=== PATIENT | male | born 1975 | race Caucasian/White ===

== ENCOUNTER 2017-01-09 21:47 | Inpatient (IN) | payer BC ==
[~2017-01-09] VITALS: Ht 190.5 cm; Wt 117.3 kg
[~2017-01-09 21:47] MED LIST: DEXT20TA2 PO; FAMO-63 PO; HYDR-2666 PO; HYDR-971 PO; HYDR1TAB10 PO; INSU100C SQ; INSU100I27 SQ; INSU100I30 SQ; LISI10TA2 PO; LORA0.5T96 PO; OLME40TA PO; ONDA4TAB10 PO; ONDA4TAB7 PO; OXYC-244 PO; SIMV40TA3 PO; ZOLP10TA PO
[2017-01-09] MEDS ORDERED: IV NORMAL SALINE 1000ML BAG 1,000 ML IV SCH (22:30)
[2017-01-09 22:43] LABS: BASO % 0 % (0-3); EOS % 2 % (0-3); HEMOGLOBIN 16.3 g/dL (13.0-17.5); LYMPH # 1.5 x10^3/uL (1.0-4.8); LYMPH % 18 % (24-48); MEAN CORPUSCULAR HEMOGLOBIN 31 pg (25-35); MEAN CORPUSCULAR HGB CONC 35 g/dL (31-37); MEAN CORPUSCULAR VOLUME 88 fL (79-100); MONO % 6 % (0-9); NEUT % 75 % (31-73); PLATELET COUNT 269 x10^3/uL (140-400); RED BLOOD COUNT 5.35 x10^6/uL (4.30-5.70); RED CELL DISTRIBUTION WIDTH 12.9 % (11.5-14.5); WHITE BLOOD COUNT 8.8 x10^3/uL (4.0-11.0)
[2017-01-09 23:03] LABS: ALBUMIN 3.4 g/dL (3.4-5.0); ALBUMIN/GLOBULIN RATIO 0.8 (1.0-1.7); CALCIUM 9.2 mg/dL (8.5-10.1); CREATININE 1.3 mg/dL (0.7-1.3); GFR 60.8; POTASSIUM 4.1 mmol/L (3.5-5.1); TOTAL BILIRUBIN 0.7 mg/dL (0.2-1.0); TOTAL PROTEIN 7.9 g/dL (6.4-8.2)
--- NOTE | 2017-01-09 23:26 | PHYS DOC ---
Past Medical History Past Medical History: Diabetes-Type I, Hypertension Past Surgical History: Other Additional Past Surgical Histo: BILATERAL SHOULDER Alcohol Use: Occasionally Drug Use: None Adult General Chief Complaint Chief Complaint: BLOOD SUGAR PROBLEM HPI HPI Patient is a 41 year old female male who comes to the ED with a complaint of blood sugars running high. Patient states his blood sugars have been in the 400s for about 2 days and this evening was too high to register on his Accu- Chek machine. During this time, he has not felt very well, he felt fatigued, he' s had a chest cold with a cough. He denies fever or chills, he has not been short of air. Patient has had diabetes since 2004. He's been on insulin all of that time. He previously was on an insulin pump but since then he was not able to afford it. He uses Tresiba long-acting insulin 2 units daily, and he also takes Humalog 1- 10 units with food. Tonight at 6:15 PM he took 30 units of Humalog and 3 hours later his blood sugar was still over 500. Patient also complains of right shoulder pain, he is going to be having surgery on that shoulder sometimes soon, he take Vicoprofen for the pain at home. Primary care [place] nurse practitioner in the office of Review of Systems Review of Systems Constitutional: Denies fever or chills [] Eyes: Denies change in visual acuity, redness, or eye pain [] HENT: Denies nasal congestion or sore throat [] Respiratory: As in history of present illness, chest congestion and cough but no shortness of breath Cardiovascular: Denies chest pain that sounds cardiac GI: Denies abdominal pain, nausea, vomiting, bloody stools or diarrhea [] : Denies dysuria or hematuria [] Musculoskeletal: Right shoulder pain Integument: Denies rash or skin lesions [] Neurologic: Denies headache, focal weakness or sensory changes [] Endocrine: As in history of present illness Current Medications Current Medications Current Medications Medications (Trade) Dose Ordered Sig/Radha Start Time Stop Time Status Last Admin Dose Admin Dextrose (Dextrose 50%-Water Syringe) 12.5 gm PRN Q15MIN PRN 01/09/17 23:30 Insulin Human Regular (NovoLIN R VIAL) 5 unit 1X ONCE 01/09/17 23:30 01/09/17 23:31 DC 01/09/17 23:27 5 UNIT Ondansetron HCl (Zofran) 4 mg PRN Q8HRS PRN 01/09/17 23:30 01/10/17 23:29 Sodium Chloride 1,000 ml @ 200 mls/hr Q5H 01/09/17 23:30 01/10/17 23:29 01/10/17 00:15 200 MLS/HR Allergies Allergies Allergies Coded Allergies Type Severity Reaction Last Updated Verified No Known Drug Allergies 02/17/16 No Physical Exam Physical Exam Constitutional: Well developed, well nourished, no acute distress, non-toxic appearance. Alert, mentating normally. HENT: Normocephalic, atraumatic, bilateral external ears normal, nose normal. [] Eyes: conjunctiva normal, no discharge. [] Neck: Normal range of motion, no stridor. [] Cardiovascular:Heart rate regular rhythm, no murmur [] Lungs & Thorax: Bilateral breath sounds clear to auscultation [] Abdomen: Bowel sounds normal, soft, no tenderness, no masses, no pulsatile masses. [] Skin: Warm, dry, no erythema, no rash. [] Back: No tenderness, no CVA tenderness. [] Extremities: No tenderness, no cyanosis, no clubbing, ROM intact, no edema. [] Neurologic: Alert and oriented X 3, normal motor function, normal sensory function, no focal deficits noted. [] Current Patient Data Vital Signs Vital Signs Date Time Temp Pulse Resp B/P (MAP) Pulse Ox O2 Delivery O2 Flow Rate FiO2 01/09/17 23:15 81 143/96 (112) 92 Room Air 01/09/17 22:12 97.5 18 97.5 Lab Values Laboratory Tests Test 01/09/17 22:11 01/09/17 22:35 Glucose (Fingerstick) 592 mg/dL (70-99) *H White Blood Count 8.8 x10^3/uL (4.0-11.0) Red Blood Count 5.35 x10^6/uL (4.30-5.70) Hemoglobin 16.3 g/dL (13.0-17.5) Hematocrit 47.0 % (39.0-53.0) Mean Corpuscular Volume 88 fL (79-100) Mean Corpuscular Hemoglobin 31 pg (25-35) Mean Corpuscular Hemoglobin Concent 35 g/dL (31-37) Red Cell Distribution Width 12.9 % (11.5-14.5) Platelet Count 269 x10^3/uL (140-400) Neutrophils (%) (Auto) 75 % (31-73) H Lymphocytes (%) (Auto) 18 % (24-48) L Monocytes (%) (Auto) 6 % (0-9) Eosinophils (%) (Auto) 2 % (0-3) Basophils (%) (Auto) 0 % (0-3) Neutrophils # (Auto) 6.6 x10^3uL (1.8-7.7) Lymphocytes # (Auto) 1.5 x10^3/uL (1.0-4.8) Monocytes # (Auto) 0.5 x10^3/uL (0.0-1.1) Eosinophils # (Auto) 0.1 x10^3/uL (0.0-0.7) Basophils # (Auto) 0.0 x10^3/uL (0.0-0.2) Sodium Level 130 mmol/L (136-145) L Potassium Level 4.1 mmol/L (3.5-5.1) Chloride Level 93 mmol/L (98-107) L Carbon Dioxide Level 26 mmol/L (21-32) Anion Gap 11 (6-14) Blood Urea Nitrogen 24 mg/dL (8-26) Creatinine 1.3 mg/dL (0.7-1.3) Estimated GFR (Cockcroft-Gault) 60.8 BUN/Creatinine Ratio 18 (6-20) Glucose Level 594 mg/dL (70-99) *H Calcium Level 9.2 mg/dL (8.5-10.1) Total Bilirubin 0.7 mg/dL (0.2-1.0) Aspartate Amino Transferase (AST) 11 U/L (15-37) L Alanine Aminotransferase (ALT) 28 U/L (16-63) Alkaline Phosphatase 133 U/L (46-116) H Total Protein 7.9 g/dL (6.4-8.2) Albumin 3.4 g/dL (3.4-5.0) Albumin/Globulin Ratio 0.8 (1.0-1.7) L Laboratory Tests 01/09/17 22:35 Laboratory Tests 01/09/17 22:35 EKG EKG [] Radiology/Procedures Radiology/Procedures One view portable chest x-ray read by me. No acute cardiopulmonary abnormality. [] Course & Med Decision Making Course & Med Decision Making Pertinent Labs and Imaging studies reviewed. (See chart for details) 41-year-old male with a history of diabetes presents with elevated blood sugars for the last 2 days over 500. Here, his blood sugar is 594. He was given a liter of IV fluids and was given insulin 5 units IV. The patient has taken large doses of insulin at home to try to get his blood sugar down and has not been successful. I feel that it is unsafe for him to continue to administer large doses at home. I feel he needs to be hospitalized for blood sugar control. I discussed the case with Dr. Guardado, who agreed to admit the patient to the hospital. I wrote bridge orders. Patient is agreeable to be admitted for control of his blood sugar. I wrote for a sliding scale insulin and IV fluids. [] Dragon Disclaimer Dragon Disclaimer This electronic medical record was generated, in whole or in part, using a voice recognition dictation system. Departure Departure Impression: Primary Impression: Hyperglycemia Disposition: ADMITTED INPATIENT Admitting Physician: Milan Guardado Condition: STABLE Referrals: MILAN GUARDADO MD (PCP) DEBRA LOPEZ MD January 09, 2017 23:26
[2017-01-09] MEDS ORDERED: INSULIN REGULAR 100 UNIT/ML 10ML VIAL. IV ONE (23:30)
[2017-01-09] MEDS ORDERED: ONDANSETRON PF 4 MG/2 ML VIAL. IV PRN (23:30)
[2017-01-09] MEDS ORDERED: DEXTROSE 50% 25 GM / 50ML DISP.SYRIN. IV PRN (23:30)
[2017-01-09] MEDS ORDERED: ONDANSETRON PF 4 MG/2 ML VIAL. IV ONE (23:45)
[2017-01-09] MEDS ORDERED: HYDROcodone/APAP 10/325 1 TAB TABLET PO ONE (23:45)
[2017-01-10] MEDS: IV NORMAL SALINE 1000ML BAG 1,000 ML IV SCH ×3 (00:15→09:10)
[2017-01-10 00:44] VITALS: BP 132/99
[2017-01-10] MEDS ORDERED: HYDR-79 PO (00:46)
[2017-01-10] MEDS ORDERED: OMEP40CA5 PO (00:46)
[2017-01-10] MEDS ORDERED: ALPR1TAB2 PO (00:46)
[2017-01-10] MEDS ORDERED: OLME1TAB35 PO (00:46)
[2017-01-10] MEDS ORDERED: HYDROcodone/APAP 5/325MG 1 TAB TABLET PO PRN ×2 (01:00→01:15)
[2017-01-10 07:00] VITALS: BP 122/90
--- NOTE | 2017-01-10 08:16 | RAD ---
EXAM: CHEST 1 VIEW DATE: 07/05/2016 History: Elevated blood sugar, cough, congestion COMPARISON: None available. TECHNIQUE: Single portable radiograph of the chest FINDINGS: The cardiac silhouette is unremarkable. The lungs are clear bilaterally. The costophrenic sulci are clear and well demarcated. IMPRESSION: No radiographic evidence of an acute cardiopulmonary process.
[2017-01-10] MEDS: INSULIN ASPART 300 UNITS/3 ML INSULN.PEN SQ SCH ×2 (08:23→11:03)
[2017-01-10 10:39] VITALS: BP 146/87
--- NOTE | 2017-01-10 14:54 | PDOC ---
GENERAL General: see discharge summary. Problems: VITAL SIGNS Vital Signs: Vital Signs Date Time Temp Pulse Resp B/P (MAP) Pulse Ox O2 Delivery O2 Flow Rate FiO2 01/10/17 10:39 97.8 70 20 146/87 (106) 95 Room Air 97.8 I & O I & O Intake and Output 01/10/17 07:00 Intake Total 1200 ml Balance 1200 ml Intake Oral 200 ml IV Total 1000 ml ALLERGIES Allergies: Allergies Coded Allergies Type Severity Reaction Last Updated Verified No Known Drug Allergies 02/17/16 No MEDS Medications: Current Medications Medications (Trade) Dose Ordered Sig/Radha Start Time Stop Time Status Last Admin Dose Admin Acetaminophen/ Hydrocodone Bitart (Lortab 10/325) 1 tab 1X ONCE 01/09/17 23:45 01/09/17 23:46 DC 01/09/17 23:34 1 TAB Acetaminophen/ Hydrocodone Bitart (Lortab /325) 2 tab PRN Q4HRS PRN 01/10/17 01:15 01/10/17 09:13 2 TAB Dextrose (Dextrose 50%-Water Syringe) 12.5 gm PRN Q15MIN PRN 01/09/17 23:30 Insulin Aspart (NovoLOG) 0-7 UNITS TIDWMEALS 01/10/17 08:00 01/10/17 11:03 15 UNITS Insulin Human Regular (NovoLIN R VIAL) 5 unit 1X ONCE 01/09/17 23:30 01/09/17 23:31 DC 01/09/17 23:27 5 UNIT Ondansetron HCl (Zofran) 4 mg PRN Q8HRS PRN 01/09/17 23:30 01/10/17 23:29 Sodium Chloride 1,000 ml @ 200 mls/hr Q5H 01/09/17 23:30 01/10/17 23:29 01/10/17 09:10 200 MLS/HR LAB Lab: Laboratory Tests Test 01/09/17 22:11 01/09/17 22:35 01/10/17 00:21 01/10/17 04:50 Glucose (Fingerstick) 592 mg/dL (70-99) 359 mg/dL (70-99) 304 mg/dL (70-99) White Blood Count 8.8 x10^3/uL (4.0-11.0) Red Blood Count 5.35 x10^6/uL (4.30-5.70) Hemoglobin 16.3 g/dL (13.0-17.5) Hematocrit 47.0 % (39.0-53.0) Mean Corpuscular Volume 88 fL (79-100) Mean Corpuscular Hemoglobin 31 pg (25-35) Mean Corpuscular Hemoglobin Concent 35 g/dL (31-37) Red Cell Distribution Width 12.9 % (11.5-14.5) Platelet Count 269 x10^3/uL (140-400) Neutrophils (%) (Auto) 75 % (31-73) Lymphocytes (%) (Auto) 18 % (24-48) Monocytes (%) (Auto) 6 % (0-9) Eosinophils (%) (Auto) 2 % (0-3) Basophils (%) (Auto) 0 % (0-3) Neutrophils # (Auto) 6.6 x10^3uL (1.8-7.7) Lymphocytes # (Auto) 1.5 x10^3/uL (1.0-4.8) Monocytes # (Auto) 0.5 x10^3/uL (0.0-1.1) Eosinophils # (Auto) 0.1 x10^3/uL (0.0-0.7) Basophils # (Auto) 0.0 x10^3/uL (0.0-0.2) Sodium Level 130 mmol/L (136-145) Potassium Level 4.1 mmol/L (3.5-5.1) Chloride Level 93 mmol/L (98-107) Carbon Dioxide Level 26 mmol/L (21-32) Anion Gap 11 (6-14) Blood Urea Nitrogen 24 mg/dL (8-26) Creatinine 1.3 mg/dL (0.7-1.3) Estimated GFR (Cockcroft-Gault) 60.8 BUN/Creatinine Ratio 18 (6-20) Glucose Level 594 mg/dL (70-99) Calcium Level 9.2 mg/dL (8.5-10.1) Total Bilirubin 0.7 mg/dL (0.2-1.0) Aspartate Amino Transf (AST/SGOT) 11 U/L (15-37) Alanine Aminotransferase (ALT/SGPT) 28 U/L (16-63) Alkaline Phosphatase 133 U/L (46-116) Total Protein 7.9 g/dL (6.4-8.2) Albumin 3.4 g/dL (3.4-5.0) Albumin/Globulin Ratio 0.8 (1.0-1.7) Test 01/10/17 07:31 01/10/17 10:25 01/10/17 11:59 Glucose (Fingerstick) 359 mg/dL (70-99) 376 mg/dL (70-99) 285 mg/dL (70-99) MILAN GUARDADO MD January 10, 2017 14:54
--- NOTE | 2017-01-10 18:39 | HP ---
ADMIT DATE: 01/09/2017 CHIEF COMPLAINT AND HISTORY OF PRESENT ILLNESS: This 41-year-old white male is followed in our office with 4 days of diabetes and hypertension. He has had extremely high blood sugars over the last couple of days in the 400s and above and on the evening of admission it was too high ____. He has not felt well over the last couple of days with runny nose, cough type symptoms. Has not been short of breath, denies any fevers or chills with it. He was profoundly hyperglycemic in the Emergency Room, but not acidotic and then elected to admit him to the hospital for blood sugar control and further evaluation. PAST MEDICAL HISTORY: Remarkable for diabetes, which he has had over 10 years at this point, he has had a history of hypertension. PAST SURGICAL HISTORY: He has had bilateral shoulder surgery. SOCIAL HISTORY: He is nonsmoker, nondrug user. Occasionally drinks alcohol. FAMILY HISTORY: Noncontributory. MEDICATIONS: Brought with the patient, listed on the computer and have been addressed. ALLERGIES: He has no known drug allergies. PHYSICAL EXAMINATION: GENERAL: He is a well-developed, well-nourished white male in no acute distress, feels much better after fluids overnight. VITAL SIGNS: Stable. He is afebrile. HEAD, EYES, EARS, NOSE AND THROAT: Remarkable, history of mild rhinitis. NECK: Supple without bruit, thyromegaly. CHEST: Clear to auscultation and percussion. HEART: Regular rate and rhythm without S3, S4 or murmur. ABDOMEN: Soft, nontender, without hepatosplenomegaly or mass. EXTREMITIES: Without cyanosis, clubbing or edema. NEUROLOGIC: Intact. CBC is unremarkable at the time of admission. Sugars have coming down into the low 300s by the time of being seeing him after starting ____. Sodium was somewhat ____without on admission on 130 with normal renal function and slightly elevated alkaline phosphatase of 133. Chest x-ray in the Emergency Room showed no evidence of acute cardiopulmonary process. PLAN: The patient has been admitted. Hydration is ongoing. We will see him as he will take sliding scale insulin has been ordered and the patient will be monitored, managed and treated appropriately. MILAN GUARDADO MD DR: DEEPA/lynda JOB#: [id number] / [id number]
--- NOTE | 2017-01-10 22:47 | DS ---
DATE OF DISCHARGE: 01/10/2017 PRIMARY DIAGNOSES: Hyperglycemia driven by viral respiratory infection. ADDITIONAL DIAGNOSES: Diabetes, hypertension. CHIEF COMPLAINT AND HISTORY OF PRESENT ILLNESS: This is a 41-year-old white male admitted through the Emergency Room with sugars in the upper 500s with 2 days of upper respiratory-type illness and sugars that were not read____ on his monitor at home. SUMMARY OF STAY: The patient was admitted and hydrated throughout the stay and began eating on the morning of admission with sliding scale insulin sugars that were down less than 300 and the patient wished for discharge, which was discussed and will be doing a close outpatient followup. Sugars have started to elevate again, but the patient felt essentially almost back to normal and it was felt that he could be dismissed. DISPOSITION: The patient is discharged to home. He is discharged on ADA diet, activity as tolerated, ____. DISCHARGE MEDICATIONS: Listed on the medical record and have been addressed. MILAN GUARDADO MD DR: DEEPA/lynda JOB#: [id number] / [id number]
== END 2017-01-10 13:15 | disposition home or self-care (01) | DRG 639 ==
LOC: ER 21:47 → 5 SOUTH 23:30
PROVIDERS: ADMIT Family Medicine; ATTEND Family Medicine
DX: E10.65 Type 1 diabetes mellitus with hyperglycemia (principal); I10 Essential (primary) hypertension; J98.8 Other specified respiratory disorders
CPT/HCPCS: 36415; 71010; 80053; 82947; 85027; J1815; J2405; J7030

== ENCOUNTER 2018-12-26 09:29 | Emergency (ER) | payer OTHER, SELFPAY ==
[~2018-12-26] VITALS: Ht 190.5 cm; Wt 124.7 kg
[~2018-12-26 09:29] MED LIST changes: +ALPR1TAB2 PO; +AMLO10TA8 PO; +ASPI-630 PO; +CARV3.1210 PO; -HYDR-2666 PO; +HYDR-2761 PO; +HYDR-2869 PO; +HYDR-3164 PO; -HYDR-971 PO; +HYDROCODONE-IB1 EAC3 PO; +LOSA100T14 PO; +OLME1TAB35 PO; -OLME40TA PO; +OLME40TA12 PO; +OMEP40CA5 PO; -OXYC-244 PO; +OXYC1TAB19 PO; +PANT20TA2 PO
[2018-12-26] MEDS ORDERED: IV NORMAL SALINE 1000ML BAG 1,000 ML IV SCH (09:41)
[2018-12-26] MEDS ORDERED: INSULIN REGULAR 100 UNIT/ML 3ML VIAL. IV ONE (09:45)
[2018-12-26] MEDS ORDERED: ONDANSETRON PF 4 MG/2 ML VIAL. ONE (09:57)
[2018-12-26] MEDS ORDERED: ONDANSETRON PF 4 MG/2 ML VIAL. IV ONE (10:00)
--- NOTE | 2018-12-26 10:00 | PHYS DOC ---
Past Medical History Past Medical History: Diabetes-Type I, Hypertension Past Surgical History: Other Additional Past Surgical Histo: SHOULDER X 6 Alcohol Use: None Drug Use: None Adult General Chief Complaint Chief Complaint: BLOOD SUGAR PROBLEM [facility] HPI Patient is a 43-year-old male who presents with complaint of nausea with vomiting and elevated blood sugar. Patient states the nausea and vomiting started last night around midnight. He states that last night he wasn't feeling well after getting home from work and went to bed at about 11:00 after which he gotten up with vomiting that started. He states that this morning he checked his blood sugar and it was above 500. Patient states that he was diagnosed with diabetes back in 2004 and is type I diabetic. Patient states that his last time with DKA was approximately 6 months ago. Patient states that he is concerned that he was starting to go into DKA again. He denies any chest pain but does admit to some shortness of breath but feels like the shortness of breath is primarily due to being overweight. He denies any abdominal pain. Review of Systems Review of Systems Constitutional: Denies fever or chills [] Respiratory: Denies cough or shortness of breath [] Cardiovascular: No additional information not addressed in HPI [] GI: Denies abdominal pain. Complains of nausea and vomiting without diarrhea [] Integument: Denies rash or skin lesions [] Neurologic: Denies headache, focal weakness or sensory changes [] All other systems were reviewed and found to be within normal limits, except as documented in this note. Current Medications Current Medications Current Medications Medications (Trade) Dose Ordered Sig/Radha Start Time Stop Time Status Last Admin Dose Admin Insulin Human Regular (HumuLIN R VIAL) 6 unit 1X ONCE 12/26/18 09:45 12/26/18 09:46 DC 12/26/18 10:03 6 UNIT Ondansetron HCl (Zofran) 4 mg STK-MED ONCE 12/26/18 09:57 12/26/18 09:58 DC Oxycodone/ Acetaminophen (Percocet 7.5/ 325) 1 tab STK-MED ONCE 12/26/18 10:30 12/26/18 10:31 DC Sodium Chloride 1,000 ml @ 1,000 mls/hr 1X ONCE 12/26/18 11:45 12/26/18 12:44 12/26/18 11:56 1,000 MLS/HR Allergies Allergies Allergies Coded Allergies Type Severity Reaction Last Updated Verified No Known Drug Allergies 02/17/16 No Physical Exam Physical Exam Constitutional: Well developed, well nourished, no acute distress, non-toxic appearance. [] HENT: Normocephalic, atraumatic, bilateral external ears normal, oropharynx moist, no oral exudates, nose normal. [] Eyes: PERRLA, EOMI, conjunctiva normal, no discharge. [] Neck: Normal range of motion, no tenderness, supple, no stridor. [] Cardiovascular:Heart rate regular rhythm, no murmur [] Lungs & Thorax: Bilateral breath sounds clear to auscultation [] Abdomen: Bowel sounds normal, soft, no tenderness. [] Skin: Warm, dry, no erythema, no rash. [] Extremities: No tenderness, no cyanosis, no clubbing, ROM intact, no edema. [] Neurologic: Alert and oriented X 3, no focal deficits noted. [] Current Patient Data Vital Signs Vital Signs Date Time Temp Pulse Resp B/P (MAP) Pulse Ox O2 Delivery O2 Flow Rate FiO2 12/26/18 11:10 79 14 140/75 (96) 96 Room Air 12/26/18 09:36 97.9 97.9 Lab Values Laboratory Tests Test 12/26/18 09:47 12/26/18 10:00 12/26/18 11:04 White Blood Count 7.5 x10^3/uL (4.0-11.0) Red Blood Count 4.69 x10^6/uL (4.30-5.70) Hemoglobin 14.0 g/dL (13.0-17.5) Hematocrit 42.3 % (39.0-53.0) Mean Corpuscular Volume 90 fL (79-100) Mean Corpuscular Hemoglobin 30 pg (25-35) Mean Corpuscular Hemoglobin Concent 33 g/dL (31-37) Red Cell Distribution Width 13.2 % (11.5-14.5) Platelet Count 276 x10^3/uL (140-400) Neutrophils (%) (Auto) 67 % (31-73) Lymphocytes (%) (Auto) 25 % (24-48) Monocytes (%) (Auto) 5 % (0-9) Eosinophils (%) (Auto) 3 % (0-3) Basophils (%) (Auto) 0 % (0-3) Neutrophils # (Auto) 5.0 x10^3uL (1.8-7.7) Lymphocytes # (Auto) 1.9 x10^3/uL (1.0-4.8) Monocytes # (Auto) 0.4 x10^3/uL (0.0-1.1) Eosinophils # (Auto) 0.3 x10^3/uL (0.0-0.7) Basophils # (Auto) 0.0 x10^3/uL (0.0-0.2) Sodium Level 136 mmol/L (136-145) Potassium Level 5.3 mmol/L (3.5-5.1) H Chloride Level 99 mmol/L (98-107) Carbon Dioxide Level 28 mmol/L (21-32) Anion Gap 9 (6-14) Blood Urea Nitrogen 17 mg/dL (8-26) Creatinine 1.0 mg/dL (0.7-1.3) Estimated GFR (Cockcroft-Gault) 81.6 BUN/Creatinine Ratio 17 (6-20) Glucose Level 483 mg/dL (70-99) H Calcium Level 9.2 mg/dL (8.5-10.1) Total Bilirubin 0.3 mg/dL (0.2-1.0) Aspartate Amino Transferase (AST) 34 U/L (15-37) Alanine Aminotransferase (ALT) 69 U/L (16-63) H Alkaline Phosphatase 152 U/L (46-116) H Total Protein 7.0 g/dL (6.4-8.2) Albumin 3.4 g/dL (3.4-5.0) Albumin/Globulin Ratio 0.9 (1.0-1.7) L Acetone Level Neg (NEG) O2 Saturation 95 % (92-99) Arterial Blood pH 7.37 (7.35-7.45) Arterial Blood pCO2 at Patient Temp 34 mmHg (35-46) L Arterial Blood pO2 at Patient Temp 81 mmHg (75-108) Arterial Blood HCO3 19 mmol/L (21-28) L Arterial Blood Base Excess -5 mmol/L (-3-3) L FiO2 21 Urine Collection Type Unknown Urine Color Yellow Urine Clarity Clear Urine pH 7.0 Urine Specific [place] 1.020 Urine Protein Negative mg/dL (NEG-TRACE) Urine Glucose (UA) >=1000 mg/dL (NEG) Urine Ketones (Stick) 15 mg/dL (NEG) Urine Blood Negative (NEG) Urine Nitrite Negative (NEG) Urine Bilirubin Negative (NEG) Urine Urobilinogen Dipstick 0.2 mg/dL (0.2 mg/dL) Urine Leukocyte Esterase Negative (NEG) Urine RBC 0 /HPF (0-2) Urine WBC 0 /HPF (0-4) Urine Bacteria 0 /HPF (0-FEW) Laboratory Tests 12/26/18 09:47 Laboratory Tests 12/26/18 09:47 EKG EKG [] Interpretation Time: EKG demonstrates normal sinus rhythm with rate of 75. Radiology/Procedures Radiology/Procedures [] Course & Med Decision Making Course & Med Decision Making Pertinent Labs and Imaging studies reviewed. (See chart for details) [] Dragon Disclaimer Dragon Disclaimer This electronic medical record was generated, in whole or in part, using a voice recognition dictation system. Departure Departure Impression: Primary Impression: Type 1 diabetes mellitus with hyperglycemia Additional Impressions: Dehydration Nausea and vomiting Disposition: 01 HOME, SELF-CARE Condition: STABLE Referrals: MILAN GUARDADO MD (PCP) Patient Instructions: Dehydration, Adult, Nausea and Vomiting, Type 1 Diabetes Mellitus, Adult Scripts Ondansetron Hcl (ZOFRAN) 4 Mg Tablet 4 MG PO PRN TID PRN for NAUSEA, #15 nausea/vomiting Prov: ALEXA LINCOLN Jr. DO 12/26/18 Problem Qualifiers Additional Impressions: Nausea and vomiting Vomiting type: unspecified Vomiting Intractability: non-intractable Qualified Codes: R11.2 - Nausea with vomiting, unspecified ALEXA LINCOLN Jr. DO December 26, 2018 10:00
[2018-12-26 10:01] LABS: BASO % 0 % (0-3); EOS # 0.3 x10^3/uL (0.0-0.7); EOS % 3 % (0-3); HEMATOCRIT 42.3 % (39.0-53.0); LYMPH # 1.9 x10^3/uL (1.0-4.8); LYMPH % 25 % (24-48); MEAN CORPUSCULAR HEMOGLOBIN 30 pg (25-35); MEAN CORPUSCULAR HGB CONC 33 g/dL (31-37); MEAN CORPUSCULAR VOLUME 90 fL (79-100); MONO # 0.4 x10^3/uL (0.0-1.1); MONO % 5 % (0-9); NEUT % 67 % (31-73); PLATELET COUNT 276 x10^3/uL (140-400); RED BLOOD COUNT 4.69 x10^6/uL (4.30-5.70); RED CELL DISTRIBUTION WIDTH 13.2 % (11.5-14.5); WHITE BLOOD COUNT 7.5 x10^3/uL (4.0-11.0)
[2018-12-26 10:08] LABS: CALCIUM 9.2 mg/dL (8.5-10.1); GFR 81.6; POTASSIUM 5.3 mmol/L (3.5-5.1)
[2018-12-26 10:14] LABS: ALBUMIN 3.4 g/dL (3.4-5.0); ALBUMIN/GLOBULIN RATIO 0.9 (1.0-1.7); TOTAL BILIRUBIN 0.3 mg/dL (0.2-1.0)
[2018-12-26] MEDS ORDERED: oxyCODONE/APAP 7.5/325 1 TAB TABLET PO ONE (10:30)
[2018-12-26] MEDS ORDERED: oxyCODONE/APAP 7.5/325 1 TAB TABLET ONE (10:30)
[2018-12-26 10:53] LABS: BASE EXCESS ABG -5 mmol/L (-3-3); HCO3 ABG 19 mmol/L (21-28); PCO2 ABG 34 mmHg (35-46); PO2 ABG 81 mmHg (75-108); SAT O2 ABG 95 % (92-99)
[2018-12-26 11:23] LABS: BILIRUBIN,URINE NEGATIVE (NEG); CLARITY,URINE CLEAR; COLOR,URINE YELLOW; NITRITE,URINE NEGATIVE (NEG); PROTEIN,URINE NEGATIVE (NEG-TRACE); UROBILINOGEN,URINE 0.2 mg/dL (0.2 mg/dL)
--- NOTE | 2018-12-26 11:26 | EKG ---
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
[2018-12-26 11:27] LABS: FIO2 ABG 21
[2018-12-26 11:39] LABS: BACTERIA,URINE 0 /HPF (0-FEW); RBC,URINE 0 /HPF (0-2); WBC,URINE 0 /HPF (0-4)
[2018-12-26] MEDS ORDERED: IV NORMAL SALINE 1000ML BAG 1,000 ML IV ONE (11:45)
[2018-12-26 12:10] VITALS: BP 142/78
[2018-12-26] MEDS ORDERED: ONDA4TAB7 PO (12:46)
== END 2018-12-26 12:57 | disposition home or self-care (01) ==
LOC: ER 09:29
DX: E10.65 Type 1 diabetes mellitus with hyperglycemia (principal); E86.0 Dehydration; R11.2 Nausea with vomiting, unspecified; I10 Essential (primary) hypertension
CPT/HCPCS: 36415; 36600; 80053; 81001; 82010; 82805; 82962; 85025; 93005; 96361; 96374; 96375; 99285; J1815; J2405; J7030

== ENCOUNTER 2019-01-12 19:34 | Inpatient (IN) | payer OTHER ==
[~2019-01-12] VITALS: Ht 190.5 cm; Wt 112.7 kg
[2019-01-12] MEDS ORDERED: IV NORMAL SALINE 1000ML BAG 1,000 ML IV ONE ×3 (20:00→22:30)
--- NOTE | 2019-01-12 20:08 | PHYS DOC ---
Past Medical History Past Medical History: Diabetes-Type I, Hypertension Past Surgical History: Other Additional Past Surgical Histo: SHOULDER X 6 Alcohol Use: None Drug Use: None Adult General Chief Complaint Chief Complaint: HYPERGLYCEMIA HPI HPI Patient is a 43 year old male with history of insulin-dependent diabetes, type I who presents with persistent hyperglycemia for the past 3 days with readings greater than 500 mg/dl accompanied with nausea and generalized malaise throughout today. Patient states he is compliant with his insulin regimen of both long and short acting insulin. He states he has been compliant with his diet and has only had a salad today. He is also been giving himself numerous correction doses of insulin. Patient has been attempting to control his diabetes as an outpatient working coordination with his PCP. He is currently trying to establish with a new knitter wire mesh. Reports some dizziness, malaise. Denies chest pain, chest heaviness, shortness of breath, vomiting, bloody stools dark tarry stools. Does report poly-urea and polydipsia. No other acute symptoms or complaints. [] Review of Systems Review of Systems ROS as per HPI. All other systems were reviewed and found to be within normal limits, except as documented in this note. Current Medications Current Medications Current Medications Medications (Trade) Dose Ordered Sig/Radha Start Time Stop Time Status Last Admin Dose Admin Insulin Glargine (Lantus) 86 units QHS 01/12/19 22:45 Insulin Human Regular (HumuLIN R VIAL) 8 unit 1X ONCE 01/12/19 22:45 01/12/19 22:46 DC Sodium Chloride 1,000 ml @ 1,000 mls/hr 1X ONCE 01/12/19 22:30 01/12/19 23:29 Allergies Allergies Allergies Coded Allergies Type Severity Reaction Last Updated Verified No Known Drug Allergies 02/17/16 No Physical Exam Physical Exam Constitutional: Well developed, well nourished, no acute distress, non-toxic appearance. [] HENT: Normocephalic, atraumatic, bilateral external ears normal, oropharynx moist, no oral exudates, nose normal. [] Eyes: PERRLA, EOMI, conjunctiva normal, no discharge. [] Neck: Normal range of motion, no tenderness, supple, no stridor. [] Cardiovascular:Heart rate regular rhythm, no murmur [] Lungs & Thorax: Bilateral breath sounds clear to auscultation [] Abdomen: Bowel sounds normal, soft, no tenderness. [] Skin: Warm, dry, no erythema, no rash. [] Back: No tenderness, no CVA tenderness. [] Extremities: No tenderness, no cyanosis, no clubbing, ROM intact, no edema. [] Neurologic: Alert and oriented X 3, normal motor function, normal sensory function, no focal deficits noted. [] Psychologic: Affect normal, judgement normal, mood normal. [] Current Patient Data Vital Signs Vital Signs Date Time Temp Pulse Resp B/P (MAP) Pulse Ox O2 Delivery O2 Flow Rate FiO2 01/12/19 22:11 75 12 196/105 (135) 98 01/12/19 19:41 98.2 Room Air 98.2 Lab Values Laboratory Tests Test 01/12/19 19:37 01/12/19 19:45 01/12/19 20:08 01/12/19 21:19 Glucose (Fingerstick) 522 mg/dL (70-99) *H 482 mg/dL (70-99) H White Blood Count 8.4 x10^3/uL (4.0-11.0) Red Blood Count 4.70 x10^6/uL (4.30-5.70) Hemoglobin 14.5 g/dL (13.0-17.5) Hematocrit 43.2 % (39.0-53.0) Mean Corpuscular Volume 92 fL (79-100) Mean Corpuscular Hemoglobin 31 pg (25-35) Mean Corpuscular Hemoglobin Concent 34 g/dL (31-37) Red Cell Distribution Width 14.4 % (11.5-14.5) Platelet Count 289 x10^3/uL (140-400) Neutrophils (%) (Auto) 56 % (31-73) Lymphocytes (%) (Auto) 35 % (24-48) Monocytes (%) (Auto) 6 % (0-9) Eosinophils (%) (Auto) 3 % (0-3) Basophils (%) (Auto) 1 % (0-3) Neutrophils # (Auto) 4.7 x10^3uL (1.8-7.7) Lymphocytes # (Auto) 3.0 x10^3/uL (1.0-4.8) Monocytes # (Auto) 0.5 x10^3/uL (0.0-1.1) Eosinophils # (Auto) 0.2 x10^3/uL (0.0-0.7) Basophils # (Auto) 0.0 x10^3/uL (0.0-0.2) Sodium Level 138 mmol/L (136-145) Potassium Level 4.7 mmol/L (3.5-5.1) Chloride Level 100 mmol/L (98-107) Carbon Dioxide Level 26 mmol/L (21-32) Anion Gap 12 (6-14) Blood Urea Nitrogen 21 mg/dL (8-26) Creatinine 1.2 mg/dL (0.7-1.3) Estimated GFR (Cockcroft-Gault) 66.1 BUN/Creatinine Ratio 18 (6-20) Glucose Level 556 mg/dL (70-99) *H Calcium Level 9.1 mg/dL (8.5-10.1) Total Bilirubin 0.2 mg/dL (0.2-1.0) Aspartate Amino Transferase (AST) 26 U/L (15-37) Alanine Aminotransferase (ALT) 50 U/L (16-63) Alkaline Phosphatase 237 U/L (46-116) H Troponin I Quantitative < 0.017 ng/mL (0.000-0.055) Total Protein 7.0 g/dL (6.4-8.2) Albumin 3.4 g/dL (3.4-5.0) Albumin/Globulin Ratio 0.9 (1.0-1.7) L Acetone Level Neg (NEG) Urine Collection Type Unknown Urine Color Yellow Urine Clarity Clear Urine pH 6.5 Urine Specific [place] 1.025 Urine Protein Negative mg/dL (NEG-TRACE) Urine Glucose (UA) >=1000 mg/dL (NEG) Urine Ketones (Stick) Negative mg/dL (NEG) Urine Blood Negative (NEG) Urine Nitrite Negative (NEG) Urine Bilirubin Negative (NEG) Urine Urobilinogen Dipstick 0.2 mg/dL (0.2 mg/dL) Urine Leukocyte Esterase Negative (NEG) Urine RBC Rare /HPF (0-2) Urine WBC 1-4 /HPF (0-4) Urine Squamous Epithelial Cells None /LPF Urine Bacteria 0 /HPF (0-FEW) Test 01/12/19 22:25 Glucose (Fingerstick) 340 mg/dL (70-99) H Laboratory Tests 01/12/19 19:45 Laboratory Tests 01/12/19 19:45 EKG EKG [EKG: Reviewed] Radiology/Procedures Radiology/Procedures [Chest x-ray: Reviewed] Course & Med Decision Making Course & Med Decision Making Pertinent Labs and Imaging studies reviewed. (See chart for details) [Persistent hyperglycemia, nausea despite IV fluids, repeat insulin testing. No obvious precipitating factors. Patient given evening dose of long-acting insulin along with bolus insulin. Will admit to PCP for further management.] Dragon Disclaimer Dragon Disclaimer This electronic medical record was generated, in whole or in part, using a voice recognition dictation system. Departure Departure Impression: Primary Impression: Hyperglycemia Additional Impression: Nausea and vomiting Disposition: ADMITTED INPATIENT Admitting Physician: Milan Guardado Condition: STABLE Referrals: MILAN GUARDADO MD (PCP) Problem Qualifiers OCTAVIA MERCADO DO January 12, 2019 20:08
[2019-01-12 20:11] LABS: BASO % 1 % (0-3); EOS # 0.2 x10^3/uL (0.0-0.7); EOS % 3 % (0-3); HEMATOCRIT 43.2 % (39.0-53.0); HEMOGLOBIN 14.5 g/dL (13.0-17.5); LYMPH % 35 % (24-48); MEAN CORPUSCULAR HEMOGLOBIN 31 pg (25-35); MEAN CORPUSCULAR HGB CONC 34 g/dL (31-37); MEAN CORPUSCULAR VOLUME 92 fL (79-100); MONO # 0.5 x10^3/uL (0.0-1.1); MONO % 6 % (0-9); NEUT # 4.7 x10^3uL (1.8-7.7); NEUT % 56 % (31-73); PLATELET COUNT 289 x10^3/uL (140-400); RED CELL DISTRIBUTION WIDTH 14.4 % (11.5-14.5); WHITE BLOOD COUNT 8.4 x10^3/uL (4.0-11.0)
[2019-01-12] MEDS ORDERED: INSULIN REGULAR 100 UNIT/ML 3ML VIAL. SQ ONE ×2 (20:15→22:45)
[2019-01-12 20:27] LABS: BILIRUBIN,URINE NEGATIVE (NEG); CLARITY,URINE CLEAR; COLOR,URINE YELLOW; NITRITE,URINE NEGATIVE (NEG); PH,URINE 6.5; PROTEIN,URINE NEGATIVE (NEG-TRACE); UROBILINOGEN,URINE 0.2 mg/dL (0.2 mg/dL)
[2019-01-12 20:30] LABS: ALBUMIN 3.4 g/dL (3.4-5.0); ALBUMIN/GLOBULIN RATIO 0.9 (1.0-1.7); CALCIUM 9.1 mg/dL (8.5-10.1); CREATININE 1.2 mg/dL (0.7-1.3); GFR 66.1; POTASSIUM 4.7 mmol/L (3.5-5.1); TOTAL BILIRUBIN 0.2 mg/dL (0.2-1.0)
[2019-01-12 20:37] LABS: RBC,URINE RARE /HPF (0-2)
[2019-01-12 20:38] LABS: BACTERIA,URINE 0 /HPF (0-FEW)
[2019-01-12] MEDS: INSULIN GLARGINE 300 UNITS/3 ML INSULN.PEN. SQ SCH (22:51)
[2019-01-12] MEDS ORDERED: ONDANSETRON PF 4 MG/2 ML VIAL. IV PRN (23:15)
[2019-01-13] VITALS (8 sets, daily range): BP systolic 141–176; BP diastolic 86–112
[2019-01-13] MEDS ORDERED: OLME1TAB PO (00:40)
[2019-01-13] MEDS ORDERED: GABA300C18 PO (00:40)
[2019-01-13] MEDS ORDERED: MODA100T2 PO (00:40)
[2019-01-13] MEDS: IV NORMAL SALINE 1000ML BAG 1,000 ML IV SCH ×4 (00:42→20:13)
[2019-01-13] MEDS: ACETAMINOPHEN 325 MG TABLET. PO PRN (05:08)
[2019-01-13] MEDS ORDERED: amLODIPine BESYLATE 5 MG TABLET PO ONE (05:15)
[2019-01-13 06:07] LABS: BASO % 1 % (0-3); EOS # 0.3 x10^3/uL (0.0-0.7); EOS % 5 % (0-3); HEMATOCRIT 37.3 % (39.0-53.0); HEMOGLOBIN 12.7 g/dL (13.0-17.5); LYMPH # 2.8 x10^3/uL (1.0-4.8); LYMPH % 48 % (24-48); MEAN CORPUSCULAR HEMOGLOBIN 31 pg (25-35); MEAN CORPUSCULAR HGB CONC 34 g/dL (31-37); MEAN CORPUSCULAR VOLUME 91 fL (79-100); MONO # 0.4 x10^3/uL (0.0-1.1); MONO % 8 % (0-9); NEUT # 2.2 x10^3uL (1.8-7.7); NEUT % 39 % (31-73); PLATELET COUNT 247 x10^3/uL (140-400); RED BLOOD COUNT 4.09 x10^6/uL (4.30-5.70); RED CELL DISTRIBUTION WIDTH 14.3 % (11.5-14.5); WHITE BLOOD COUNT 5.8 x10^3/uL (4.0-11.0)
[2019-01-13 06:23] LABS: ALBUMIN 2.7 g/dL (3.4-5.0); ALBUMIN/GLOBULIN RATIO 0.8 (1.0-1.7); CALCIUM 8.2 mg/dL (8.5-10.1); CREATININE 0.7 mg/dL (0.7-1.3); GFR 123.1; POTASSIUM 3.3 mmol/L (3.5-5.1); TOTAL BILIRUBIN 0.1 mg/dL (0.2-1.0); TOTAL PROTEIN 5.9 g/dL (6.4-8.2)
[2019-01-13] MEDS ORDERED: DEXTROSE 50% 25 GM / 50ML DISP.SYRIN. IV ONE (08:15)
--- NOTE | 2019-01-13 08:20 | NUR ---
Nurse was informed FSBS was 32, was given 4 juices. Nurse to bedside to administer amp glucose, was informed fsbs now 92. Have ordered lab glucose as well. IV dextrose not given at this time. Patient ate 100% of breakfast.
[2019-01-13] MEDS: FAMOTIDINE 20 MG/2 ML VIAL IVP SCH ×2 (08:32→21:10)
--- NOTE | 2019-01-13 09:48 | EKG ---
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
[2019-01-13] MEDS ORDERED: DEXTROSE 50% 25 GM / 50ML DISP.SYRIN. IV PRN (11:15)
[2019-01-13] MEDS: INSULIN LISPRO 300 UNITS/3 ML INSULN.PEN. SQ SCH ×2 (12:00→17:55)
[2019-01-13] MEDS: amLODIPine BESYLATE 10 MG TABLET PO SCH (12:00)
[2019-01-13] MEDS: LOSARTAN POTASSIUM 50 MG TABLET. PO SCH (12:01)
[2019-01-13] MEDS: GABAPENTIN 400 MG CAPSULE. PO SCH ×2 (14:35→21:10)
--- NOTE | 2019-01-13 17:46 | HP ---
ADMIT DATE: 01/12/2019 CHIEF COMPLAINT AND HISTORY OF PRESENT ILLNESS: This 43-year-old white male is well known to my office. The patient has a long history of insulin-dependent diabetes type 1 who presented with hyperglycemia persisting over the last several days of greater than 500 with generalized nausea and malaise, polyuria, polydipsia. He has been compliant with his insulin regimen of both long and short-acting insulin. He has been compliant with his diet. He is giving himself numerous correction doses of insulin. He is within a couple of weeks of seeing a new family and consumer education teacher for further help with trying to regulate his sugars. He denies any infectious type symptoms leading up to this. Denies any chest pain, shortness of breath and a good explanation for why he should be having the difficulties that he is having. PAST MEDICAL HISTORY: Remarkable for hypertension, type 1 diabetes. PAST SURGICAL HISTORY: Remarkable for multiple shoulder surgeries. MEDICATIONS: Brought with the patient, listed on the computer, have been addressed. ALLERGIES: He has no known drug allergies. SOCIAL HISTORY: He is a nonsmoker, nondrinker, does not use drugs. , lives at home with his family. FAMILY HISTORY: Noncontributory. REVIEW OF SYSTEMS: As mentioned above. PHYSICAL EXAMINATION: GENERAL: He is a well-developed, well-nourished white male, in no acute distress. VITAL SIGNS: Reveal an elevated blood pressure. Otherwise, vitals are stable. He is afebrile. HEAD, EYES, EARS, NOSE AND THROAT: Unremarkable. NECK: Supple, no adenopathy or thyromegaly. CHEST: Clear to auscultation and percussion. HEART: Regular rate and rhythm without S3, S4 or murmur. ABDOMEN: Soft, nontender, without hepatosplenomegaly or masses. EXTREMITIES: Without cyanosis, clubbing, or edema. NEUROLOGIC: He is intact. LABORATORY DATA: Initial labs show a normal CBC. His initial glucose is 522 and 556 on admission, CO2 level is in the normal range at 26 with no evidence of acidosis. Electrolytes and renal function are within normal limits. Acetone level was negative. Urine shows no evidence of ketones. IMPRESSION: 1. Extreme hyperglycemia, symptomatic with nausea and vomiting. 2. Hypertension with elevated blood pressures currently. PLAN: IV hydration, insulin administration with sliding scale to get sugars under control. I see no obvious cause of initiator of this on his exam or his initial lab work. I agree wholeheartedly with Endocrine evaluation after discharge as the patient is a very brittle diabetic. MILAN GUARDADO MD DR: DEEPA/lynda JOB#: [id number] / [id number]
[2019-01-13] MEDS ORDERED: ZOLPIDEM 5 MG TABLET. PO PRN (18:45)
[2019-01-13] MEDS ORDERED: CLON0.5T11 PO (18:54)
[2019-01-13] MEDS ORDERED: INSU100I17 SQ (19:21)
[2019-01-13] MEDS ORDERED: clonazePAM 0.5 MG TABLET PO PRN (19:30)
[2019-01-13] MEDS: INSULIN GLARGINE 300 UNITS/3 ML INSULN.PEN. SQ SCH (21:00)
[2019-01-13] MEDS ORDERED: SIMVASTATIN 40 MG TABLET. PO SCH (21:00)
--- NOTE | 2019-01-13 21:30 | NUR ---
Per pt request, only administered 43 units of Insulin Glargine. Pts BG was 188, and pt was afraid of waking up again with a low BG. Will continue to monitor.
[2019-01-14] MEDS: ACETAMINOPHEN 325 MG TABLET. PO PRN (00:10)
[2019-01-14 03:00] VITALS: BP 123/79
[2019-01-14 07:00] VITALS: BP 151/98
[2019-01-14] MEDS: INSULIN LISPRO 300 UNITS/3 ML INSULN.PEN. SQ SCH ×4 (08:00→12:15)
[2019-01-14] MEDS: FAMOTIDINE 20 MG/2 ML VIAL IVP SCH (08:55)
[2019-01-14] MEDS: LOSARTAN POTASSIUM 50 MG TABLET. PO SCH (08:57)
[2019-01-14] MEDS: GABAPENTIN 400 MG CAPSULE. PO SCH (08:58)
[2019-01-14] MEDS: amLODIPine BESYLATE 10 MG TABLET PO SCH (08:58)
[2019-01-14] MEDS ORDERED: ASPIRIN CHEWABLE 81 MG TABLET. PO SCH (09:00)
[2019-01-14] MEDS ORDERED: hydroCHLOROthiazide 25 MG TABLET PO SCH (09:00)
--- NOTE | 2019-01-14 10:32 | NUR ---
SW following pt for anticipated dc needs. Chart reviewed. Pt lives at home with family and no SW needs noted at this time.
[2019-01-14 11:00] VITALS: BP 165/105
--- NOTE | 2019-01-14 12:26 | NUR ---
Discharge teaching provided written and verbal to pt,understanding verbalized. Dismissed to home with all belongings by himself. Ambulted to exit with SBA at 1225. Pt's car in in parking lot to drive himself home.
--- NOTE | 2019-01-14 19:09 | DS ---
DATE OF DISCHARGE: 01/14/2019 PRIMARY DIAGNOSIS: Hyperglycemia. ADDITIONAL DIAGNOSES: 1. Nausea and vomiting. 2. Brittle type 1 diabetes. 3. Hypertension. CHIEF COMPLAINT AND HISTORY OF PRESENT ILLNESS: This 43-year-old white male is well known to my office. He has long history of insulin-dependent type 1 diabetes, presented with hyperglycemia persisting over several days of greater than 500 with generalized nausea, malaise, polyuria, polydipsia. He had been compliant with his insulin regimen of both long and short-acting insulins, also been compliant with his diet. He was giving himself numerous correction doses of insulin, but not getting anywhere. He is within a couple of weeks seeing a new blending coordinator for further help trying to regulate his sugars. He has recently in the last week or so had a knee arthroscopy. He denies any infectious symptoms leading up to this, any chest pain, shortness of breath or any good explanation for why would have the difficulties that he is having. SUMMARY OF STAY: The patient was admitted and treated with sliding scale insulin as home dose of long-acting insulin and hydrated vigorously. Initial hemoglobin was 14.5, dropped to 12.7 with hydration. Sugars came under much better control. Potassium did drop a little bit at 3.3 and he was asked to increase his potassium intake at home. Initial sugars were in the mid 500s and again was down consistently 200 or less by the time of discharge. DISPOSITION: The patient is discharged to home, ADA diet, activity as tolerated, office within one week. He is to resume his regular home regimen at this point in time with sliding scale will be done here in the hospital and to notify us if in the meantime things seem to get worse instead of better. MILAN GUARDADO MD DR: DEEPA/lynda JOB#: [id number] / [id number]
== END 2019-01-14 12:25 | disposition home or self-care (01) | DRG 639 ==
LOC: ER 19:34 → 5 NORTH 21:30
PROVIDERS: ADMIT Family Medicine; ATTEND Family Medicine
DX: E10.65 Type 1 diabetes mellitus with hyperglycemia (principal); I10 Essential (primary) hypertension; Z79.4 Long term (current) use of insulin
CPT/HCPCS: 36415; 80053; 81001; 82010; 82947; 82962; 84484; 85025; 93005; 96360; 96361; 96372; J1815; J3490; J7030; 99285-25

== ENCOUNTER 2019-03-17 05:33 | Emergency (ER) | payer OTHER ==
[~2019-03-17] VITALS: Ht 190.5 cm; Wt 127.0 kg
[~2019-03-17 05:33] MED LIST changes: +CLON0.5T11 PO; +GABA300C18 PO; +INSU100I17 SQ; +MODA100T2 PO; +OLME1TAB PO
[2019-03-17 05:52] LABS: BASO # 0.1 x10^3/uL (0.0-0.2); BASO % 1 % (0-3); EOS # 0.2 x10^3/uL (0.0-0.7); EOS % 3 % (0-3); HEMATOCRIT 39.6 % (39.0-53.0); HEMOGLOBIN 13.2 g/dL (13.0-17.5); LYMPH % 41 % (24-48); MEAN CORPUSCULAR HEMOGLOBIN 31 pg (25-35); MEAN CORPUSCULAR HGB CONC 33 g/dL (31-37); MEAN CORPUSCULAR VOLUME 92 fL (79-100); MONO # 0.5 x10^3/uL (0.0-1.1); MONO % 7 % (0-9); NEUT # 3.5 x10^3/uL (1.8-7.7); NEUT % 47 % (31-73); PLATELET COUNT 269 x10^3/uL (140-400); RED BLOOD COUNT 4.31 x10^6/uL (4.30-5.70); WHITE BLOOD COUNT 7.4 x10^3/uL (4.0-11.0)
[2019-03-17] MEDS ORDERED: IV NORMAL SALINE 1000ML BAG 1,000 ML IV ONE ×2 (06:00→07:00)
[2019-03-17] MEDS ORDERED: INSULIN REGULAR 100 UNIT/ML 3ML VIAL. SQ ONE (06:00)
--- NOTE | 2019-03-17 06:12 | PHYS DOC ---
Past Medical History Past Medical History: Diabetes-Type I, High Cholesterol, Hypertension (VICTORINO ABBOTT DO) Past Surgical History: Other Additional Past Surgical Histo: SHOULDER X 6 (VICTORINO ABBOTT DO) Additional Information: + CHEWING TOBACCO Alcohol Use: None Drug Use: None (VICTORINO ABBOTT DO) Adult General Chief Complaint Chief Complaint: BLOOD SUGAR PROBLEM HPI HPI 43-year-old male presents with report of elevated blood sugar over the last several days. Patient reports has had problems keeping his lead sugar under control for the past 2 weeks. Patient has followed recently with his PCP and tmh teacher and was recently started on metformin 2 weeks ago. Patient does report he is scheduled to start a insulin pump this next week. Patient reports he has been feeling generalized weakness and illness. Denies any fever or chills. Denies known trauma. Patient does report having some lower thoracic/upper lumbar pain which feels like it is in the middle of his body. Reports some associated nausea. (VICTORINO ABBOTT DO) Review of Systems Review of Systems Constitutional: Denies fever or chills Eyes: Denies redness or eye pain HENT: Denies nasal congestion or sore throat Respiratory: Denies cough or shortness of breath Cardiovascular: Denies chest pain or palpitations GI: Denies abdominal pain; reports nausea : Denies dysuria or hematuria Musculoskeletal: Reports back pain; denies extremity swelling Integument: Denies rash or skin lesions Neurologic: Denies headache, focal weakness or sensory changes Complete systems were reviewed and found to be within normal limits, except as documented in this note. (VICTORINO ABBOTT DO) Current Medications Current Medications Current Medications Medications (Trade) Dose Ordered Sig/Radha Start Time Stop Time Status Last Admin Dose Admin Amlodipine Besylate (Norvasc) 5 mg 1X ONCE 03/17/19 08:30 03/17/19 08:33 DC 03/17/19 09:07 5 MG Hydrochlorothiazide (Microzide) 25 mg 1X ONCE 03/17/19 08:30 03/17/19 08:33 DC 03/17/19 09:04 25 MG Insulin Human Regular (HumuLIN R VIAL) 10 unit 1X ONCE 03/17/19 07:00 03/17/19 07:01 DC 03/17/19 07:11 10 UNIT Iohexol (Omnipaque 300 Mg/ml) 75 ml 1X ONCE 03/17/19 08:30 03/17/19 08:34 DC 03/17/19 08:30 75 ML Ketorolac Tromethamine (Toradol 15mg Vial) 15 mg 1X ONCE 03/17/19 06:30 03/17/19 06:31 DC 03/17/19 06:30 15 MG Losartan Potassium (Cozaar) 50 mg DAILY 03/17/19 09:00 03/17/19 09:04 50 MG Multi-Ingredient Mouthwash/Gargle (Gi Cocktail) 20 ml ONCE ONCE 03/17/19 08:30 03/17/19 08:34 DC 03/17/19 08:33 20 ML Multi-Ingredient Mouthwash/Gargle (Velvet Glove Oral Susp) 10 ml PRN QID PRN 03/17/19 08:30 03/17/19 08:31 DC Sodium Chloride 1,000 ml @ 1,000 mls/hr 1X ONCE 03/17/19 07:00 03/17/19 07:59 DC 03/17/19 07:04 1,000 MLS/HR (FLAKITO HOUSER DO) Allergies Allergies Allergies Coded Allergies Type Severity Reaction Last Updated Verified No Known Drug Allergies 02/17/16 No (BRANDONLYFLAKITO T DO) Physical Exam Physical Exam Constitutional: Well developed, well nourished, no acute distress, non-toxic appearance HENT: Normocephalic, atraumatic, oropharynx tacky Eyes: Conjunctiva normal, no discharge Neck: Normal range of motion, no tenderness, supple Cardiovascular: Heart rate normal, regular rhythm Lungs & Thorax: Bilateral breath sounds clear to auscultation, no wheezing Abdomen: Soft, no tenderness, distended, no rebound tenderness or guarding Skin: Warm, dry, no erythema, no rash Back: No midline tenderness, no CVA tenderness Extremities: No tenderness, ROM intact, no edema Neurologic: Alert and oriented X 3, no focal deficits noted Psychologic: Affect normal, judgement normal (VICTORINO ABBOTT DO) Current Patient Data Vital Signs Vital Signs Date Time Temp Pulse Resp B/P (MAP) Pulse Ox O2 Delivery O2 Flow Rate FiO2 03/17/19 09:33 70 17 159/89 (112) 95 Room Air 03/17/19 05:40 98.1 98.1 (FLAKITO HOUSER DO) Lab Values Laboratory Tests Test 03/17/19 05:40 03/17/19 05:58 03/17/19 07:00 03/17/19 07:10 White Blood Count 7.4 x10^3/uL (4.0-11.0) Red Blood Count 4.31 x10^6/uL (4.30-5.70) Hemoglobin 13.2 g/dL (13.0-17.5) Hematocrit 39.6 % (39.0-53.0) Mean Corpuscular Volume 92 fL (79-100) Mean Corpuscular Hemoglobin 31 pg (25-35) Mean Corpuscular Hemoglobin Concent 33 g/dL (31-37) Red Cell Distribution Width 14.0 % (11.5-14.5) Platelet Count 269 x10^3/uL (140-400) Neutrophils (%) (Auto) 47 % (31-73) Lymphocytes (%) (Auto) 41 % (24-48) Monocytes (%) (Auto) 7 % (0-9) Eosinophils (%) (Auto) 3 % (0-3) Basophils (%) (Auto) 1 % (0-3) Neutrophils # (Auto) 3.5 x10^3/uL (1.8-7.7) Lymphocytes # (Auto) 3.0 x10^3/uL (1.0-4.8) Monocytes # (Auto) 0.5 x10^3/uL (0.0-1.1) Eosinophils # (Auto) 0.2 x10^3/uL (0.0-0.7) Basophils # (Auto) 0.1 x10^3/uL (0.0-0.2) Sodium Level 132 mmol/L (136-145) L Potassium Level 4.4 mmol/L (3.5-5.1) Chloride Level 96 mmol/L (98-107) L Carbon Dioxide Level 27 mmol/L (21-32) Anion Gap 9 (6-14) Blood Urea Nitrogen 19 mg/dL (8-26) Creatinine 1.2 mg/dL (0.7-1.3) Estimated GFR (Cockcroft-Gault) 66.1 BUN/Creatinine Ratio 16 (6-20) Glucose Level 602 mg/dL (70-99) *H Glucose (Fingerstick) 532 mg/dL (70-99) *H 489 mg/dL (70-99) H Calcium Level 8.2 mg/dL (8.5-10.1) L Magnesium Level 1.6 mg/dL (1.8-2.4) L Total Bilirubin 0.1 mg/dL (0.2-1.0) L Aspartate Amino Transferase (AST) 14 U/L (15-37) L Alanine Aminotransferase (ALT) 23 U/L (16-63) Alkaline Phosphatase 182 U/L (46-116) H Creatine Kinase 131 U/L (39-308) Creatine Kinase MB (Mass) 1.9 ng/mL (0.0-3.6) Creatine Kinase MB Relative Index 1.5 % (0-4) Troponin I Quantitative < 0.017 ng/mL (0.000-0.055) Total Protein 6.3 g/dL (6.4-8.2) L Albumin 3.2 g/dL (3.4-5.0) L Albumin/Globulin Ratio 1.0 (1.0-1.7) Lipase 59 U/L (73-393) L Acetone Level Neg (NEG) Lactic Acid Level 3.1 mmol/L (0.4-2.0) H Urine Collection Type Unknown Urine Color Yellow Urine Clarity Clear Urine pH 6.0 Urine Specific [place] 1.025 Urine Protein Negative mg/dL (NEG-TRACE) Urine Glucose (UA) >=1000 mg/dL (NEG) Urine Ketones (Stick) Negative mg/dL (NEG) Urine Blood Negative (NEG) Urine Nitrite Negative (NEG) Urine Bilirubin Negative (NEG) Urine Urobilinogen Dipstick 0.2 mg/dL (0.2 mg/dL) Urine Leukocyte Esterase Negative (NEG) Urine RBC 0 /HPF (0-2) Urine WBC 0 /HPF (0-4) Urine Squamous Epithelial Cells Occ /LPF Urine Bacteria 0 /HPF (0-FEW) Test 03/17/19 08:13 03/17/19 09:28 Glucose (Fingerstick) 349 mg/dL (70-99) H 296 mg/dL (70-99) H Laboratory Tests 03/17/19 05:40 Laboratory Tests 03/17/19 05:40 (FLAKITO HOUSER DO) EKG EKG @0549 NSR at 82bpm. No ST elevation, QRS 106ms, QT/QTc 374/440ms (VICTORINO ABBOTT DO) Radiology/Procedures Radiology/Procedures [] (VICTORINO ABBOTT DO) Radiology/Procedures CT ABD/Pelvis IMPRESSION: 1. No acute findings are identified in the abdomen or pelvis. 2. 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 Electronically signed by: Victorino Carmona MD (03/17/2019 9:37 AM) [facility] ABD US IMPRESSION: 1. Hepatomegaly and likely hepatic steatosis. 2. Splenomegaly. Electronically signed by: Alvin Figueroa MD (03/17/2019 8:07 AM) [facility] (FLAKITO HOUSER DO) Course & Med Decision Making Course & Med Decision Making Patient is a type I diabetic presents with report of elevated blood sugars in the 500s over the last several days. Patient reports has had problems keeping it under control over the last 2 weeks. Does report some back pain as well as nausea that started today. Pain addressed. Nausea addressed. Accu-Chek in the 500s. Insulin initiated. IV fluid hydration provided. Labs obtained and pending. Sign out given to Dr. Morgan for further evaluation and final disposition. Discussed current findings and plan with patient, who acknowledges understanding and agreement. (VICTORINO ABBOTT DO) Course & Med Decision Making Transfer care from Dr. Abbott at approximately 06 100. Patient has continued to improve with IV hydration and insulin. Blood sugar now less than 300. Discussed with Gabriela Farmer endocrinology INVESTMENT FUND MANAGER who has seen the patient. Recommendations increased long-acting insulin 120 units at night and to increase corrections to 6 units per 50/150. Will provide follow up in 1-2 weeks. Discussed this with patient. Ultrasound to evaluate patient's continued epigastric pain in the ED with no acute findings. Aorta was not visualized secondary to bowel gas. Patient continued to complain of pain and a CT abdomen and pelvis was done to rule out any acute findings. This is reassuring. Lipase normal. Requesting discharge at this point. Patient is able to continue to manage his blood sugar at home he has no acidosis on his BMP. Advised continue close monitoring of blood sugar and appropriate dosing as needed. ER return precautions given. Patient verbalized understanding. All questions answered. (FLAKITO HOUSER DO) Dragon Disclaimer Dragon Disclaimer This electronic medical record was generated, in whole or in part, using a voice recognition dictation system. (VICTORINO ABBOTT DO) Departure Departure Impression: Primary Impression: Hyperglycemia Additional Impressions: Back pain Epigastric abdominal pain Hypertension Disposition: HOME, SELF-CARE Condition: IMPROVED Referrals: MILAN GUARDADO MD (PCP) Patient Instructions: Hyperglycemia Additional Instructions: Thank you for coming to [facility]. Please read the attached handouts. Please follow-up with your primary care physician. Return to the ER if your symptoms worsen or you have any other concerns. Increase your long acting Insulin to 120U/every night Increase your correction dose to 6 units for every 50 over 150. Continue to monitor your glucose closely. Gabriela Mandel's office will be calling for a sooner appointment. Problem Qualifiers Additional Impressions: Back pain Back pain location: thoracic back pain Chronicity: acute Back pain laterality: bilateral Qualified Codes: M54.6 - Pain in thoracic spine VICTORINO ABBOTT DO Mar 17, 2019 06:12 FLAKITO HOUSER DO Mar 17, 2019 09:52
[2019-03-17 06:13] LABS: ALBUMIN 3.2 g/dL (3.4-5.0); CALCIUM 8.2 mg/dL (8.5-10.1); CREATININE 1.2 mg/dL (0.7-1.3); GFR 66.1; MAGNESIUM 1.6 mg/dL (1.8-2.4); POTASSIUM 4.4 mmol/L (3.5-5.1); TOTAL BILIRUBIN 0.1 mg/dL (0.2-1.0); TOTAL PROTEIN 6.3 g/dL (6.4-8.2)
[2019-03-17] MEDS ORDERED: KETOROLAC 15 MG/ML VIAL. IV ONE (06:30)
[2019-03-17] MEDS ORDERED: INSULIN REGULAR 100 UNIT/ML 3ML VIAL. IV ONE (07:00)
--- NOTE | 2019-03-17 07:00 | EKG ---
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
[2019-03-17 07:20] LABS: BILIRUBIN,URINE NEGATIVE (NEG); CLARITY,URINE CLEAR; COLOR,URINE YELLOW; NITRITE,URINE NEGATIVE (NEG); PROTEIN,URINE NEGATIVE (NEG-TRACE); UROBILINOGEN,URINE 0.2 mg/dL (0.2 mg/dL)
[2019-03-17 07:30] LABS: BACTERIA,URINE 0 /HPF (0-FEW); RBC,URINE 0 /HPF (0-2); SQUAMOUS EPITHELIAL CELL,UR OCC /LPF; WBC,URINE 0 /HPF (0-4)
--- NOTE | 2019-03-17 08:10 | RAD ---
CLINICAL HISTORY: Abdominal pain COMPARISON: None available. TECHNIQUE: Ultrasound of the upper abdomen was performed. FINDINGS: The liver measures 21.6 cm in length in the right mid clavicular line. The hepatic margin is smooth. Mild increased hepatic echogenicity with limited sonographic penetration likely from fatty liver. There are no focal liver lesions. Flow is identified in the hepatic veins and portal veins with normal waveforms. The gallbladder is normal in appearance without evidence for cholelithiasis. There is no wall thickening or pericholecystic fluid. There is no pain with direct transducer pressure over the gallbladder. The common bile duct measures 0.5 cm. The spleen is enlarged in size. It measures 14 cm in length Pancreas is obscured by overlying bowel gas. The right kidney measures 12.8 cm in bipolar length. The left kidney measures 14.2 cm in bipolar length. Normal renal cortical echogenicity. No focal renal lesion. No hydronephrosis. Aorta and IVC are mostly obscured by overlying bowel gas. There is no free fluid in the upper abdomen. IMPRESSION: 1. Hepatomegaly and likely hepatic steatosis. 2. Splenomegaly. Electronically signed by: Alvin Figueroa MD (03/17/2019 8:07 AM) [facility]
[2019-03-17] MEDS ORDERED: amLODIPine BESYLATE 5 MG TABLET PO ONE (08:30)
[2019-03-17] MEDS ORDERED: IOHEXOL 300 MG/ML 100ML VIAL. IV ONE (08:30)
[2019-03-17] MEDS ORDERED: MAALOX:LIDO:APAP 6:2:1 ORAL SUSPENSION 180 ML BOTTLE. PO PRN (08:30)
[2019-03-17] MEDS ORDERED: hydroCHLOROthiazide 12.5 MG CAPSULE PO ONE (08:30)
[2019-03-17] MEDS ORDERED: LIDO:MAALOX 1:1 20 ML SINGLE DOSE. PO ONE (08:30)
[2019-03-17] MEDS ORDERED: LOSARTAN POTASSIUM 50 MG TABLET. PO SCH (09:00)
[2019-03-17 09:33] VITALS: BP 159/89
--- NOTE | 2019-03-17 09:40 | RAD ---
CT ABD PELV W/ IV CONTRST ONLY Indication: Abdominal pain. Exposure: One or more of the following individualized dose reduction techniques were utilized for this examination: 1. Automated exposure control 2. Adjustment of the mA and/or kV according to patient size 3. Use of iterative reconstruction technique. Technique: Intravenous contrast was given. No oral contrast per request. Comparison: February 14, 2018. FINDINGS: Mild linear markings in the left lung base likely atelectasis. Liver and spleen appear unremarkable. No acute abnormality is seen at the pancreas. No evidence of adrenal mass. Kidneys demonstrate symmetric enhancement without evidence of a mass or hydronephrosis. 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 Dilatation of left ureteric segment appears similar as the previous exam. No evidence of obstructive calculus. No calcified gallstone. The aorta is nonaneurysmal. No significant lymph node enlargement. No evidence of acute colitis. No significant small bowel distention. The appendix appears normal. No significant ascites. No evidence of pneumoperitoneum. Urinary bladder appears unremarkable. Degenerative spondylosis. Mild degenerative changes of both hips. IMPRESSION: 1. No acute findings are identified in the abdomen or pelvis. 2. 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 Electronically signed by: Victorino Carmona MD (03/17/2019 9:37 AM) [facility]
== END 2019-03-17 10:14 | disposition home or self-care (01) ==
LOC: ER 05:33
DX: E10.65 Type 1 diabetes mellitus with hyperglycemia (principal); M54.5 Low back pain; M54.6 Pain in thoracic spine; R10.13 Epigastric pain; I10 Essential (primary) hypertension; R53.1 Weakness; E78.00 Pure hypercholesterolemia, unspecified; F17.220 Nicotine dependence, chewing tobacco, uncomplicated
CPT/HCPCS: 36415; 74177; 76700; 80053; 81001; 82010; 82553; 82962; 83605; 83690; 83735; 83930; 84484; 85025; 93005; 96372; 96374; 96375; 99285; J1815; J1885; J7030; Q9967

== ENCOUNTER 2019-05-27 23:04 | Inpatient (IN) | payer SELFPAY ==
[~2019-05-27] VITALS: Ht 190.5 cm; Wt 127.0 kg
[~2019-05-27 23:04] MED LIST changes: +CLON-77 PO; -CLON0.5T11 PO; +OMEP40CA45 PO; -OMEP40CA5 PO; +SIMV40TA18 PO; -SIMV40TA3 PO
--- NOTE | 2019-05-27 23:24 | PHYS DOC ---
Past Medical History Past Medical History: Diabetes-Type I, High Cholesterol, Hypertension Past Surgical History: Other Additional Past Surgical Histo: SHOULDER X 6 Alcohol Use: None Drug Use: None Adult General Chief Complaint Chief Complaint: BLOOD SUGAR PROBLEM HPI HPI 44-year-old insulin diabetic, hypertensive presents to emergency department complaints of elevated blood sugar. Patient describes nausea, decreased appetite. No fever no abdominal pain no vomiting. He does have some left flank pain. Patient states his blood sugar was elevated yesterday he suddenly discontinued insulin pump he's been initiating subcutaneous insulin at home however has had no luck with bringing his blood sugar down. Review of Systems Review of Systems Constitutional: Denies fever or chills [] Respiratory: Denies cough or shortness of breath [] Cardiovascular: No additional information not addressed in HPI [] GI: Denies abdominal pain, nausea, vomiting, bloody stools or diarrhea, left flank pain[] : Denies dysuria or hematuria [] Musculoskeletal: Denies back pain or joint pain [] Integument: Denies rash or skin lesions [] Neurologic: Denies headache, Endocrine: Frequent urination All other systems were reviewed and found to be within normal limits, except as documented in this note. Current Medications Current Medications Current Medications Medications (Trade) Dose Ordered Sig/Radha Start Time Stop Time Status Last Admin Dose Admin Dextrose 250 ml PRN Q15MIN PRN 05/28/19 00:00 Dextrose (Dextrose 50%-Water Syringe) 12.5 gm PRN Q15MIN PRN 05/28/19 00:00 Insulin Human Lispro (HumaLOG) 10 units ONCE ONCE 05/28/19 00:30 05/28/19 00:31 DC 05/28/19 00:27 10 UNITS Insulin Human Regular 150 unit/ Sodium Chloride 151.5 ml @ 0 mls/hr CONT PRN 05/28/19 00:00 05/28/19 00:20 12.9 MLS/HR Ondansetron HCl (Zofran) 4 mg PRN Q8HRS PRN 05/28/19 00:45 05/29/19 00:44 Sodium Chloride 1,000 ml @ 1,000 mls/hr 1X ONCE 05/27/19 23:30 05/28/19 00:29 DC 05/27/19 23:27 1,000 MLS/HR Allergies Allergies Allergies Coded Allergies Type Severity Reaction Last Updated Verified No Known Drug Allergies 02/17/16 No Physical Exam Physical Exam Constitutional: Well developed, well nourished, no acute distress, non-toxic appearance. [] HENT: Normocephalic, atraumatic, bilateral external ears normal, oropharynx moist, no oral exudates, nose normal. [] Eyes: PERRLA, EOMI Cardiovascular:Heart rate regular rhythm, no murmur [] Lungs & Thorax: Bilateral breath sounds clear to auscultation [] Abdomen: Bowel sounds normal, soft, no tenderness, no masses, no pulsatile masses. [] Skin: Warm, dry, no erythema, no rash. [] Back: left flank pain Extremities: No tenderness, no cyanosis, no edema. [] Neurologic: Alert and oriented X 3, no focal deficits noted. [] Psychologic: Affect normal, judgement normal, mood normal. [] Current Patient Data Vital Signs Vital Signs Date Time Temp Pulse Resp B/P (MAP) Pulse Ox O2 Delivery O2 Flow Rate FiO2 05/27/19 23:18 98.1 70 20 204/112 (142) 96 Room Air 98.1 Lab Values Laboratory Tests Test 05/27/19 23:25 05/27/19 23:35 05/28/19 00:33 White Blood Count 9.4 x10^3/uL (4.0-11.0) Red Blood Count 4.45 x10^6/uL (4.30-5.70) Hemoglobin 13.7 g/dL (13.0-17.5) Hematocrit 41.7 % (39.0-53.0) Mean Corpuscular Volume 94 fL (79-100) Mean Corpuscular Hemoglobin 31 pg (25-35) Mean Corpuscular Hemoglobin Concent 33 g/dL (31-37) Red Cell Distribution Width 13.6 % (11.5-14.5) Platelet Count 292 x10^3/uL (140-400) Neutrophils (%) (Auto) 68 % (31-73) Lymphocytes (%) (Auto) 25 % (24-48) Monocytes (%) (Auto) 6 % (0-9) Eosinophils (%) (Auto) 2 % (0-3) Basophils (%) (Auto) 0 % (0-3) Neutrophils # (Auto) 6.4 x10^3/uL (1.8-7.7) Lymphocytes # (Auto) 2.3 x10^3/uL (1.0-4.8) Monocytes # (Auto) 0.5 x10^3/uL (0.0-1.1) Eosinophils # (Auto) 0.1 x10^3/uL (0.0-0.7) Basophils # (Auto) 0.0 x10^3/uL (0.0-0.2) Sodium Level 131 mmol/L (136-145) L Potassium Level 4.8 mmol/L (3.5-5.1) Chloride Level 94 mmol/L (98-107) L Carbon Dioxide Level 22 mmol/L (21-32) Anion Gap 15 (6-14) H Blood Urea Nitrogen 20 mg/dL (8-26) Creatinine 1.3 mg/dL (0.7-1.3) Estimated GFR (Cockcroft-Gault) 60.0 BUN/Creatinine Ratio 15 (6-20) Glucose Level 704 mg/dL (70-99) *H Calcium Level 8.7 mg/dL (8.5-10.1) Total Bilirubin 0.5 mg/dL (0.2-1.0) Aspartate Amino Transferase (AST) 15 U/L (15-37) Alanine Aminotransferase (ALT) 36 U/L (16-63) Alkaline Phosphatase 174 U/L (46-116) H Total Protein 7.1 g/dL (6.4-8.2) Albumin 3.2 g/dL (3.4-5.0) L Albumin/Globulin Ratio 0.8 (1.0-1.7) L Acetone Level Sm pos (NEG) Urine Collection Type Unknown Urine Color Yellow Urine Clarity Clear Urine pH 6.0 Urine Specific [place] >=1.030 Urine Protein Negative mg/dL (NEG-TRACE) Urine Glucose (UA) >=1000 mg/dL (NEG) Urine Ketones (Stick) 40 mg/dL (NEG) Urine Blood Negative (NEG) Urine Nitrite Negative (NEG) Urine Bilirubin Negative (NEG) Urine Urobilinogen Dipstick 0.2 mg/dL (0.2 mg/dL) Urine Leukocyte Esterase Negative (NEG) Urine RBC 0 /HPF (0-2) Urine WBC 0 /HPF (0-4) Urine Squamous Epithelial Cells None /LPF Urine Bacteria 0 /HPF (0-FEW) POC Venous pH 7.38 (7.32-7.42) POC Venous pCO2 33 mmHg (41-51) L POC Venous pO2 116 mmHg (20-40) H Venous Blood HCO3 20 mmol/L (24-28) L POC Venous O2 Saturation (Radhames) 99 % POC FiO2 Pending Laboratory Tests 05/27/19 23:25 Laboratory Tests 05/27/19 23:25 EKG EKG [] Radiology/Procedures Radiology/Procedures [] Course & Med Decision Making Course & Med Decision Making Pertinent Labs and Imaging studies reviewed. (See chart for details) []44-year-old insulin diabetic, hypertensive presents to emergency department complaints of elevated blood sugar. Patient describes nausea, decreased appetite. No fever no abdominal pain no vomiting. He does have some left flank pain. Patient states his blood sugar was elevated yesterday he suddenly discontinued insulin pump he's been initiating subcutaneous insulin at home however has had no luck with bringing his blood sugar down. Labs reviewed, anion gap 15, small acetone. Urinalysis negative, CBC is unr emarkable. Blood sugars 704. Patient will be admitted to hospital for DKA. Discussed admission with Dr. Chowdhury. Insulin drip initiated in ER Dragon Disclaimer Dragon Disclaimer This electronic medical record was generated, in whole or in part, using a voice recognition dictation system. Departure Departure Impression: Primary Impression: DKA (diabetic ketoacidoses) Disposition: ADMITTED INPATIENT Admitting Physician: Kye Chowdhury Condition: STABLE Referrals: MILAN GUARDADO MD (PCP) Problem Qualifiers Primary Impression: DKA (diabetic ketoacidoses) Diabetes mellitus type: type 1 Diabetes mellitus complication detail: without coma Qualified Codes: E10.10 - Type 1 diabetes mellitus with ketoacidosis without coma NITISH ALDRIDGE MD May 27, 2019 23:24
[2019-05-27] MEDS ORDERED: IV NORMAL SALINE 1000ML BAG 1,000 ML IV ONE (23:30)
[2019-05-27 23:36] LABS: BASO % 0 % (0-3); EOS # 0.1 x10^3/uL (0.0-0.7); EOS % 2 % (0-3); HEMATOCRIT 41.7 % (39.0-53.0); HEMOGLOBIN 13.7 g/dL (13.0-17.5); LYMPH # 2.3 x10^3/uL (1.0-4.8); LYMPH % 25 % (24-48); MEAN CORPUSCULAR HEMOGLOBIN 31 pg (25-35); MEAN CORPUSCULAR HGB CONC 33 g/dL (31-37); MEAN CORPUSCULAR VOLUME 94 fL (79-100); MONO # 0.5 x10^3/uL (0.0-1.1); MONO % 6 % (0-9); NEUT # 6.4 x10^3/uL (1.8-7.7); NEUT % 68 % (31-73); PLATELET COUNT 292 x10^3/uL (140-400); RED BLOOD COUNT 4.45 x10^6/uL (4.30-5.70); RED CELL DISTRIBUTION WIDTH 13.6 % (11.5-14.5); WHITE BLOOD COUNT 9.4 x10^3/uL (4.0-11.0)
[2019-05-27 23:43] LABS: BILIRUBIN,URINE NEGATIVE (NEG); CLARITY,URINE CLEAR; COLOR,URINE YELLOW; NITRITE,URINE NEGATIVE (NEG); PROTEIN,URINE NEGATIVE (NEG-TRACE); UROBILINOGEN,URINE 0.2 mg/dL (0.2 mg/dL)
[2019-05-27 23:48] LABS: CALCIUM 8.7 mg/dL (8.5-10.1); CREATININE 1.3 mg/dL (0.7-1.3); POTASSIUM 4.8 mmol/L (3.5-5.1)
[2019-05-27 23:48] LABS: BACTERIA,URINE 0 /HPF (0-FEW); RBC,URINE 0 /HPF (0-2); WBC,URINE 0 /HPF (0-4)
[2019-05-27 23:50] LABS: ALBUMIN 3.2 g/dL (3.4-5.0); ALBUMIN/GLOBULIN RATIO 0.8 (1.0-1.7); TOTAL BILIRUBIN 0.5 mg/dL (0.2-1.0); TOTAL PROTEIN 7.1 g/dL (6.4-8.2)
[2019-05-28] MEDS ORDERED: IV DEXTROSE 5% 250 ML BAG. IV PRN
[2019-05-28] MEDS ORDERED: DEXTROSE 50% 25 GM / 50ML DISP.SYRIN. IV PRN
[2019-05-28] MEDS ORDERED: INSULIN LISPRO 300 UNITS/3 ML VIAL. SQ SCH (00:15)
[2019-05-28] MEDS ORDERED: INSULIN LISPRO 300 UNITS/3 ML VIAL. SQ ONE ×3 (00:30→14:45)
[2019-05-28] MEDS ORDERED: ONDANSETRON PF 4 MG/2 ML VIAL. IV PRN (00:45)
[2019-05-28 00:53] LABS: ISTAT PCO2 VEN 33 mmHg (41-51); ISTAT PH VEN 7.38 (7.32-7.42); ISTAT PO2 VEN 116 mmHg (20-40)
[2019-05-28 00:54] LABS: ISTAT HCO3 VEN 20 mmol/L (24-28); ISTAT SAT O2 VEN 99 %; ISTAT TCO2 VEN 21 mmol/L (21-32)
[2019-05-28 00:57] LABS: FIO2 VENOUS ISTAT 21
[2019-05-28] MEDS ORDERED: hydrALAZINE 20 MG/ML VIAL. IVP ONE (01:15)
--- NOTE | 2019-05-28 01:30 | NUR ---
Admit from ED with DX DKA via WC. Steady gait ambulating in room. A/O x 4. Pleasant. Cooperative. VSS. Skin WD & P. Orientated to room and call light. Reviewed POC. Verbalized understanding. Fluids and Insulin drip infusing per protocol.
[2019-05-28 01:50] VITALS: BP 181/99
--- NOTE | 2019-05-28 02:00 | NUR ---
Patient accidently pulled out 20# IV left AC using the urinal. Placed new 20# in left hand. One attempt. Patient tolerated well. IVF infusing per protocol.
[2019-05-28 02:27] LABS: CALCIUM 8.9 mg/dL (8.5-10.1); CREATININE 1.6 mg/dL (0.7-1.3); GFR 47.2; MAGNESIUM 2.2 mg/dL (1.8-2.4); PHOSPHORUS 1.7 mg/dL (2.6-4.7); POTASSIUM 3.8 mmol/L (3.5-5.1)
[2019-05-28] MEDS ORDERED: INSULIN REGULAR VIAL 150 UNIT in 0.9 % SODIUM CHLORIDE 150ML 150 ML IV PRN ×3 (02:30)
[2019-05-28] MEDS ORDERED: IV NORMAL SALINE 1000ML BAG 1,000 ML IV SCH (02:30)
[2019-05-28] MEDS ORDERED: POTASSIUM CHLORIDE 10MEQ 100 ML IV PRN ×3 (02:30)
[2019-05-28] MEDS ORDERED: IV DEXTROSE 5 %-0.45 % NACL 1,000 ML IV SCH (02:30)
[2019-05-28] MEDS ORDERED: Humalog (02:54)
[2019-05-28 03:00] VITALS: BP 160/95
[2019-05-28] MEDS: POTASSIUM CHLORIDE 10MEQ 100 ML IV SCH ×4 (03:26→06:50)
--- NOTE | 2019-05-28 04:19 | NUR ---
Patient has history of anxiety. Patient admits to feeling slightly restless at this time. Paged Dr Chowdhury in attempt to obtain order for Clonazepam as prescribed on his home med list. Waiting for call back.
[2019-05-28 06:36] LABS: MAGNESIUM 2.1 mg/dL (1.8-2.4)
[2019-05-28 07:00] VITALS: BP 178/106
[2019-05-28 07:27] LABS: BASO # 0.1 x10^3/uL (0.0-0.2); BASO % 1 % (0-3); EOS # 0.3 x10^3/uL (0.0-0.7); EOS % 4 % (0-3); HEMATOCRIT 39.9 % (39.0-53.0); HEMOGLOBIN 13.3 g/dL (13.0-17.5); LYMPH % 40 % (24-48); MEAN CORPUSCULAR HEMOGLOBIN 30 pg (25-35); MEAN CORPUSCULAR HGB CONC 33 g/dL (31-37); MEAN CORPUSCULAR VOLUME 90 fL (79-100); MONO # 0.6 x10^3/uL (0.0-1.1); MONO % 8 % (0-9); NEUT # 3.6 x10^3/uL (1.8-7.7); NEUT % 47 % (31-73); PLATELET COUNT 316 x10^3/uL (140-400); RED BLOOD COUNT 4.42 x10^6/uL (4.30-5.70); RED CELL DISTRIBUTION WIDTH 13.5 % (11.5-14.5); WHITE BLOOD COUNT 7.6 x10^3/uL (4.0-11.0)
[2019-05-28 08:17] LABS: ALBUMIN 2.9 g/dL (3.4-5.0); ALBUMIN/GLOBULIN RATIO 0.8 (1.0-1.7); CALCIUM 8.8 mg/dL (8.5-10.1); GFR 81.2; POTASSIUM 4.2 mmol/L (3.5-5.1); TOTAL BILIRUBIN 0.2 mg/dL (0.2-1.0); TOTAL PROTEIN 6.6 g/dL (6.4-8.2)
[2019-05-28] MEDS ORDERED: FLU VAX QS 2019-20 (36MOS+)/PF 0.5 ML SYRINGE. VAX IM ONE (08:30)
[2019-05-28] MEDS ORDERED: clonazePAM 0.5 MG TABLET PO PRN (09:15)
--- NOTE | 2019-05-28 09:18 | PDOC ---
Provider Note Provider Note [id number] MACKENZIE JACOBSEN MD May 28, 2019 09:18
[2019-05-28] MEDS ORDERED: ZOLPIDEM 5 MG TABLET. PO PRN (09:30)
[2019-05-28] MEDS ORDERED: LOSARTAN POTASSIUM 50 MG TABLET. PO SCH (10:00)
[2019-05-28] MEDS ORDERED: ASPIRIN CHEWABLE 81 MG TABLET. PO SCH (10:00)
[2019-05-28] MEDS: GABAPENTIN 400 MG CAPSULE. PO SCH ×2 (10:02→14:38)
--- NOTE | 2019-05-28 10:13 | SSS ---
ADMIT DATE: 05/28/2019 23-HOUR SUMMARY HOSPITAL SUMMARY: A 44-year-old white male patient with type 1 diabetic, on insulin pump, monitored through [facility], apparently had been stressed out recently and not been handling this pump correctly. He came in DKA with hyperglycemia of 700, only mild acidosis and rapidly improved with IV insulin and IV fluids. His labs are much better this morning, is feeling better and comfortable to be followed as an outpatient. FINAL DIAGNOSES: 1. Diabetic ketoacidosis, resolved. 2. Type 1 insulin-dependent diabetes, on insulin pump. OPERATIONS, PROCEDURES, COMPLICATIONS, CONSULTATIONS: None. DISPOSITION: He will continue all home meds, all home insulin pump settings and follow up with Dr. Roth and his children's service worker as scheduled. Diabetic diet, good fluid intake. PROGNOSIS: Good. MACKENZIE JACOBSEN MD DR: MIKE/nts JOB#: [id number] / [id number]
[2019-05-28 11:00] VITALS: BP 185/91
--- NOTE | 2019-05-28 12:33 | NUR ---
SS following for discharge planning. SS reviewed pt chart. Pt is from home and is currently on room air. Pt is self pay pt. [facility] following for self pay status. Pt has discharge order on the chart for home with self care. SS will continue to follow for discharge planning.
[2019-05-28] MEDS ORDERED: amLODIPine BESYLATE 5 MG TABLET PO ONE (13:00)
[2019-05-28 15:00] VITALS: BP 160/92
--- NOTE | 2019-05-28 16:24 | NUR ---
Discharge Note: WILIAM NAVARRO [facility] Discharge instructions and discharge home medications reviewed with Patient and a copy given. All questions have been answered and understanding verbalized. The following instructions and handouts were given: Hyperglycemia Discontinued IV line Patient discharged to home with self care via ambulation
[2019-05-28] MEDS ORDERED: SIMVASTATIN 40 MG TABLET. PO SCH (21:00)
== END 2019-05-28 16:34 | disposition home or self-care (01) | DRG 639 ==
LOC: ER 23:04 → 2 SOUTH 05-28 00:44
PROVIDERS: ADMIT Family Medicine; ATTEND Family Medicine
DX: E10.10 Type 1 diabetes mellitus with ketoacidosis without coma (principal); E78.00 Pure hypercholesterolemia, unspecified; I10 Essential (primary) hypertension; Z96.41 Presence of insulin pump (external) (internal); Z79.4 Long term (current) use of insulin
CPT/HCPCS: 36415; 80048; 80053; 81001; 82010; 82803; 82962; 83735; 84100; 85025; 90471; 90686; 96365; J0360; J1815; J3480; J7030; 99285-25; G0378

== ENCOUNTER 2019-06-26 18:21 | Emergency (ER) | payer SELFPAY ==
[~2019-06-26] VITALS: Ht 182.9 cm; Wt 127.0 kg
[~2019-06-26 18:21] MED LIST changes: +Humalog
[2019-06-26] MEDS ORDERED: IV NORMAL SALINE 1000ML BAG 1,000 ML IV SCH (19:04)
[2019-06-26] MEDS ORDERED: cloNIDine HCL 0.1 MG TABLET PO ONE (19:15)
--- NOTE | 2019-06-26 19:22 | PHYS DOC ---
Past Medical History Past Medical History: Diabetes-Type I, High Cholesterol, Hypertension Past Surgical History: Other Additional Past Surgical Histo: SHOULDER X 6, r knee meniscus shaved Alcohol Use: Rarely Drug Use: None Adult General Chief Complaint Chief Complaint: MULTIPLE COMPLAINTS HPI HPI 44-year-old male presents to the emergency department multiple complaints. Patient is a known insulin diabetic with pump. States his blood sugar is elevated at 480 prior to coming in. He is now his blood pressure medications for approximately 1 week secondary to supply issues. Patient's blood pressure is 223/100. He describes headache and nausea. Symptoms worsened yesterday. Patient denies any abdominal pain. He states he's had difficulty with urination. He does describe some intermittent chest pain. Review of Systems Review of Systems Constitutional: Denies fever or chills [] Eyes: Denies change in visual acuity, redness, or eye pain [] HENT: Denies nasal congestion or sore throat [] Respiratory: Denies cough or shortness of breath [] Cardiovascular: No additional information not addressed in HPI [] GI: Denies abdominal pain, nausea, vomiting, bloody stools or diarrhea [] : Denies dysuria or hematuria [] Musculoskeletal: Denies back pain or joint pain [] Neurologic: + headache, no focal weakness or sensory changes [] Endocrine: Denies polyuria or polydipsia, elevated BS [] All other systems were reviewed and found to be within normal limits, except as documented in this note. Current Medications Current Medications Current Medications Medications (Trade) Dose Ordered Sig/Radha Start Time Stop Time Status Last Admin Dose Admin Clonidine HCl (Catapres) 0.2 mg 1X ONCE 06/26/19 19:15 06/26/19 19:16 DC 06/26/19 19:38 0.2 MG Info (CONTRAST GIVEN -- Rx MONITORING) 1 each PRN DAILY PRN 06/26/19 21:45 06/28/19 21:44 Iohexol (Omnipaque 300 Mg/ml) 75 ml 1X ONCE 06/26/19 21:45 06/26/19 21:46 DC 06/26/19 21:50 75 ML Ketorolac Tromethamine (Toradol 30mg Vial) 30 mg 1X ONCE 06/26/19 21:00 06/26/19 21:02 DC 06/26/19 21:09 30 MG Metoclopramide HCl (Reglan Vial) 10 mg 1X ONCE 06/26/19 21:00 06/26/19 21:02 DC 06/26/19 21:08 10 MG Metoprolol Tartrate (Lopressor Vial) 5 mg 1X ONCE 06/26/19 21:00 06/26/19 21:02 DC 06/26/19 21:09 5 MG Morphine Sulfate (Morphine Sulfate) 2 mg PRN Q15MIN PRN 06/26/19 19:15 06/27/19 19:14 06/26/19 20:30 2 MG Sodium Chloride 1,000 ml @ 1,000 mls/hr Q1H 06/26/19 19:04 06/26/19 20:03 DC 06/26/19 19:38 1,000 MLS/HR Allergies Allergies Allergies Coded Allergies Type Severity Reaction Last Updated Verified No Known Drug Allergies 02/17/16 No Physical Exam Physical Exam Constitutional: Well developed, well nourished, no acute distress, non-toxic appearance. [] HENT: Normocephalic, atraumatic, bilateral external ears normal, oropharynx moist, no oral exudates, nose normal. [] Eyes: PERRLA, EOMI, conjunctiva normal, no discharge. [] Neck: Normal range of motion, no tenderness, supple, no stridor. [] Cardiovascular: tachycardia, no murmur [] Lungs & Thorax: Bilateral breath sounds clear to auscultation [] Abdomen: Bowel sounds normal, soft, no tenderness, no masses, no pulsatile masses. [] Skin: Warm, dry, no erythema, no rash. [] Back: No tenderness, no CVA tenderness. [] Extremities: No tenderness, no edema. [] Neurologic: Alert and oriented X 3, no focal deficits noted. [] Psychologic: Affect normal, judgement normal, mood normal. [] Current Patient Data Vital Signs Vital Signs Date Time Temp Pulse Resp B/P (MAP) Pulse Ox O2 Delivery O2 Flow Rate FiO2 06/26/19 22:23 75 17 142/95 (111) 95 Room Air 06/26/19 18:50 99.0 99.0 Lab Values Laboratory Tests Test 06/26/19 19:04 06/26/19 19:18 06/26/19 19:30 06/26/19 20:05 Glucose (Fingerstick) 354 mg/dL (70-99) H White Blood Count 10.1 x10^3/uL (4.0-11.0) Red Blood Count 4.60 x10^6/uL (4.30-5.70) Hemoglobin 14.1 g/dL (13.0-17.5) Hematocrit 41.8 % (39.0-53.0) Mean Corpuscular Volume 91 fL (79-100) Mean Corpuscular Hemoglobin 31 pg (25-35) Mean Corpuscular Hemoglobin Concent 34 g/dL (31-37) Red Cell Distribution Width 14.7 % (11.5-14.5) H Platelet Count 273 x10^3/uL (140-400) Neutrophils (%) (Auto) 70 % (31-73) Lymphocytes (%) (Auto) 22 % (24-48) L Monocytes (%) (Auto) 7 % (0-9) Eosinophils (%) (Auto) 1 % (0-3) Basophils (%) (Auto) 1 % (0-3) Neutrophils # (Auto) 7.0 x10^3/uL (1.8-7.7) Lymphocytes # (Auto) 2.2 x10^3/uL (1.0-4.8) Monocytes # (Auto) 0.7 x10^3/uL (0.0-1.1) Eosinophils # (Auto) 0.1 x10^3/uL (0.0-0.7) Basophils # (Auto) 0.1 x10^3/uL (0.0-0.2) Sodium Level 135 mmol/L (136-145) L Potassium Level 3.5 mmol/L (3.5-5.1) Chloride Level 100 mmol/L (98-107) Carbon Dioxide Level 24 mmol/L (21-32) Anion Gap 11 (6-14) Blood Urea Nitrogen 9 mg/dL (8-26) Creatinine 1.0 mg/dL (0.7-1.3) Estimated GFR (Cockcroft-Gault) 81.2 BUN/Creatinine Ratio 9 (6-20) Glucose Level 332 mg/dL (70-99) H Calcium Level 8.4 mg/dL (8.5-10.1) L Total Bilirubin 0.6 mg/dL (0.2-1.0) Aspartate Amino Transferase (AST) 18 U/L (15-37) Alanine Aminotransferase (ALT) 26 U/L (16-63) Alkaline Phosphatase 146 U/L (46-116) H Total Protein 6.8 g/dL (6.4-8.2) Albumin 3.2 g/dL (3.4-5.0) L Albumin/Globulin Ratio 0.9 (1.0-1.7) L Lipase 32 U/L (73-393) L Acetone Level Neg (NEG) Urine Collection Type Unknown Urine Color Yellow Urine Clarity Clear Urine pH 6.0 Urine Specific [place] 1.015 Urine Protein Negative mg/dL (NEG-TRACE) Urine Glucose (UA) >=1000 mg/dL (NEG) Urine Ketones (Stick) 15 mg/dL (NEG) Urine Blood Negative (NEG) Urine Nitrite Negative (NEG) Urine Bilirubin Negative (NEG) Urine Urobilinogen Dipstick 0.2 mg/dL (0.2 mg/dL) Urine Leukocyte Esterase Negative (NEG) Urine RBC Occ /HPF (0-2) Urine WBC 0 /HPF (0-4) Urine Squamous Epithelial Cells Few /LPF Urine Bacteria 0 /HPF (0-FEW) POC Venous pH 7.42 (7.32-7.42) POC Venous pCO2 37 mmHg (41-51) L POC Venous pO2 141 mmHg (20-40) H Venous Blood HCO3 24 mmol/L (24-28) POC Venous O2 Saturation (Radhames) 99 % POC FiO2 21.0 Laboratory Tests 06/26/19 19:18 Laboratory Tests 06/26/19 19:18 EKG EKG EKG reveals sinus tachycardia, nonurgent, left axis deviation appreciated, non- ST elevation NH, interpretation time 191[] Radiology/Procedures Radiology/Procedures [facility] [address] [place] [address] IMAGING REPORT Signed PATIENT: WILIAM NAVARRO ACCOUNT: [id number] : 1975 LOCATION: ER AGE: 44 SEX: M EXAM STATUS: REG ER ORD. PHYSICIAN: NITISH ALDRIDGE MD REASON: right abdominal pain, radiates to back, negative UAD PROCEDURE: CT ABD PELV W/ IV CONTRST ONLY Exam: CT abdomen and pelvis with contrast INDICATION: Right abdominal pain TECHNIQUE: Sequential axial images through the abdomen and pelvis obtained following the administration of 75 mL of Omni 300 IV contrast. Sagittal and coronal reformatted images were reconstructed from the axial data and reviewed. Comparisons: 03/17/2019 FINDINGS: Heart size is normal. No pericardial effusion. Visualized lung bases are clear. No pleural effusion. Liver, spleen, pancreas, gallbladder and adrenals are unremarkable. Kidneys demonstrate symmetric enhancement. No perinephric inflammation or hydronephrosis. No renal or ureteral calculi are identified. It renal collecting system again noted bilaterally. Bladder is distended and appears thin-walled. Prostate is not enlarged. There is mild bowel wall thickening and submucosal fat deposition throughout the colon. Appendix is normal. No free intra-abdominal air or fluid. Abdominal aorta has a normal course and caliber. Abdominal vasculature is patent. No enlarged intra-abdominal lymph nodes are identified. No suspicious osseous lesions or acute fractures. IMPRESSION: 1. Submucosal fat deposition throughout the colon, may be sequela of repeated inflammation. Correlate for inflammatory bowel disease. 2. No acute processes identified within the abdomen or pelvis. Normal appendix. Exposure: One or more of the following in the visualized dose reduction techniques were utilized for this examination: 1. Automated exposure control 2. Adjustment of the MA and/or KV according to patient size 3. Use of iterative of reconstructive technique Electronically signed by: Kaelyn Armendariz MD (06/26/2019 10:42 PM) [facility] DICTATED and SIGNED BY: KAELYN ARMENDARIZ MD DATE: 06/26/19 224 [] Course & Med Decision Making Course & Med Decision Making Pertinent Labs and Imaging studies reviewed. (See chart for details) []44-year-old male presents to the emergency department multiple complaints. Patient is a known insulin diabetic with pump. States his blood sugar is elevated at 480 prior to coming in. He is now his blood pressure medications for approximately 1 week secondary to supply issues. Patient's blood pressure is 223/100. He describes headache and nausea. Symptoms worsened yesterday. Patient denies any abdominal pain. He states he's had difficulty with urination. He does describe some intermittent chest pain. clonidine 0.2mg po x 1 IVF 1 liter Toradol 30mg IV, Lopressor 5mg BP improved Discussed with patient - plan HCTZ 25mg daily until combo pill available CT negative for acute process Discussed dc home Dragon Disclaimer Dragon Disclaimer This electronic medical record was generated, in whole or in part, using a voice recognition dictation system. Departure Departure Impression: Primary Impression: Hyperglycemia Additional Impression: Hypertensive urgency Disposition: HOME, SELF-CARE Condition: IMPROVED Referrals: MILAN GUARDADO MD (PCP) Patient Instructions: Hyperglycemia, Uate-en-Tbmb, Hypertension Additional Instructions: Recommend follow up with PCP 3 - 5 days Return to the ER with worsening symptoms, intractable pain, fever, altered mental status Tylenol/Motrin as needed for pain Take BP medications as prescribed Scripts Hydrochlorothiazide (HYDROCHLOROTHIAZIDE TABLET ) 25 Mg Tablet 25 MG PO DAILY for DIURETIC for 30 Days, #30 TAB 0 Refills Prov: NITISH ALDRIDGE MD 06/26/19 Problem Qualifiers NITISH ALDRIDGE MD Jun 26, 2019 19:22
[2019-06-26 19:32] LABS: BASO # 0.1 x10^3/uL (0.0-0.2); BASO % 1 % (0-3); EOS # 0.1 x10^3/uL (0.0-0.7); EOS % 1 % (0-3); HEMATOCRIT 41.8 % (39.0-53.0); HEMOGLOBIN 14.1 g/dL (13.0-17.5); LYMPH # 2.2 x10^3/uL (1.0-4.8); LYMPH % 22 % (24-48); MEAN CORPUSCULAR HEMOGLOBIN 31 pg (25-35); MEAN CORPUSCULAR HGB CONC 34 g/dL (31-37); MEAN CORPUSCULAR VOLUME 91 fL (79-100); MONO # 0.7 x10^3/uL (0.0-1.1); MONO % 7 % (0-9); NEUT % 70 % (31-73); PLATELET COUNT 273 x10^3/uL (140-400); RED CELL DISTRIBUTION WIDTH 14.7 % (11.5-14.5); WHITE BLOOD COUNT 10.1 x10^3/uL (4.0-11.0)
[2019-06-26] MEDS: MORPHINE SULFATE 2 MG/ML VIAL. IV/SQ PRN ×2 (19:39→20:30)
[2019-06-26 19:43] LABS: CALCIUM 8.4 mg/dL (8.5-10.1); GFR 81.2; POTASSIUM 3.5 mmol/L (3.5-5.1)
[2019-06-26 19:44] LABS: BILIRUBIN,URINE NEGATIVE (NEG); CLARITY,URINE CLEAR; COLOR,URINE YELLOW; NITRITE,URINE NEGATIVE (NEG); PROTEIN,URINE NEGATIVE (NEG-TRACE); UROBILINOGEN,URINE 0.2 mg/dL (0.2 mg/dL)
[2019-06-26 19:49] LABS: BACTERIA,URINE 0 /HPF (0-FEW); RBC,URINE OCC /HPF (0-2); SQUAMOUS EPITHELIAL CELL,UR FEW /LPF; WBC,URINE 0 /HPF (0-4)
[2019-06-26 19:49] LABS: ALBUMIN 3.2 g/dL (3.4-5.0); ALBUMIN/GLOBULIN RATIO 0.9 (1.0-1.7); TOTAL BILIRUBIN 0.6 mg/dL (0.2-1.0); TOTAL PROTEIN 6.8 g/dL (6.4-8.2)
[2019-06-26 20:09] LABS: ISTAT BE VENOUS -1 mmol/L (0-3); ISTAT HCO3 VEN 24 mmol/L (24-28); ISTAT PCO2 VEN 37 mmHg (41-51); ISTAT PH VEN 7.42 (7.32-7.42); ISTAT PO2 VEN 141 mmHg (20-40); ISTAT SAT O2 VEN 99 %; ISTAT TCO2 VEN 25 mmol/L (21-32)
[2019-06-26] MEDS ORDERED: METOCLOPRAMIDE HCL 10 MG/2 ML VIAL. IVP ONE (21:00)
[2019-06-26] MEDS ORDERED: METOPROLOL TARTRATE 5 MG/5 ML VIAL. IVP ONE (21:00)
[2019-06-26] MEDS ORDERED: KETOROLAC 30 MG/ML VIAL. IV ONE (21:00)
[2019-06-26] MEDS ORDERED: CONTRAST GIVEN. MC PRN (21:45)
[2019-06-26] MEDS ORDERED: IOHEXOL 300 MG/ML 100ML VIAL. IV ONE (21:45)
[2019-06-26 22:23] VITALS: BP 142/95
--- NOTE | 2019-06-26 22:45 | RAD ---
Exam: CT abdomen and pelvis with contrast INDICATION: Right abdominal pain TECHNIQUE: Sequential axial images through the abdomen and pelvis obtained following the administration of 75 mL of Omni 300 IV contrast. Sagittal and coronal reformatted images were reconstructed from the axial data and reviewed. Comparisons: 03/17/2019 FINDINGS: Heart size is normal. No pericardial effusion. Visualized lung bases are clear. No pleural effusion. Liver, spleen, pancreas, gallbladder and adrenals are unremarkable. Kidneys demonstrate symmetric enhancement. No perinephric inflammation or hydronephrosis. No renal or ureteral calculi are identified. It renal collecting system again noted bilaterally. Bladder is distended and appears thin-walled. Prostate is not enlarged. There is mild bowel wall thickening and submucosal fat deposition throughout the colon. Appendix is normal. No free intra-abdominal air or fluid. Abdominal aorta has a normal course and caliber. Abdominal vasculature is patent. No enlarged intra-abdominal lymph nodes are identified. No suspicious osseous lesions or acute fractures. IMPRESSION: 1. Submucosal fat deposition throughout the colon, may be sequela of repeated inflammation. Correlate for inflammatory bowel disease. 2. No acute processes identified within the abdomen or pelvis. Normal appendix. Exposure: One or more of the following in the visualized dose reduction techniques were utilized for this examination: 1. Automated exposure control 2. Adjustment of the MA and/or KV according to patient size 3. Use of iterative of reconstructive technique Electronically signed by: Kaelyn Wilson MD (06/26/2019 10:42 PM) [facility]
[2019-06-26] MEDS ORDERED: HYDR-2145 PO (22:53)
[2019-06-27] MEDS ORDERED: IOHEXOL 300 MG/ML 100ML VIAL. ONE (02:05)
--- NOTE | 2019-06-29 06:15 | EKG ---
[facility] [address] [place] [address] Test Date: 2019-06-26 Test Time: 19:30:37 Pat Name: WILIAM NAVARRO Department: Room: Gender: M [employer] Consultant: : 1975 Requested By: NITISH ALDRIDGE Order Number: [id number] Reading MD: Measurements Intervals [place] Rate: 101 P: 30 TX: 166 QRS: -41 QRSD: 96 T: 2 QT: 372 QTc: 483 Interpretive Statements SINUS TACHYCARDIA ABNORMAL LEFT AXIS DEVIATION S1,S2,S3 PATTERN LEFT ANTERIOR FASCICULAR BLOCK QRS(T) CONTOUR ABNORMALITY CONSIDER ANTEROSEPTAL MYOCARDIAL DAMAGE CONSIDER INFERIOR MYOCARDIAL DAMAGE ABNORMAL ECG RI6.01 No previous ECG available for comparison
== END 2019-06-26 23:10 | disposition home or self-care (01) ==
LOC: ER 18:21
DX: E10.65 Type 1 diabetes mellitus with hyperglycemia (principal); I16.0 Hypertensive urgency; E78.00 Pure hypercholesterolemia, unspecified; I10 Essential (primary) hypertension
CPT/HCPCS: 36415; 74177; 80053; 81001; 82010; 82803; 82962; 83690; 85025; 93005; 96374; 96375; 96376; 99285; J1885; J2270; J2765; J3490; J7030; Q9967

== ENCOUNTER 2019-06-29 21:10 | Inpatient (IN) | payer SELFPAY ==
[~2019-06-29] VITALS: Ht 190.5 cm; Wt 128.4 kg
[~2019-06-29 21:10] MED LIST changes: +HYDR-2145 PO
[2019-06-29] MEDS ORDERED: hydrALAZINE 20 MG/ML VIAL. IVP ONE (22:00)
[2019-06-29] MEDS ORDERED: fentaNYL PF VIAL 100 MCG/2 ML VIAL IVP ONE (22:00)
[2019-06-29 22:02] LABS: BARBITURATES NEG (NEG); BENZODIAZEPINES NEG (NEG); BILIRUBIN,URINE NEGATIVE (NEG); CANNABINOIDS NEG (NEG); CLARITY,URINE CLEAR; COCAINE NEG (NEG); COLOR,URINE YELLOW; METHADONE NEG (NEG); NITRITE,URINE NEGATIVE (NEG); OPIATES NEG (NEG); PHENCYCLIDINE NEG (NEG); PROTEIN,URINE NEGATIVE (NEG-TRACE); UROBILINOGEN,URINE 0.2 mg/dL (0.2 mg/dL)
[2019-06-29 22:04] LABS: AMPHETAMINE/METHAMPHETAMINE NEG (NEG)
[2019-06-29 22:10] LABS: BASO # 0.1 x10^3/uL (0.0-0.2); BASO % 1 % (0-3); EOS # 0.2 x10^3/uL (0.0-0.7); EOS % 3 % (0-3); HEMATOCRIT 47.5 % (39.0-53.0); HEMOGLOBIN 16.3 g/dL (13.0-17.5); LYMPH # 2.8 x10^3/uL (1.0-4.8); LYMPH % 39 % (24-48); MEAN CORPUSCULAR HEMOGLOBIN 31 pg (25-35); MEAN CORPUSCULAR HGB CONC 34 g/dL (31-37); MEAN CORPUSCULAR VOLUME 91 fL (79-100); MONO # 0.5 x10^3/uL (0.0-1.1); MONO % 7 % (0-9); NEUT # 3.6 x10^3/uL (1.8-7.7); NEUT % 50 % (31-73); PLATELET COUNT 303 x10^3/uL (140-400); RED BLOOD COUNT 5.24 x10^6/uL (4.30-5.70); RED CELL DISTRIBUTION WIDTH 14.4 % (11.5-14.5); WHITE BLOOD COUNT 7.1 x10^3/uL (4.0-11.0)
[2019-06-29 22:11] LABS: BACTERIA,URINE 0 /HPF (0-FEW); RBC,URINE 0 /HPF (0-2); SQUAMOUS EPITHELIAL CELL,UR OCC /LPF; WBC,URINE OCC /HPF (0-4)
[2019-06-29 22:19] LABS: CALCIUM 9.6 mg/dL (8.5-10.1); CREATININE 1.1 mg/dL (0.7-1.3); GFR 72.7; POTASSIUM 4.1 mmol/L (3.5-5.1)
[2019-06-29 22:20] LABS: PROTHROMBIN TIME PATIENT 11.9 SEC (11.7-14.0)
[2019-06-29 22:25] LABS: ALBUMIN 3.6 g/dL (3.4-5.0); MAGNESIUM 1.9 mg/dL (1.8-2.4); TOTAL BILIRUBIN 0.7 mg/dL (0.2-1.0); TOTAL PROTEIN 7.3 g/dL (6.4-8.2)
--- NOTE | 2019-06-29 22:32 | RAD ---
CT head without contrast dated 06/29/2019. Comparison made to 05/14/2015. Clinical data indication: High blood pressure. TECHNIQUE: Contiguous axial imaging the head was performed from skull base to vertex. No contrast administered. One or more of the following individualized dose reduction techniques were utilized for this examination: 1. Automated exposure control 2. Adjustment of the mA and/or kV according to patient size 3. Use of iterative reconstruction technique. FINDINGS: Ventricles and sulci are within normal limits for age. No midline shift or mass effect. Brain parenchyma is of normal attenuation. No hemorrhage or extra-axial collection. Posterior fossa and brainstem unremarkable. Mild to moderate mucosal thickening of the bilateral ethmoid air cells. There is buckling of the medial wall of the left orbit consistent with old medial orbital blowout fracture, unchanged prior study. Mastoid air cells are clear. IMPRESSION: 1. No evidence of acute intracranial abnormality. 2. Mild sinus disease. Electronically signed by: Victorino Brown MD (06/29/2019 10:29 PM) [facility]
--- NOTE | 2019-06-29 22:38 | RAD ---
Single view chest dated 06/29/2019: Comparison made to 11/15/2017. Clinical Indication: Headache and hypertension. Findings: Single upright portable exam of the chest was performed. Heart size and mediastinal contours are within normal limits given technique. The lungs are clear without evidence of focal consolidation. Vascular interstitium is within normal limits. Minimal linear opacity at the left lung base, likely scar or atelectasis. Impression:: No acute radiographic abnormality. Electronically signed by: Victorino Brown MD (06/29/2019 10:34 PM) [facility]
[2019-06-29] MEDS ORDERED: HYDROmorphone 2 MG/ML VIAL IV ONE (23:00)
--- NOTE | 2019-06-29 23:25 | PHYS DOC ---
Past Medical History Past Medical History: No Pertinent History, Diabetes-Type I, High Cholesterol, Hypertension Past Surgical History: Other Additional Past Surgical Histo: SHOULDER X 6, r knee meniscus shaved Additional Information: pt states he chew tobacco Alcohol Use: Rarely Drug Use: None Adult General Chief Complaint Chief Complaint: HYPERTENSION HPI HPI Patient is a 44 year old male with history of diabetes mellitus on insulin pump and hypertension who presents with complaining of high blood pressure and headache. Patient states his blood pressure medication was changed to hydralazine 5 days ago because of his usual blood pressure was not available but his blood pressure is elevated on the time and patient feels headache in frontal and occipital area associated with blurred vision and nausea. Patient denies chest pain, focal neuro deficit, fever and chills, neck pain, vomiting, diarrhea, urinary symptom. Patient rated his headache 10 over 10 and denied taking pain medication at home. Patient had blood pressure of 202/100 at arrival to ER Review of Systems Review of Systems Constitutional: Denies fever or chills [] Eyes: Denies change in visual acuity, redness, or eye pain [] HENT: Denies nasal congestion or sore throat [] Respiratory: Denies cough or shortness of breath [] Cardiovascular: No additional information not addressed in HPI [] GI: Denies abdominal pain, nausea, vomiting, bloody stools or diarrhea [] : Denies dysuria or hematuria [] Musculoskeletal: Denies back pain or joint pain [] Integument: Denies rash or skin lesions [] Neurologic: Denies focal weakness or sensory changes, reports headache [] Endocrine: Denies polyuria or polydipsia [] All other systems were reviewed and found to be within normal limits, except as documented in this note. Current Medications Current Medications Current Medications Medications (Trade) Dose Ordered Sig/Radha Start Time Stop Time Status Last Admin Dose Admin Fentanyl Citrate (Fentanyl 2ml Vial) 50 mcg 1X ONCE 06/29/19 22:00 06/29/19 22:01 DC 06/29/19 22:10 50 MCG Hydralazine HCl (Apresoline Inj) 10 mg 1X ONCE 06/29/19 22:00 06/29/19 22:01 DC 06/29/19 22:06 10 MG Hydromorphone HCl (Dilaudid) 1 mg 1X ONCE 06/29/19 23:00 06/29/19 23:01 DC 06/29/19 22:55 1 MG Allergies Allergies Allergies Coded Allergies Type Severity Reaction Last Updated Verified No Known Drug Allergies 02/17/16 No Physical Exam Physical Exam Constitutional: Well developed, well nourished, mild distress, non-toxic appearance. [] HENT: Normocephalic, atraumatic, bilateral external ears normal, oropharynx moist, no oral exudates, nose normal. [] Eyes: PERRLA, EOMI, conjunctiva normal, no discharge. [] Neck: Normal range of motion, no tenderness, supple, no stridor. [] Cardiovascular:Heart rate regular rhythm, no murmur [] Lungs & Thorax: Bilateral breath sounds clear to auscultation [] Abdomen: Bowel sounds normal, soft, no tenderness, no masses, no pulsatile masses. [] Skin: Warm, dry, no erythema, no rash. [] Back: No tenderness, no CVA tenderness. [] Extremities: No tenderness, no cyanosis, no clubbing, ROM intact, no edema. [] Neurologic: Alert and oriented X 3, normal motor function, normal sensory function, no focal deficits noted. [] Psychologic: Affect normal, judgement normal, mood normal. [] Current Patient Data Vital Signs Vital Signs Date Time Temp Pulse Resp B/P (MAP) Pulse Ox O2 Delivery O2 Flow Rate FiO2 06/29/19 23:00 88 18 97 06/29/19 22:55 Room Air 06/29/19 22:15 97.9 208/115 (146) 97.9 Lab Values Laboratory Tests Test 06/29/19 21:20 06/29/19 21:28 06/29/19 22:00 Urine Color Yellow Urine Clarity Clear Urine pH 5.0 Urine Specific [place] >=1.030 Urine Protein Negative mg/dL (NEG-TRACE) Urine Glucose (UA) >=1000 mg/dL (NEG) Urine Ketones (Stick) >=80 mg/dL (NEG) Urine Blood Negative (NEG) Urine Nitrite Negative (NEG) Urine Bilirubin Negative (NEG) Urine Urobilinogen Dipstick 0.2 mg/dL (0.2 mg/dL) Urine Leukocyte Esterase Negative (NEG) Urine RBC 0 /HPF (0-2) Urine WBC Occ /HPF (0-4) Urine Squamous Epithelial Cells Occ /LPF Urine Bacteria 0 /HPF (0-FEW) Urine Opiates Screen Neg (NEG) Urine Methadone Screen Neg (NEG) Urine Barbiturates Neg (NEG) Urine Phencyclidine Screen Neg (NEG) Urine Amphetamine/Methamphetamine Neg (NEG) Urine Benzodiazepines Screen Neg (NEG) Urine Cocaine Screen Neg (NEG) Urine Cannabinoids Screen Neg (NEG) Urine Ethyl Alcohol Neg (NEG) Glucose (Fingerstick) 186 mg/dL (70-99) H White Blood Count 7.1 x10^3/uL (4.0-11.0) Red Blood Count 5.24 x10^6/uL (4.30-5.70) Hemoglobin 16.3 g/dL (13.0-17.5) Hematocrit 47.5 % (39.0-53.0) Mean Corpuscular Volume 91 fL (79-100) Mean Corpuscular Hemoglobin 31 pg (25-35) Mean Corpuscular Hemoglobin Concent 34 g/dL (31-37) Red Cell Distribution Width 14.4 % (11.5-14.5) Platelet Count 303 x10^3/uL (140-400) Neutrophils (%) (Auto) 50 % (31-73) Lymphocytes (%) (Auto) 39 % (24-48) Monocytes (%) (Auto) 7 % (0-9) Eosinophils (%) (Auto) 3 % (0-3) Basophils (%) (Auto) 1 % (0-3) Neutrophils # (Auto) 3.6 x10^3/uL (1.8-7.7) Lymphocytes # (Auto) 2.8 x10^3/uL (1.0-4.8) Monocytes # (Auto) 0.5 x10^3/uL (0.0-1.1) Eosinophils # (Auto) 0.2 x10^3/uL (0.0-0.7) Basophils # (Auto) 0.1 x10^3/uL (0.0-0.2) Prothrombin Time 11.9 SEC (11.7-14.0) Prothrombin Time INR 0.9 (0.8-1.1) Sodium Level 141 mmol/L (136-145) Potassium Level 4.1 mmol/L (3.5-5.1) Chloride Level 101 mmol/L (98-107) Carbon Dioxide Level 25 mmol/L (21-32) Anion Gap 15 (6-14) H Blood Urea Nitrogen 19 mg/dL (8-26) Creatinine 1.1 mg/dL (0.7-1.3) Estimated GFR (Cockcroft-Gault) 72.7 BUN/Creatinine Ratio 17 (6-20) Glucose Level 161 mg/dL (70-99) H Calcium Level 9.6 mg/dL (8.5-10.1) Magnesium Level 1.9 mg/dL (1.8-2.4) Total Bilirubin 0.7 mg/dL (0.2-1.0) Aspartate Amino Transferase (AST) 12 U/L (15-37) L Alanine Aminotransferase (ALT) 29 U/L (16-63) Alkaline Phosphatase 200 U/L (46-116) H Creatine Kinase 97 U/L (39-308) Troponin I Quantitative < 0.017 ng/mL (0.000-0.055) SV-Eww-C-Type Natriuretic Peptide 43 pg/mL (0-124) Total Protein 7.3 g/dL (6.4-8.2) Albumin 3.6 g/dL (3.4-5.0) Albumin/Globulin Ratio 1.0 (1.0-1.7) Lipase 34 U/L (73-393) L Laboratory Tests 06/29/19 22:00 Laboratory Tests 06/29/19 22:00 EKG EKG EKG interpreted by me. EKG at 20 125 showed normal sinus rhythm at rate of 89 abnormal left axis deviation, left anterior fascicular block, incomplete right b undle-branch block, normal FL and QT intervals, no acute ST and T-wave elevation. Radiology/Procedures Radiology/Procedures [][facility] [address] [place] [address] IMAGING REPORT Signed PATIENT: WILIAM NAVARRO ACCOUNT: [id number] : 1975 LOCATION: ER AGE: 44 SEX: M EXAM STATUS: REG ER ORD. PHYSICIAN: ASUNCION ADAN MD REASON: headache and elevation of blood pressure PROCEDURE: PORTABLE CHEST 1V Single view chest dated 06/29/2019: Comparison made to 11/15/2017. Clinical Indication: Headache and hypertension. Findings: Single upright portable exam of the chest was performed. Heart size and mediastinal contours are within normal limits given technique. The lungs are clear without evidence of focal consolidation. Vascular interstitium is within normal limits. Minimal linear opacity at the left lung base, likely scar or atelectasis. Impression:: No acute radiographic abnormality. Electronically signed by: Victorino Brown MD (06/29/2019 10:34 PM) [facility] DICTATED and SIGNED BY: VICTORINO BROWN MD [facility] [address] [place] [address] IMAGING REPORT Signed PATIENT: WILIAM NAVARRO ACCOUNT: [id number] : 1975 LOCATION: ER AGE: 44 SEX: M EXAM STATUS: REG ER ORD. PHYSICIAN: ASUNCION ADAN MD REASON: high blood pressure PROCEDURE: CT HEAD WO CONTRAST CT head without contrast dated 06/29/2019. Comparison made to 05/14/2015. Clinical data indication: High blood pressure. TECHNIQUE: Contiguous axial imaging the head was performed from skull base to vertex. No contrast administered. One or more of the following individualized dose reduction techniques were utilized for this examination: 1. Automated exposure control 2. Adjustment of the mA and/or kV according to patient size 3. Use of iterative reconstruction technique. FINDINGS: Ventricles and sulci are within normal limits for age. No midline shift or mass effect. Brain parenchyma is of normal attenuation. No hemorrhage or extra-axial collection. Posterior fossa and brainstem unremarkable. Mild to moderate mucosal thickening of the bilateral ethmoid air cells. There is buckling of the medial wall of the left orbit consistent with old medial orbital blowout fracture, unchanged prior study. Mastoid air cells are clear. IMPRESSION: 1. No evidence of acute intracranial abnormality. 2. Mild sinus disease. Electronically signed by: Victorino Brown MD (06/29/2019 10:29 PM) [facility] DICTATED and SIGNED BY: VICTORINO BROWN MD DATE: 06/29/192228 TE: 06/29/192233 Course & Med Decision Making Course & Med Decision Making Pertinent Labs and Imaging studies reviewed. (See chart for details) Evaluation of patient in ER showed 44-year-old male patient with history of hypertension with complaining of headache and elevation of blood pressure. Patient had blood pressure of more than 200 at arrival to ER and treated with hydralazine, fentanyl, Dilaudid, chronically and Zofran with improvement of his blood pressure and pain. Patient had unremarkable EKG and CT head and labs.Shyla ent requiring admission for further evaluation and treatment. Discussed with Dr. Roth who is in agreement with admission. Discussed findings and plan with patient and family, who acknowledge understanding and agreement. Dragon Disclaimer Dragon Disclaimer This electronic medical record was generated, in whole or in part, using a voice recognition dictation system. Departure Departure Impression: Primary Impression: Hypertensive emergency Additional Impression: Headache Disposition: 09 ADMITTED INPATIENT Admitting Physician: Milan Roth (accepted admission at 2328.) Condition: IMPROVED Referrals: MILAN ROTH MD (PCP) Critical Care Time Critical care time was 60 minutes exclusive of procedures. Problem Qualifiers Additional Impression: Headache Headache type: unspecified Headache chronicity pattern: unspecified pattern Intractability: not intractable Qualified Codes: R51 - Headache ASUNCION ADAN MD Jun 29, 2019 23:25
[2019-06-29] MEDS ORDERED: ONDANSETRON PF 4 MG/2 ML VIAL. IV ONE (23:30)
[2019-06-29] MEDS ORDERED: cloNIDine HCL 0.1 MG TABLET PO ONE (23:30)
[2019-06-30] VITALS (8 sets, daily range): BP systolic 149–207; BP diastolic 83–118
[2019-06-30] MEDS ORDERED: ONDANSETRON PF 4 MG/2 ML VIAL. IV PRN (00:15)
[2019-06-30] MEDS ORDERED: HYDROmorphone 2 MG/ML VIAL IV ONE (02:30)
[2019-06-30] MEDS: hydrALAZINE 20 MG/ML VIAL. IVP PRN ×3 (02:40→19:43)
--- NOTE | 2019-06-30 06:02 | NUR ---
The patient, WILIAM NAVARRO, 44 y/o, M admitted by MILAN GUARDADO MD, was given written information regarding hospital policies, unit procedures and contact persons. Patient arrived at 0030 accompanied by mother. Patient belongings reviewed and left with patient.
--- NOTE | 2019-06-30 07:24 | EKG ---
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
[2019-06-30] MEDS ORDERED: INSU100I13 SQ (07:36)
[2019-06-30] MEDS ORDERED: INSU100V6 SQ (07:36)
[2019-06-30] MEDS ORDERED: DEXTROSE 50% 25 GM / 50ML DISP.SYRIN. IV PRN (08:45)
[2019-06-30] MEDS ORDERED: ZOLPIDEM 5 MG TABLET. PO PRN (08:45)
[2019-06-30] MEDS: ASPIRIN CHEWABLE 81 MG TABLET. PO SCH (09:23)
[2019-06-30] MEDS: amLODIPine BESYLATE 5 MG TABLET PO SCH (09:23)
[2019-06-30] MEDS: GABAPENTIN 400 MG CAPSULE. PO SCH ×3 (09:23→21:01)
[2019-06-30] MEDS: LOSARTAN POTASSIUM 50 MG TABLET. PO SCH (09:24)
[2019-06-30] MEDS: hydroCHLOROthiazide 25 MG TABLET PO SCH (09:24)
[2019-06-30] MEDS ORDERED: INSULIN LISPRO 300 UNITS/3 ML VIAL. SQ SCH (09:30)
[2019-06-30] MEDS: ACETAMINOPHEN 325 MG TABLET. PO PRN ×2 (09:47→22:51)
[2019-06-30] MEDS: INSULIN GLARGINE SYRINGE. SQ SCH (09:54)
[2019-06-30] MEDS ORDERED: INSULIN LISPRO 300 UNITS/3 ML VIAL. SQ ONE (10:00)
[2019-06-30] MEDS: INSULIN LISPRO 300 UNITS/3 ML VIAL. SQ SCH ×2 (13:01→17:00)
--- NOTE | 2019-06-30 13:06 | RAD ---
EXAM: Mariano scale and color Doppler renal artery sonogram. HISTORY: Hypertension. TECHNIQUE: Mariano scale and color Doppler sonographic imaging of the renal arteries with spectral analysis was performed. COMPARISON: None. FINDINGS: The right kidney measures 13.6 cm [id number]. The left kidney measures 14.3 cm [id number]. No solid or cystic renal lesion is seen. There is no hydronephrosis. The visualized portions of the aorta are normal in caliber. The origins of the renal arteries are obscured. The peak systolic velocity within the right renal artery is 168 cm/s. The peak systolic velocity within the left renal artery is 124 cm/s. There are normal renal artery to aorta velocity ratios. The bladder is unremarkable. IMPRESSION: 1. No Doppler evidence of greater than 60% stenosis involving the renal arteries. The origins of the renal arteries are obscured due to bowel gas and body habitus. 2. Unremarkable grayscale evaluation of the kidneys. Electronically signed by: Zoila Casanova MD (06/30/2019 1:03 PM) [id number]
--- NOTE | 2019-06-30 13:23 | NUR ---
SS following for discharge planning. SS reviewed pt chart. Pt is self pay pt. HCFS following for self pay status. Pt is from home and is currently on room air. SS will continue to follow for discharge planning.
[2019-06-30] MEDS ORDERED: traMADol 50 MG TABLET PO PRN (16:45)
[2019-06-30] MEDS ORDERED: cloNIDine TTS-2 1 PATCH PATCH TD SCH (16:45)
--- NOTE | 2019-06-30 17:00 | NUR ---
Nursing: Dr. Roth paged through his office x3 before. Once calling back I reported his blood pressure, orbital pressure, headache, ect. Patient reporting severe pain and sensitivity to light. Orders received (see eMAR). Will continue to monitor.
--- NOTE | 2019-06-30 17:29 | HP ---
ADMIT DATE: 06/29/2019 CHIEF COMPLAINT AND HISTORY OF PRESENT ILLNESS: This is a 44-year-old white male, who is well known to me from followup in the office. The patient has a longstanding history of type 1 diabetes with episodes of DKA in the past. Also, has a history of hyperlipidemia and hypertension. He has been out of his antihypertensives for the last 3-4 days. His pharmacy has not been able to obtain his regular medications, but have promised him that maybe in the next day or two they will be able to get them in. He began developing headache. Followed up at the Emergency Room because of very high blood pressures, was confirmed at the Emergency Room is 202/100 range and admitted for hypertensive urgency with symptomatology consistent with headache. PAST MEDICAL HISTORY: Remarkable for that as mentioned above. He has had a prior shoulder surgery on multiple occasions and the meniscal surgery on the right knee. MEDICATIONS: Brought with the patient, listed on the computer and have been addressed. ALLERGIES: He has no known drug allergies. SOCIAL HISTORY: Does not use drugs. He does chew tobacco and rarely uses alcohol. FAMILY HISTORY: Noncontributory. REVIEW OF SYSTEMS: As mentioned above. PHYSICAL EXAMINATION: GENERAL: He is well-developed, well-nourished white male, who appears at least mildly uncomfortable. VITAL SIGNS: Remarkable for the elevated blood pressure. He is afebrile. HEAD, EYES, EARS, NOSE AND THROAT: Unremarkable. NECK: Supple, without adenopathy or thyromegaly. CHEST: Clear to auscultation and percussion. HEART: Regular rate and rhythm without S3, S4 or murmur. ABDOMEN: Soft, nontender, without hepatosplenomegaly or masses. EXTREMITIES: Without cyanosis, clubbing or edema. NEUROLOGIC: Nonfocal. Blood pressures have been high in the Emergency Room and since admission. LABORATORY DATA: On admission includes a CBC that is unremarkable. Chemistry panel with a troponin is negative. CMP was essentially unremarkable. He is using insulin pump at home and did not bring it with him because of prior hospitalizations and not using it. His INR is within normal limits. Urine drug screen is negative and urinalysis does show some glucose as well as some ketones. IMPRESSION: 1. Hypertensive urgency with headache. 2. Insulin-dependent diabetes mellitus. 3. Hyperlipidemia. PLAN: The patient has been admitted. Discussed with him in detail. He normally takes Tribenzor, which is a combination of amlodipine, Benicar, and hydrochlorothiazide and we will start this as closely as we can this morning with hospital formulary. P.r.n., hydralazine is on board. I am going to check a renal artery ultrasound. As per history, he has had hypertension and have been taking medicine since age 17, which is quite unusual. MILAN GUARDADO MD DR: DEEPA/lynda JOB#: [id number] / [id number]
[2019-06-30] MEDS: fentaNYL PF VIAL 100 MCG/2 ML VIAL IVP PRN ×2 (17:37→21:02)
[2019-06-30] MEDS ORDERED: ATORVASTATIN CALCIUM 20 MG TABLET PO SCH (21:00)
[2019-06-30] MEDS ORDERED: METOPROLOL TART IMMED RELEASE 50 MG TABLET. PO ONE (22:45)
[2019-07-01 03:22] VITALS: BP 146/89
[2019-07-01 07:29] VITALS: BP_SYST 146; BP_SYST 150; BP_DIAS 107; BP_DIAS 89
[2019-07-01] MEDS: GABAPENTIN 400 MG CAPSULE. PO SCH (09:03)
[2019-07-01] MEDS: hydroCHLOROthiazide 25 MG TABLET PO SCH (09:03)
[2019-07-01] MEDS: ASPIRIN CHEWABLE 81 MG TABLET. PO SCH (09:03)
[2019-07-01] MEDS: LOSARTAN POTASSIUM 50 MG TABLET. PO SCH (09:03)
[2019-07-01] MEDS: amLODIPine BESYLATE 5 MG TABLET PO SCH (09:03)
[2019-07-01] MEDS: INSULIN LISPRO 300 UNITS/3 ML VIAL. SQ SCH (09:08)
[2019-07-01] MEDS: INSULIN GLARGINE SYRINGE. SQ SCH (09:09)
--- NOTE | 2019-07-01 09:34 | DS ---
DATE OF DISCHARGE: 07/01/2019 PRIMARY DIAGNOSIS: Hypertensive urgency. ADDITIONAL DIAGNOSES: Insulin-dependent diabetes mellitus and hyperlipidemia. CHIEF COMPLAINT AND HISTORY OF PRESENT ILLNESS: This 44-year-old white male is well known to us from followup in the office. The patient had a headache and extremely high blood pressures leading himself to the Emergency Room on the day of admission where he was admitted with the same with hypertensive urgency. SUMMARY OF STAY: The patient was admitted. Blood pressure medicines were adjusted throughout the stay. He was down to the point where his blood pressure was in the 140s/90s range without any further headache, etc., it was felt he could be dismissed with outpatient followup. Interestingly, the commercial front load driver of this all was the pharmacy being unable to obtain his medicine, he has been out for several days. He was on triple therapy prior to that with decent blood pressures and we would guess he will go back to the same once he is able to get his medications filled. I have written prescriptions for the three ingredients in his pills to fill separately as the pharmacy does not have them at this point in time. He will also go home on Frimlrop-FUC-2 patch, which he has been placed on here until the week of it runs out and he will stop by my office to get some samples of BYSTOLIC 10 mg in the interim for a week or so. I anticipate this all will be resolving once he is back on his regular medicines. DISPOSITION: The patient is discharged to home, ADA diet. ACTIVITY: As tolerated, office in 1 week. DISCHARGE MEDICATIONS: Listed on the med rec and have been addressed. MILAN GUARDADO MD DR: DEEPA/lynda JOB#: [id number] / [id number]
[2019-07-01 11:10] VITALS: BP 151/87
--- NOTE | 2019-07-01 11:50 | NUR ---
Discharge Note: WILIAM NAVARRO Discharge instructions and discharge home medications reviewed with Patient and a copy given. All questions have been answered and understanding verbalized. The following instructions and handouts were given: written prescriptions for Ibersartan, Amlodipine, Norvasc which are to be taken temporarily until patients home B/P med is available from pharmacy. Patient is also to keep Clonidine patch on for 1 week and follow up with PCP Discontinued lines and drains: IV discontinued with dressing clean, dry and intact. Patient discharged to Home or Self Care with Self via Ambulated
== END 2019-07-01 11:39 | disposition home or self-care (01) | DRG 305 ==
LOC: ER 21:10 → 2 NORTH 23:18
PROVIDERS: ADMIT Family Medicine; ATTEND Family Medicine
DX: I16.1 Hypertensive emergency (principal); E10.9 Type 1 diabetes mellitus without complications; E78.00 Pure hypercholesterolemia, unspecified; I10 Essential (primary) hypertension; Z79.4 Long term (current) use of insulin; Z96.41 Presence of insulin pump (external) (internal); E78.5 Hyperlipidemia, unspecified; Z79.899 Other long term (current) drug therapy
CPT/HCPCS: 36415; 70450; 71045; 76770; 80053; 80307; 81001; 82550; 82962; 83690; 83735; 83880; 84484; 85025; 85610; 93005; 96374; 96375; J0360; J1170; J1815; J2405; J3010; 99285-25; G0378

== ENCOUNTER 2019-07-03 00:48 | Emergency (ER) | payer SELFPAY ==
[~2019-07-03] VITALS: Ht 190.5 cm; Wt 127.0 kg
[~2019-07-03 00:48] MED LIST changes: +INSU100I13 SQ; +INSU100V6 SQ
[2019-07-03 01:22] LABS: BASO # 0.1 x10^3/uL (0.0-0.2); BASO % 1 % (0-3); EOS # 0.3 x10^3/uL (0.0-0.7); EOS % 4 % (0-3); HEMATOCRIT 43.6 % (39.0-53.0); HEMOGLOBIN 14.3 g/dL (13.0-17.5); LYMPH # 2.6 x10^3/uL (1.0-4.8); LYMPH % 38 % (24-48); MEAN CORPUSCULAR HEMOGLOBIN 31 pg (25-35); MEAN CORPUSCULAR HGB CONC 33 g/dL (31-37); MEAN CORPUSCULAR VOLUME 94 fL (79-100); MONO # 0.4 x10^3/uL (0.0-1.1); MONO % 6 % (0-9); NEUT # 3.5 x10^3/uL (1.8-7.7); NEUT % 51 % (31-73); PLATELET COUNT 255 x10^3/uL (140-400); RED BLOOD COUNT 4.63 x10^6/uL (4.30-5.70); RED CELL DISTRIBUTION WIDTH 14.2 % (11.5-14.5); WHITE BLOOD COUNT 6.8 x10^3/uL (4.0-11.0)
[2019-07-03 01:24] LABS: BILIRUBIN,URINE NEGATIVE (NEG); CLARITY,URINE CLEAR; COLOR,URINE YELLOW; NITRITE,URINE NEGATIVE (NEG); PROTEIN,URINE NEGATIVE (NEG-TRACE); UROBILINOGEN,URINE 0.2 mg/dL (0.2 mg/dL)
[2019-07-03 01:29] LABS: BACTERIA,URINE 0 /HPF (0-FEW); RBC,URINE 0 /HPF (0-2); SQUAMOUS EPITHELIAL CELL,UR OCC /LPF; WBC,URINE 0 /HPF (0-4)
[2019-07-03 01:30] VITALS: BP 154/88
[2019-07-03] MEDS ORDERED: METOCLOPRAMIDE HCL 10 MG/2 ML VIAL. IVP ONE (01:30)
[2019-07-03] MEDS ORDERED: IV NORMAL SALINE 1000ML BAG 1,000 ML IV SCH (01:30)
[2019-07-03] MEDS ORDERED: KETOROLAC 30 MG/ML VIAL. IV ONE (01:30)
[2019-07-03] MEDS ORDERED: diphenhydrAMINE 50 MG/ML VIAL IVP ONE (01:30)
[2019-07-03 01:37] LABS: ALBUMIN 3.1 g/dL (3.4-5.0); ALBUMIN/GLOBULIN RATIO 0.9 (1.0-1.7); CALCIUM 8.8 mg/dL (8.5-10.1); CREATININE 1.3 mg/dL (0.7-1.3); POTASSIUM 4.8 mmol/L (3.5-5.1); TOTAL BILIRUBIN 0.3 mg/dL (0.2-1.0); TOTAL PROTEIN 6.6 g/dL (6.4-8.2)
[2019-07-03 01:46] LABS: BASE EXCESS ABG -3 mmol/L (-3-3); HCO3 ABG 22 mmol/L (21-28); PCO2 ABG 37 mmHg (35-46); PO2 ABG 83 mmHg (75-108); SAT O2 ABG 96 % (92-99)
--- NOTE | 2019-07-03 01:55 | PHYS DOC ---
Past Medical History Past Medical History: No Pertinent History, Diabetes-Type I, High Cholesterol, Hypertension Past Surgical History: Other Additional Past Surgical Histo: SHOULDER X 6, r knee meniscus shaved Alcohol Use: Occasionally Drug Use: None Adult General Chief Complaint Chief Complaint: HYPERTENSION HPI HPI 44-year-old male presents immersed for complaints of headache, uncontrolled b lood pressure, uncontrolled blood sugars. Patient was recently discharged from this facility yesterday around noon states his blood pressure was not controlled at that time. He fired his primary care physician. He presents tonight with continued headache and blood sugar greater than 500. Patient describes nausea, headache. Denies any vomiting, fever, abdominal discomfort, chest pain, shortness of breath. Nothing makes his symptoms worse, nothing makes symptoms better. Review of Systems Review of Systems Constitutional: Denies fever or chills [] Respiratory: Denies cough or shortness of breath [] Cardiovascular: No additional information not addressed in HPI [] GI: Denies abdominal pain, + nausea, no vomiting, bloody stools or diarrhea [] : Denies dysuria or hematuria [] Musculoskeletal: Denies back pain or joint pain [] Integument: Denies rash or skin lesions [] Neurologic: + headache, no focal weakness or sensory changes [] All other systems were reviewed and found to be within normal limits, except as documented in this note. Current Medications Current Medications Current Medications Medications (Trade) Dose Ordered Sig/Radha Start Time Stop Time Status Last Admin Dose Admin Diphenhydramine HCl (Benadryl) 50 mg 1X ONCE 07/03/19 01:30 07/03/19 01:31 DC 07/03/19 01:23 50 MG Insulin Human Regular (HumuLIN R VIAL) 10 unit ONCE ONCE 07/03/19 02:30 07/03/19 02:31 UNV Ketorolac Tromethamine (Toradol 30mg Vial) 30 mg 1X ONCE 07/03/19 01:30 07/03/19 01:31 DC 07/03/19 01:23 30 MG Metoclopramide HCl (Reglan Vial) 10 mg 1X ONCE 07/03/19 01:30 07/03/19 01:31 DC 07/03/19 01:23 10 MG Sodium Chloride 1,000 ml @ 1,000 mls/hr Q1H 07/03/19 01:30 07/03/19 02:29 07/03/19 01:23 1,000 MLS/HR Allergies Allergies Allergies Coded Allergies Type Severity Reaction Last Updated Verified No Known Drug Allergies 02/17/16 No Physical Exam Physical Exam Constitutional: Well developed, well nourished, no acute distress, non-toxic appearance. [] HENT: Normocephalic, atraumatic, bilateral external ears normal, oropharynx moist, no oral exudates, nose normal. [] Eyes: PERRLA, EOMI, conjunctiva normal, no discharge. [] Cardiovascular:Heart rate regular rhythm, no murmur [] Lungs & Thorax: Bilateral breath sounds clear to auscultation [] Abdomen: Bowel sounds normal, soft, no tenderness, no masses, no pulsatile masses. [] Skin: Warm, dry, no erythema, no rash. [] Back: No tenderness, no CVA tenderness. [] Extremities: No tenderness, no edema. [] Neurologic: Alert and oriented X 3, no focal deficits noted. [] Psychologic: Affect normal, judgement normal, mood normal. [] Current Patient Data Vital Signs Vital Signs Date Time Temp Pulse Resp B/P (MAP) Pulse Ox O2 Delivery O2 Flow Rate FiO2 07/03/19 00:55 97.6 82 17 148/77 (100) 96 Room Air 97.6 Lab Values Laboratory Tests Test 07/03/19 00:54 07/03/19 00:56 07/03/19 01:05 07/03/19 01:25 Urine Collection Type Unknown Urine Color Yellow Urine Clarity Clear Urine pH 6.0 Urine Specific [place] 1.025 Urine Protein Negative mg/dL (NEG-TRACE) Urine Glucose (UA) >=1000 mg/dL (NEG) Urine Ketones (Stick) Negative mg/dL (NEG) Urine Blood Negative (NEG) Urine Nitrite Negative (NEG) Urine Bilirubin Negative (NEG) Urine Urobilinogen Dipstick 0.2 mg/dL (0.2 mg/dL) Urine Leukocyte Esterase Negative (NEG) Urine RBC 0 /HPF (0-2) Urine WBC 0 /HPF (0-4) Urine Squamous Epithelial Cells Occ /LPF Urine Bacteria 0 /HPF (0-FEW) Glucose (Fingerstick) 568 mg/dL (70-99) *H White Blood Count 6.8 x10^3/uL (4.0-11.0) Red Blood Count 4.63 x10^6/uL (4.30-5.70) Hemoglobin 14.3 g/dL (13.0-17.5) Hematocrit 43.6 % (39.0-53.0) Mean Corpuscular Volume 94 fL (79-100) Mean Corpuscular Hemoglobin 31 pg (25-35) Mean Corpuscular Hemoglobin Concent 33 g/dL (31-37) Red Cell Distribution Width 14.2 % (11.5-14.5) Platelet Count 255 x10^3/uL (140-400) Neutrophils (%) (Auto) 51 % (31-73) Lymphocytes (%) (Auto) 38 % (24-48) Monocytes (%) (Auto) 6 % (0-9) Eosinophils (%) (Auto) 4 % (0-3) H Basophils (%) (Auto) 1 % (0-3) Neutrophils # (Auto) 3.5 x10^3/uL (1.8-7.7) Lymphocytes # (Auto) 2.6 x10^3/uL (1.0-4.8) Monocytes # (Auto) 0.4 x10^3/uL (0.0-1.1) Eosinophils # (Auto) 0.3 x10^3/uL (0.0-0.7) Basophils # (Auto) 0.1 x10^3/uL (0.0-0.2) Sodium Level 133 mmol/L (136-145) L Potassium Level 4.8 mmol/L (3.5-5.1) Chloride Level 97 mmol/L (98-107) L Carbon Dioxide Level 26 mmol/L (21-32) Anion Gap 10 (6-14) Blood Urea Nitrogen 23 mg/dL (8-26) Creatinine 1.3 mg/dL (0.7-1.3) Estimated GFR (Cockcroft-Gault) 60.0 BUN/Creatinine Ratio 18 (6-20) Glucose Level 620 mg/dL (70-99) *H Calcium Level 8.8 mg/dL (8.5-10.1) Total Bilirubin 0.3 mg/dL (0.2-1.0) Aspartate Amino Transferase (AST) 10 U/L (15-37) L Alanine Aminotransferase (ALT) 21 U/L (16-63) Alkaline Phosphatase 188 U/L (46-116) H Total Protein 6.6 g/dL (6.4-8.2) Albumin 3.1 g/dL (3.4-5.0) L Albumin/Globulin Ratio 0.9 (1.0-1.7) L Acetone Level Neg (NEG) O2 Saturation 96 % (92-99) Arterial Blood pH 7.38 (7.35-7.45) Arterial Blood pCO2 at Patient Temp 37 mmHg (35-46) Arterial Blood pO2 at Patient Temp 83 mmHg (75-108) Arterial Blood HCO3 22 mmol/L (21-28) Arterial Blood Base Excess -3 mmol/L (-3-3) FiO2 21 Laboratory Tests 07/03/19 01:05 Laboratory Tests 07/03/19 01:05 EKG EKG [] Radiology/Procedures Radiology/Procedures [] Course & Med Decision Making Course & Med Decision Making Pertinent Labs and Imaging studies reviewed. (See chart for details) [] 44-year-old male presents immersed for complaints of headache, uncontrolled blood pressure, uncontrolled blood sugars. Patient was recently discharged from this facility yesterday around noon states his blood pressure was not controlled at that time. He fired his primary care physician. He presents tonight with continued headache and blood sugar greater than 500. Patient describes nausea, headache. Denies any vomiting, fever, abdominal discomfort, chest pain, shortness of breath. Nothing makes his symptoms worse, nothing makes symptoms better. Patient is leaving AMA 2/2 family issues Labs reviewed - aside from elevated BG no acute concern Patient received IVF, benadryl, reglan, and toradol BP stable - no need to treat at this time Dragon Disclaimer Dragon Disclaimer This electronic medical record was generated, in whole or in part, using a voice recognition dictation system. Departure Departure Impression: Primary Impression: Headache Additional Impression: Uncontrolled diabetes mellitus Disposition: 07 AGAINST MEDICAL ADVICE Condition: STABLE Referrals: NO PCP (PCP) Problem Qualifiers Primary Impression: Headache Headache type: unspecified Headache chronicity pattern: acute headache Intractability: intractable Qualified Codes: R51 - Headache Additional Impression: Uncontrolled diabetes mellitus Diabetes mellitus type: type 1 Glycemic state: with hyperglycemia Qualified Codes: E10.65 - Type 1 diabetes mellitus with hyperglycemia NITISH ALDRIDGE MD Jul 03, 2019 01:55
[2019-07-03 02:08] LABS: FIO2 ABG 21
[2019-07-03] MEDS ORDERED: INSULIN REGULAR 100 UNIT/ML 3ML VIAL. SQ ONE (02:30)
--- NOTE | 2019-07-03 06:17 | EKG ---
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
== END 2019-07-03 02:20 | disposition left against medical advice (07) ==
LOC: ER 00:48
DX: R51 Headache (principal); E10.65 Type 1 diabetes mellitus with hyperglycemia; I10 Essential (primary) hypertension; E78.00 Pure hypercholesterolemia, unspecified
CPT/HCPCS: 36415; 36600; 80053; 81001; 82010; 82805; 82962; 85025; 93005; 96374; 96375; 99285; J1200; J1885; J2765; J7030; 96361

== ENCOUNTER 2019-08-28 14:46 | Emergency (ER) | payer SELFPAY ==
[~2019-08-28] VITALS: Ht 190.5 cm; Wt 74.8 kg
[~2019-08-28 14:46] MED LIST changes: -OLME1TAB PO; +OLME1TAB83 PO
[2019-08-28] MEDS ORDERED: IV NORMAL SALINE 1000ML BAG 1,000 ML IV SCH (16:07)
[2019-08-28] MEDS ORDERED: ONDANSETRON PF 4 MG/2 ML VIAL. IV ONE (16:15)
[2019-08-28] MEDS ORDERED: fentaNYL PF VIAL 100 MCG/2 ML VIAL IVP ONE (16:15)
--- NOTE | 2019-08-28 16:25 | PHYS DOC ---
Past Medical History Past Medical History: Diabetes-Type I, High Cholesterol, Hypertension Past Surgical History: Other Additional Past Surgical Histo: SHOULDER X 6, r knee meniscus shaved Alcohol Use: Occasionally Drug Use: None Adult General Chief Complaint Chief Complaint: BLOOD SUGAR PROBLEM HPI HPI Patient is a 44 year old male who presents with patient states that yesterday he began feeling like his blood sugars were elevated. States began feeling nauseated with excessive thirst, frequent urination and a headache. States today he vomited 5-6 times. He rates pain a 7 out of 10. States this morning at 12:30 he took his blood sugar and it read high which made it was over 600. States he took 40 units of his Novolin and ate some food. He states that he did take his blood pressure medications and kept them down. In the emergency room his glucose is 355. He is rating his headache as 7 out of 10. Review of Systems Review of Systems GI: Denies abdominal pain. + nausea, + vomiting, denies bloody stools or diarrhea [] : urinary frequency, excessive thirst, Denies dysuria or hematuria [] Neurologic: headache, denies focal weakness or sensory changes [] All other systems were reviewed and found to be within normal limits, except as documented in this note. Current Medications Current Medications Current Medications Medications (Trade) Dose Ordered Sig/Radha Start Time Stop Time Status Last Admin Dose Admin Fentanyl Citrate (Fentanyl 2ml Vial) 50 mcg 1X ONCE 08/28/19 16:15 08/28/19 16:20 DC 08/28/19 16:46 50 MCG Ketorolac Tromethamine (Toradol 30mg Vial) 30 mg 1X ONCE 08/28/19 17:30 08/28/19 17:31 DC 08/28/19 17:57 30 MG Ondansetron HCl (Zofran) 4 mg 1X ONCE 08/28/19 16:15 08/28/19 16:20 DC 08/28/19 16:46 4 MG Prochlorperazine Edisylate (Compazine) 10 mg 1X ONCE 08/28/19 17:30 08/28/19 17:31 DC 08/28/19 17:58 10 MG Sodium Chloride 1,000 ml @ 1,000 mls/hr 1X ONCE 08/28/19 17:15 08/28/19 18:14 DC 08/28/19 17:56 1,000 MLS/HR Allergies Allergies Allergies Coded Allergies Type Severity Reaction Last Updated Verified No Known Drug Allergies 02/17/16 No Physical Exam Physical Exam Constitutional: Well developed, well nourished, no acute distress, non-toxic appearance. [] HENT: Normocephalic, atraumatic, bilateral external ears normal, oropharynx moist, no oral exudates, nose normal. [] Eyes: PERRLA, EOMI, conjunctiva normal, no discharge. [] Neck: Normal range of motion, no tenderness, supple, no stridor. [] Cardiovascular:Heart rate regular rhythm, no murmur [] Lungs & Thorax: Bilateral breath sounds clear to auscultation [] Abdomen: Bowel sounds normal, soft, no tenderness, no masses, no pulsatile masses. [] Skin: Warm, dry, no erythema, no rash. [] Back: No tenderness, no CVA tenderness. [] Extremities: No tenderness, no cyanosis, no clubbing, ROM intact, no edema. [] Neurologic: Alert and oriented X 3, normal motor function, normal sensory function, no focal deficits noted. [] Psychologic: Affect normal, judgement normal, mood normal. [] Normal Physical Exam Current Patient Data Vital Signs Vital Signs Date Time Temp Pulse Resp B/P (MAP) Pulse Ox O2 Delivery O2 Flow Rate FiO2 08/28/19 16:46 16 97 Room Air 08/28/19 16:08 98.6 92 170/112 (131) 98.6 Lab Values Laboratory Tests Test 08/28/19 16:07 08/28/19 16:33 Glucose (Fingerstick) 355 mg/dL (70-99) H White Blood Count 8.4 x10^3/uL (4.0-11.0) Red Blood Count 5.01 x10^6/uL (4.30-5.70) Hemoglobin 15.3 g/dL (13.0-17.5) Hematocrit 46.0 % (39.0-53.0) Mean Corpuscular Volume 92 fL (79-100) Mean Corpuscular Hemoglobin 31 pg (25-35) Mean Corpuscular Hemoglobin Concent 33 g/dL (31-37) Red Cell Distribution Width 14.2 % (11.5-14.5) Platelet Count 294 x10^3/uL (140-400) Neutrophils (%) (Auto) 76 % (31-73) H Lymphocytes (%) (Auto) 17 % (24-48) L Monocytes (%) (Auto) 5 % (0-9) Eosinophils (%) (Auto) 1 % (0-3) Basophils (%) (Auto) 0 % (0-3) Neutrophils # (Auto) 6.4 x10^3/uL (1.8-7.7) Lymphocytes # (Auto) 1.5 x10^3/uL (1.0-4.8) Monocytes # (Auto) 0.4 x10^3/uL (0.0-1.1) Eosinophils # (Auto) 0.1 x10^3/uL (0.0-0.7) Basophils # (Auto) 0.0 x10^3/uL (0.0-0.2) Urine Collection Type Unknown Urine Color Yellow Urine Clarity Clear Urine pH 5.5 Urine Specific [place] >=1.030 Urine Protein Negative mg/dL (NEG-TRACE) Urine Glucose (UA) >=1000 mg/dL (NEG) Urine Ketones (Stick) 40 mg/dL (NEG) Urine Blood Negative (NEG) Urine Nitrite Negative (NEG) Urine Bilirubin Negative (NEG) Urine Urobilinogen Dipstick 0.2 mg/dL (0.2 mg/dL) Urine Leukocyte Esterase Negative (NEG) Urine RBC 1-2 /HPF (0-2) Urine WBC 0 /HPF (0-4) Urine Bacteria 0 /HPF (0-FEW) Sodium Level 136 mmol/L (136-145) Potassium Level 4.0 mmol/L (3.5-5.1) Chloride Level 100 mmol/L (98-107) Carbon Dioxide Level 21 mmol/L (21-32) Anion Gap 15 (6-14) H Blood Urea Nitrogen 21 mg/dL (8-26) Creatinine 1.3 mg/dL (0.7-1.3) Estimated GFR (Cockcroft-Gault) 60.0 BUN/Creatinine Ratio 16 (6-20) Glucose Level 357 mg/dL (70-99) H Calcium Level 8.6 mg/dL (8.5-10.1) Total Bilirubin 0.8 mg/dL (0.2-1.0) Aspartate Amino Transferase (AST) 11 U/L (15-37) L Alanine Aminotransferase (ALT) 27 U/L (16-63) Alkaline Phosphatase 153 U/L (46-116) H Troponin I Quantitative < 0.017 ng/mL (0.000-0.055) Total Protein 7.0 g/dL (6.4-8.2) Albumin 3.4 g/dL (3.4-5.0) Albumin/Globulin Ratio 0.9 (1.0-1.7) L Acetone Level Neg (NEG) Laboratory Tests 08/28/19 16:33 Laboratory Tests 08/28/19 16:33 EKG EKG Sinus Rhythm and no STEMI[] Interpretation Time: [address] Boles Radiology/Procedures Radiology/Procedures [] Course & Med Decision Making Course & Med Decision Making Alert and oriented. Speaks in full clear sentences. Skin pink warm and dry. Ambulatory with steady gait. Patient denies diarrhea, Abdominal pain, chest pain, shortness of air, dizziness, syncope, fever, cough, dysuria, numbness or tingling, visual changes, weakness. Lungs are clear to auscultation all lobes. Abdomen is soft and nontender. Blood pressure slightly elevated but vital signs otherwise normal. PERRLA. No STEMI edema. Moves all extremities equally with equal strength. Patient to recieve 2 Liters of NS in the ED. I have gone over the patietn findings and care plan with Dr Boles. The patient is educated to eat a diabetic diet and take all medications as prescribed. Patient educated to follow up with primary care provider. Patient agrees to the care plan above but states that he still has a headache right behind his right eye. I will give him Toradol and Compazine. Also have nurse put him on Oxygen to see if that help his pain. Patient also states now that his new insurance has kicked in that he is going back on the insulin pump next week. 1836: Patient states he is feeling much better and his headache is gone. Patient discharged home. Dragon Disclaimer Go Disclaimer This electronic medical record was generated, in whole or in part, using a voice recognition dictation system. Departure Departure Impression: Primary Impression: Hyperglycemia Additional Impression: Headache Disposition: 01 HOME, SELF-CARE Condition: STABLE Referrals: NO PCP (PCP) Patient Instructions: Hyperglycemia, [id number] Additional Instructions: Follow up with primary care as discussed. Practice a Diabetic diet. Take all medications as prescribed. Scripts Ondansetron (ONDANSETRON ODT) 4 Mg Tab.rapdis 1 TAB PO PRN Q6-8HRS, #16 TAB Prov: JUAN PABLO LAZAR [employer] TRA[employer]CH[employer]IC 08/28/19 Problem Qualifiers Additional Impression: Headache Headache type: unspecified Headache chronicity pattern: acute headache Intractability: not intractable Qualified Codes: R51 - Headache JUAN PABLO LAZAR APRN Aug 28, 2019 16:25
[2019-08-28 16:45] LABS: BASO % 0 % (0-3); EOS # 0.1 x10^3/uL (0.0-0.7); EOS % 1 % (0-3); HEMOGLOBIN 15.3 g/dL (13.0-17.5); LYMPH # 1.5 x10^3/uL (1.0-4.8); LYMPH % 17 % (24-48); MEAN CORPUSCULAR HEMOGLOBIN 31 pg (25-35); MEAN CORPUSCULAR HGB CONC 33 g/dL (31-37); MEAN CORPUSCULAR VOLUME 92 fL (79-100); MONO # 0.4 x10^3/uL (0.0-1.1); MONO % 5 % (0-9); NEUT # 6.4 x10^3/uL (1.8-7.7); NEUT % 76 % (31-73); PLATELET COUNT 294 x10^3/uL (140-400); RED BLOOD COUNT 5.01 x10^6/uL (4.30-5.70); RED CELL DISTRIBUTION WIDTH 14.2 % (11.5-14.5); WHITE BLOOD COUNT 8.4 x10^3/uL (4.0-11.0)
[2019-08-28 16:51] LABS: BILIRUBIN,URINE NEGATIVE (NEG); CLARITY,URINE CLEAR; COLOR,URINE YELLOW; NITRITE,URINE NEGATIVE (NEG); PH,URINE 5.5; PROTEIN,URINE NEGATIVE (NEG-TRACE); UROBILINOGEN,URINE 0.2 mg/dL (0.2 mg/dL)
[2019-08-28 17:01] LABS: CALCIUM 8.6 mg/dL (8.5-10.1); CREATININE 1.3 mg/dL (0.7-1.3)
[2019-08-28 17:06] LABS: ALBUMIN 3.4 g/dL (3.4-5.0); ALBUMIN/GLOBULIN RATIO 0.9 (1.0-1.7); TOTAL BILIRUBIN 0.8 mg/dL (0.2-1.0)
[2019-08-28 17:07] LABS: BACTERIA,URINE 0 /HPF (0-FEW); WBC,URINE 0 /HPF (0-4)
[2019-08-28] MEDS ORDERED: IV NORMAL SALINE 1000ML BAG 1,000 ML IV ONE (17:15)
[2019-08-28] MEDS ORDERED: ONDA4TAB12 PO (17:24)
[2019-08-28] MEDS ORDERED: PROCHLORPERAZINE 10 MG/2 ML VIAL. IV ONE (17:30)
[2019-08-28] MEDS ORDERED: KETOROLAC 30 MG/ML VIAL. IVP ONE (17:30)
[2019-08-28 18:00] VITALS: BP 134/73
--- NOTE | 2019-08-31 07:36 | EKG ---
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
== END 2019-08-28 19:15 | disposition home or self-care (01) ==
LOC: ER 14:46
DX: E10.65 Type 1 diabetes mellitus with hyperglycemia (principal); R11.2 Nausea with vomiting, unspecified; R35.0 Frequency of micturition; R51 Headache; R63.1 Polydipsia; E78.00 Pure hypercholesterolemia, unspecified; I10 Essential (primary) hypertension; Z98.890 Other specified postprocedural states; Z79.899 Other long term (current) drug therapy
CPT/HCPCS: 36415; 80053; 81001; 82010; 82962; 84484; 85025; 93005; 96361; 96374; 96375; 99285; J0780; J1885; J2405; J3010; J7030; 99284

== ENCOUNTER 2020-07-11 21:36 | Emergency (ER) | payer OTHER ==
[~2020-07-11] VITALS: Ht 190.5 cm; Wt 123.0 kg
[~2020-07-11 21:36] MED LIST changes: +AMLO-186 PO; +AMLO-187 PO; -AMLO10TA8 PO; +IRBE150T21 PO; -OLME1TAB83 PO; +ONDA4TAB12 PO; +[UNRECOGNIZED DRUG - CODE] PO
[2020-07-11 23:15] LABS: BASO % 1 % (0-3); EOS # 0.4 x10^3/uL (0.0-0.7); EOS % 6 % (0-3); HEMATOCRIT 43.9 % (39.0-53.0); HEMOGLOBIN 14.9 g/dL (13.0-17.5); LYMPH # 2.3 x10^3/uL (1.0-4.8); LYMPH % 38 % (24-48); MEAN CORPUSCULAR HEMOGLOBIN 31 pg (25-35); MEAN CORPUSCULAR HGB CONC 34 g/dL (31-37); MEAN CORPUSCULAR VOLUME 91 fL (79-100); MONO # 0.5 x10^3/uL (0.0-1.1); MONO % 8 % (0-9); NEUT # 2.8 x10^3/uL (1.8-7.7); NEUT % 47 % (31-73); PLATELET COUNT 268 x10^3/uL (140-400); RED BLOOD COUNT 4.84 x10^6/uL (4.30-5.70); RED CELL DISTRIBUTION WIDTH 12.7 % (11.5-14.5)
[2020-07-11] MEDS ORDERED: IV NORMAL SALINE 1000ML BAG 1,000 ML IV ONE (23:15)
[2020-07-11] MEDS ORDERED: INSULIN REGULAR 100 UNIT/ML 3ML VIAL. IV ONE (23:15)
[2020-07-11 23:23] LABS: CALCIUM 9.4 mg/dL (8.5-10.1); CREATININE 1.2 mg/dL (0.7-1.3); GFR 65.5
[2020-07-11 23:29] LABS: ALBUMIN 3.5 g/dL (3.4-5.0); ALBUMIN/GLOBULIN RATIO 0.9 (1.0-1.7); MAGNESIUM 1.8 mg/dL (1.8-2.4); TOTAL BILIRUBIN 0.3 mg/dL (0.2-1.0); TOTAL PROTEIN 7.2 g/dL (6.4-8.2)
[2020-07-12 00:20] LABS: BILIRUBIN,URINE NEGATIVE (NEG); CLARITY,URINE CLEAR; COLOR,URINE YELLOW; NITRITE,URINE NEGATIVE (NEG); PH,URINE 7.5 (<5.0-8.0); PROTEIN,URINE NEGATIVE (NEG-TRACE); UROBILINOGEN,URINE 0.2 mg/dL (0.2 mg/dL)
[2020-07-12 00:26] LABS: BACTERIA,URINE 0 /HPF (0-FEW); RBC,URINE 0 /HPF (0-2); WBC,URINE 0 /HPF (0-4)
[2020-07-12 01:14] VITALS: BP 172/91
--- NOTE | 2020-07-12 01:18 | PHYS DOC ---
Past Medical History Past Medical History: Diabetes-Type I, High Cholesterol, Hypertension Past Surgical History: Other Additional Past Surgical Histo: SHOULDER X 6, r knee meniscus shaved Smoking Status: Former Smoker Alcohol Use: Occasionally Drug Use: None General Adult EDM: Chief Complaint: BLOOD SUGAR PROBLEM HPI: HPI: Patient is a 45 year old male with history of diabetic, on medication and insulin at home. Patient came to ER today for treatment because his blood sugar has been elevated at home. Patient has taken his medication and insulin but his blood sugar did not improve. Patient denies any chest pain, no abdominal pain, no nausea vomiting. Patient denies any cough or fever. Patient denies being exposed to anybody who tested positive for COVID-19. Review of Systems: Review of Systems: Constitutional: Denies fever or chills. [] Eyes: Denies change in visual acuity. [] HENT: Denies nasal congestion or sore throat. [] Respiratory: Denies cough or shortness of breath. [] Cardiovascular: Denies chest pain or edema. [] GI: Denies abdominal pain, nausea, vomiting, bloody stools or diarrhea. [] : Denies dysuria. [] Musculoskeletal: Denies back pain or joint pain. [] Integument: Denies rash. [] Neurologic: Denies headache, focal weakness or sensory changes. [] Endocrine: Denies polyuria or polydipsia. [] Lymphatic: Denies swollen glands. [] Psychiatric: Denies depression or anxiety. [] Heart Score: Risk Factors: Risk Factors: DM, Current or recent (<one month) smoker, HTN, HLP, family history of CAD, obesity. Risk Scores: Score 0 - 3: 2.5% MACE over next 6 weeks - Discharge Home Score 4 - 6: 20.3% MACE over next 6 weeks - Admit for Clinical Observation Score 7 - 10: 72.7% MACE over next 6 weeks - Early Invasive Strategies Current Medications: Current Medications Medications (Trade) Dose Ordered Sig/Radha Start Time Stop Time Status Last Admin Dose Admin Insulin Human Regular (HumuLIN R VIAL) 10 unit 1X ONCE 07/11/20 23:15 07/11/20 23:16 DC 07/12/20 00:00 10 UNIT Sodium Chloride 1,000 ml @ 1,000 mls/hr 1X ONCE 07/11/20 23:15 07/12/20 00:14 DC 11/17/20 00:01 1,000 MLS/HR Allergies: Allergies: Allergies Coded Allergies Type Severity Reaction Last Updated Verified No Known Drug Allergies 02/17/16 No Physical Exam: PE: Constitutional: Well developed, well nourished, no acute distress, non-toxic appearance. [] HENT: Normocephalic, atraumatic, bilateral external ears normal, oropharynx moist, no oral exudates, nose normal. [] Eyes: PERRLA, EOMI, conjunctiva normal, no discharge. [] Neck: Normal range of motion, no tenderness, supple, no stridor. [] Cardiovascular:Heart rate regular rhythm, no murmur [] Lungs & Thorax: Bilateral breath sounds clear to auscultation [] Abdomen: Bowel sounds normal, soft, no tenderness, no masses, no pulsatile masses. [] Skin: Warm, dry, no erythema, no rash. [] Back: No tenderness, no CVA tenderness. [] Extremities: No tenderness, no cyanosis, no clubbing, ROM intact, no edema. [] Neurologic: Alert and oriented X 3, normal motor function, normal sensory function, no focal deficits noted. [] Psychologic: Affect normal, judgement normal, mood normal. [] Current Patient Data: Labs: Laboratory Tests Test 07/11/20 23:05 07/12/20 00:05 White Blood Count 6.0 x10^3/uL (4.0-11.0) Red Blood Count 4.84 x10^6/uL (4.30-5.70) Hemoglobin 14.9 g/dL (13.0-17.5) Hematocrit 43.9 % (39.0-53.0) Mean Corpuscular Volume 91 fL (79-100) Mean Corpuscular Hemoglobin 31 pg (25-35) Mean Corpuscular Hemoglobin Concent 34 g/dL (31-37) Red Cell Distribution Width 12.7 % (11.5-14.5) Platelet Count 268 x10^3/uL (140-400) Neutrophils (%) (Auto) 47 % (31-73) Lymphocytes (%) (Auto) 38 % (24-48) Monocytes (%) (Auto) 8 % (0-9) Eosinophils (%) (Auto) 6 % (0-3) H Basophils (%) (Auto) 1 % (0-3) Neutrophils # (Auto) 2.8 x10^3/uL (1.8-7.7) Lymphocytes # (Auto) 2.3 x10^3/uL (1.0-4.8) Monocytes # (Auto) 0.5 x10^3/uL (0.0-1.1) Eosinophils # (Auto) 0.4 x10^3/uL (0.0-0.7) Basophils # (Auto) 0.0 x10^3/uL (0.0-0.2) Sodium Level 134 mmol/L (136-145) L Potassium Level 5.0 mmol/L (3.5-5.1) Chloride Level 97 mmol/L (98-107) L Carbon Dioxide Level 28 mmol/L (21-32) Anion Gap 9 (6-14) Blood Urea Nitrogen 18 mg/dL (8-26) Creatinine 1.2 mg/dL (0.7-1.3) Estimated GFR (Cockcroft-Gault) 65.5 BUN/Creatinine Ratio 15 (6-20) Glucose Level 437 mg/dL (70-99) H Calcium Level 9.4 mg/dL (8.5-10.1) Magnesium Level 1.8 mg/dL (1.8-2.4) Total Bilirubin 0.3 mg/dL (0.2-1.0) Aspartate Amino Transferase (AST) 19 U/L (15-37) Alanine Aminotransferase (ALT) 29 U/L (16-63) Alkaline Phosphatase 149 U/L (46-116) H Total Protein 7.2 g/dL (6.4-8.2) Albumin 3.5 g/dL (3.4-5.0) Albumin/Globulin Ratio 0.9 (1.0-1.7) L Acetone Level Neg (NEG) Urine Collection Type Unknown Urine Color Yellow Urine Clarity Clear Urine pH 7.5 (<5.0-8.0) Urine Specific [place] 1.020 (1.000-1.030) Urine Protein Negative mg/dL (NEG-TRACE) Urine Glucose (UA) >=1000 mg/dL (NEG) Urine Ketones (Stick) Negative mg/dL (NEG) Urine Blood Negative (NEG) Urine Nitrite Negative (NEG) Urine Bilirubin Negative (NEG) Urine Urobilinogen Dipstick 0.2 mg/dL (0.2 mg/dL) Urine Leukocyte Esterase Negative (NEG) Urine RBC 0 /HPF (0-2) Urine WBC 0 /HPF (0-4) Urine Squamous Epithelial Cells Occ /LPF Urine Bacteria 0 /HPF (0-FEW) Laboratory Tests 07/11/20 23:05 Laboratory Tests 07/11/20 23:05 Vital Signs: Vital Signs Date Time Temp Pulse Resp B/P (MAP) Pulse Ox O2 Delivery O2 Flow Rate FiO2 07/11/20 21:39 97.2 78 14 167/81 (109) Room Air 97.2 EKG: EKG: [] Radiology/Procedures: Radiology/Procedures: [] Course & Med Decision Making: Course & Med Decision Making Pertinent Labs and Imaging studies reviewed. (See chart for details) Patient is a 45-year-old male who presented to ER for evaluation of high blood sugar. Patient has history of diabetic, he is on medication and insulin for. Patient blood sugar was elevated at home, when he got here his blood sugar was 448. Patient was given 1 L normal saline and insulin in the ER, his blood sugar was rechecked and it was 250. Patient will be discharged home, he will need to follow-up with his family physician for reevaluation. Patient is amenable to plan of care. Go Disclaimer: Dragon Disclaimer: This electronic medical record was generated, in whole or in part, using a voice recognition dictation system. Departure Departure Impression: Primary Impression: Hyperglycemia Disposition: 01 DC HOME SELF CARE/HOMELESS Condition: IMPROVED Referrals: MILAN GUARDADO MD (PCP) please follow up with your doctor this week for reevaluation Patient Instructions: Hyperglycemia Additional Instructions: Thank you for visiting our Emergency Department. We appreciate you trusting us with your care. If any additional problems come up don't hesitate to return to visit us. Please follow up with your primary care provider so they can plan additional care if needed and know about the problem that you had. If symptoms worsen come back to the Emergency Department. Any concerning symptoms that start such as chest pain, shortness of air, weakness or numbness on one side of the b kade, running high fevers or any other concerning symptoms return to the ER. KRYS SALCIDO DO Jul 12, 2020 01:18
== END 2020-07-12 01:38 | disposition home or self-care (01) ==
LOC: ER 21:36
DX: E11.65 Type 2 diabetes mellitus with hyperglycemia (principal); E78.00 Pure hypercholesterolemia, unspecified; I10 Essential (primary) hypertension; Z87.891 Personal history of nicotine dependence; Z98.890 Other specified postprocedural states
CPT/HCPCS: 36415; 80053; 81001; 82010; 82962; 83735; 85025; 96361; 96374; 99283; J1815; J7030

== ENCOUNTER 2021-02-20 20:47 | Observation (INO) | payer BC, OTHER ==
[~2021-02-20] VITALS: Ht 190.5 cm; Wt 127.0 kg
[~2021-02-20 20:47] MED LIST changes: +LISI10TA16 PO; -LISI10TA2 PO; -OMEP40CA45 PO; +OMEP40CA7 PO
[2021-02-20] MEDS ORDERED: IOHEXOL 300 MG/ML 100ML VIAL. IV ONE ×2 (21:30→22:15)
[2021-02-20] MEDS ORDERED: CONTRAST GIVEN. MC PRN (21:45)
[2021-02-20 21:52] LABS: BASO % 1 % (0-3); EOS # 0.3 x10^3/uL (0.0-0.7); EOS % 5 % (0-3); HEMATOCRIT 45.4 % (39.0-53.0); HEMOGLOBIN 15.5 g/dL (13.0-17.5); LYMPH # 2.1 x10^3/uL (1.0-4.8); LYMPH % 29 % (24-48); MEAN CORPUSCULAR HEMOGLOBIN 31 pg (25-35); MEAN CORPUSCULAR HGB CONC 34 g/dL (31-37); MEAN CORPUSCULAR VOLUME 91 fL (79-100); MONO # 0.5 x10^3/uL (0.0-1.1); MONO % 7 % (0-9); NEUT # 4.2 x10^3/uL (1.8-7.7); NEUT % 58 % (31-73); PLATELET COUNT 256 x10^3/uL (140-400); RED BLOOD COUNT 4.97 x10^6/uL (4.30-5.70); RED CELL DISTRIBUTION WIDTH 12.9 % (11.5-14.5); WHITE BLOOD COUNT 7.2 x10^3/uL (4.0-11.0)
[2021-02-20 22:01] LABS: CALCIUM 9.1 mg/dL (8.5-10.1); CREATININE 1.2 mg/dL (0.7-1.3); GFR 65.5; POTASSIUM 4.1 mmol/L (3.5-5.1)
[2021-02-20 22:06] LABS: ALBUMIN 3.6 g/dL (3.4-5.0); TOTAL BILIRUBIN 0.7 mg/dL (0.2-1.0); TOTAL PROTEIN 7.2 g/dL (6.4-8.2)
[2021-02-20] MEDS ORDERED: IV NORMAL SALINE 1000ML BAG 1,000 ML IV ONE (22:15)
[2021-02-20] MEDS ORDERED: MORPHINE SULFATE 4 MG/ML INJ. IV ONE ×2 (22:15→23:45)
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
[2021-02-20] MEDS ORDERED: cloNIDine HCL 0.1 MG TABLET PO ONE (23:45)
[2021-02-20] MEDS ORDERED: ONDANSETRON PF 4 MG/2 ML VIAL. IV PRN (23:45)
[2021-02-20] MEDS ORDERED: INSULIN REGULAR 100 UNIT/ML 3ML VIAL. IV ONE (23:45)
[2021-02-21] MEDS: MORPHINE SULFATE 4 MG/ML INJ. IV PRN ×5 (03:22→21:07)
[2021-02-21 07:00] VITALS: BP 108/79
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
[2021-02-21] MEDS ORDERED: clonazePAM 0.5 MG TABLET PO PRN (09:45)
--- NOTE | 2021-02-21 09:52 | PDOC ---
PULMONARY PROGRESS NOTES DATE: 02/21/21 TIME: 09:49 Vitals Vital Signs Date Time Temp Pulse Resp B/P (MAP) Pulse Ox O2 Delivery O2 Flow Rate FiO2 02/21/21 07:00 97.4 72 17 108/79 (89) 94 Room Air 97.4 Lungs: Clear Labs Laboratory Tests Test 02/20/21 21:45 02/21/21 08:14 White Blood Count 7.2 x10^3/uL (4.0-11.0) Red Blood Count 4.97 x10^6/uL (4.30-5.70) Hemoglobin 15.5 g/dL (13.0-17.5) Hematocrit 45.4 % (39.0-53.0) Mean Corpuscular Volume 91 fL (79-100) Mean Corpuscular Hemoglobin 31 pg (25-35) Mean Corpuscular Hemoglobin Concent 34 g/dL (31-37) Red Cell Distribution Width 12.9 % (11.5-14.5) Platelet Count 256 x10^3/uL (140-400) Neutrophils (%) (Auto) 58 % (31-73) Lymphocytes (%) (Auto) 29 % (24-48) Monocytes (%) (Auto) 7 % (0-9) Eosinophils (%) (Auto) 5 % (0-3) Basophils (%) (Auto) 1 % (0-3) Neutrophils # (Auto) 4.2 x10^3/uL (1.8-7.7) Lymphocytes # (Auto) 2.1 x10^3/uL (1.0-4.8) Monocytes # (Auto) 0.5 x10^3/uL (0.0-1.1) Eosinophils # (Auto) 0.3 x10^3/uL (0.0-0.7) Basophils # (Auto) 0.0 x10^3/uL (0.0-0.2) Sodium Level 138 mmol/L (136-145) Potassium Level 4.1 mmol/L (3.5-5.1) Chloride Level 99 mmol/L (98-107) Carbon Dioxide Level 28 mmol/L (21-32) Anion Gap 11 (6-14) Blood Urea Nitrogen 23 mg/dL (8-26) Creatinine 1.2 mg/dL (0.7-1.3) Estimated GFR (Cockcroft-Gault) 65.5 BUN/Creatinine Ratio 19 (6-20) Glucose Level 437 mg/dL (70-99) Calcium Level 9.1 mg/dL (8.5-10.1) Total Bilirubin 0.7 mg/dL (0.2-1.0) Aspartate Amino Transf (AST/SGOT) 22 U/L (15-37) Alanine Aminotransferase (ALT/SGPT) 37 U/L (16-63) Alkaline Phosphatase 156 U/L (46-116) Total Protein 7.2 g/dL (6.4-8.2) Albumin 3.6 g/dL (3.4-5.0) Albumin/Globulin Ratio 1.0 (1.0-1.7) Glucose (Fingerstick) 264 mg/dL (70-99) Laboratory Tests Test 02/20/21 21:45 02/21/21 08:14 White Blood Count 7.2 x10^3/uL (4.0-11.0) Red Blood Count 4.97 x10^6/uL (4.30-5.70) Hemoglobin 15.5 g/dL (13.0-17.5) Hematocrit 45.4 % (39.0-53.0) Mean Corpuscular Volume 91 fL (79-100) Mean Corpuscular Hemoglobin 31 pg (25-35) Mean Corpuscular Hemoglobin Concent 34 g/dL (31-37) Red Cell Distribution Width 12.9 % (11.5-14.5) Platelet Count 256 x10^3/uL (140-400) Neutrophils (%) (Auto) 58 % (31-73) Lymphocytes (%) (Auto) 29 % (24-48) Monocytes (%) (Auto) 7 % (0-9) Eosinophils (%) (Auto) 5 % (0-3) Basophils (%) (Auto) 1 % (0-3) Neutrophils # (Auto) 4.2 x10^3/uL (1.8-7.7) Lymphocytes # (Auto) 2.1 x10^3/uL (1.0-4.8) Monocytes # (Auto) 0.5 x10^3/uL (0.0-1.1) Eosinophils # (Auto) 0.3 x10^3/uL (0.0-0.7) Basophils # (Auto) 0.0 x10^3/uL (0.0-0.2) Sodium Level 138 mmol/L (136-145) Potassium Level 4.1 mmol/L (3.5-5.1) Chloride Level 99 mmol/L (98-107) Carbon Dioxide Level 28 mmol/L (21-32) Anion Gap 11 (6-14) Blood Urea Nitrogen 23 mg/dL (8-26) Creatinine 1.2 mg/dL (0.7-1.3) Estimated GFR (Cockcroft-Gault) 65.5 BUN/Creatinine Ratio 19 (6-20) Glucose Level 437 mg/dL (70-99) Calcium Level 9.1 mg/dL (8.5-10.1) Total Bilirubin 0.7 mg/dL (0.2-1.0) Aspartate Amino Transf (AST/SGOT) 22 U/L (15-37) Alanine Aminotransferase (ALT/SGPT) 37 U/L (16-63) Alkaline Phosphatase 156 U/L (46-116) Total Protein 7.2 g/dL (6.4-8.2) Albumin 3.6 g/dL (3.4-5.0) Albumin/Globulin Ratio 1.0 (1.0-1.7) Glucose (Fingerstick) 264 mg/dL (70-99) Medications Active Scripts Medications Dose Route/Sig Max Daily Dose Days Date Category Amlodipine Besylate 5 Mg Tablet 5 Mg PO DAILY 10/13/19 Reported Irbesartan 150 Mg Tablet 150 Mg PO DAILY 10/13/19 Reported Humalog (Insulin Lispro) 100 Unit/1 Ml Vial 0-15 Unit SQ QIDACHS 06/30/19 Reported Clonazepam (Clonazepam) 0.5 Mg Tablet 0.5 Mg PO PRN BID PRN 01/13/19 Reported Aspirin 81 Mg Tab.chew 81 Mg PO DAILY 30 11/18/17 Reported Ambien (Zolpidem Tartrate) 10 Mg Tablet 10 Mg PO HS PRN 02/16/16 Reported Simvastatin 40 Mg Tablet 20 Mg PO QHS MDD 04/28/15 Reported Impression . Full consult dictated Traumatic pneumothorax Repeat chest x-ray No respiratory distress See orders ROSA MARIA GARCIA MD Feb 21, 2021 09:52
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
[2021-02-21] MEDS: LOSARTAN POTASSIUM 50 MG TABLET. PO SCH (10:40)
[2021-02-21] MEDS: ASPIRIN CHEWABLE 81 MG TABLET. PO SCH (10:40)
[2021-02-21] MEDS: INSULIN LISPRO 300 UNITS/3 ML VIAL. SQ SCH ×3 (10:47→21:15)
[2021-02-21 11:00] VITALS: BP 114/71
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
[2021-02-21 15:05] VITALS: BP 122/75
--- NOTE | 2021-02-21 16:35 | RAD ---
XR CHEST 1V History: Reason: ptx / Spl. Instructions: / History: Comparison: February 21, 2021 Findings: Subcutaneous gas projecting over the right upper chest as seen on prior CT, unchanged. Linear bibasil ar opacities, similar compared to prior. Prior granulous disease within the chest. No pleural effusio n. No pneumothorax. Unchanged heart size. Right-sided rib fractures better characterized on prior CT. Impression: 1. Unchanged right upper chest wall subcutaneous gas. No pneumothorax. 2. Bibasilar linear opacities, likely atelectasis. Electronically signed by: Joe Radford DO (02/21/2021 4:32 PM) [facility]
[2021-02-21] MEDS: oxyCODONE/APAP 5/325 1 TAB TABLET PO PRN (18:20)
[2021-02-21 19:00] VITALS: BP 144/74
--- NOTE | 2021-02-21 19:15 | NUR ---
Report was given to Francesca, pt was transferred to room 422, pt is stable, pain medicine given before transfer. All belongings left at time of transfer with patient.
--- NOTE | 2021-02-21 19:16 | NUR ---
Pt transferred at 183
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
[2021-02-21] MEDS ORDERED: ATORVASTATIN CALCIUM 10 MG TABLET. PO SCH (21:00)
[2021-02-21] MEDS: ZOLPIDEM 5 MG TABLET. PO PRN (21:06)
[2021-02-21 23:26] VITALS: BP 123/77
[2021-02-22] MEDS: ZOLPIDEM 5 MG TABLET. PO PRN (00:02)
[2021-02-22 03:14] VITALS: BP 119/77
[2021-02-22 07:00] VITALS: BP 128/90
[2021-02-22] MEDS: oxyCODONE/APAP 5/325 1 TAB TABLET PO PRN (08:55)
[2021-02-22] MEDS: LOSARTAN POTASSIUM 50 MG TABLET. PO SCH (08:56)
[2021-02-22] MEDS: ASPIRIN CHEWABLE 81 MG TABLET. PO SCH (08:56)
[2021-02-22] MEDS: INSULIN LISPRO 300 UNITS/3 ML VIAL. SQ SCH ×2 (09:04→12:31)
--- NOTE | 2021-02-22 09:19 | RAD ---
EXAM: Chest, single view. HISTORY: Pneumothorax. COMPARISON: 02/21/2021. FINDINGS: A frontal view of the chest is obtained. The recently demonstrated tiny right apical pneumo thorax and displaced right third and fourth rib fractures are not well seen on this exam. There has b een interval decrease in soft tissue emphysema along the right chest wall. There is no convincing pne umothorax. There is lingular and right perihilar linear atelectasis or scarring. There is no pleural effusion. There are calcified granulomas. The heart is normal in size. IMPRESSION: 1. Right perihilar and lingular linear atelectasis or scarring. 2. No convincing pneumothorax to correspond with a tiny apical pneumothorax demonstrated on a CT perf ormed 02/20/2021. The right rib fractures demonstrated on the prior CT are also not well seen radiogra phically. Electronically signed by: Zoila Casanova MD (02/22/2021 9:17 AM) [id number]
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
--- NOTE | 2021-02-22 10:19 | NUR ---
SW following. Discussed with RN, discharge order for home with self care. RN advised no SW needs.
[2021-02-22 11:00] VITALS: BP 127/75
--- NOTE | 2021-02-22 13:30 | NUR ---
Discharge Note: WILIAM NAVARRO Discharge instructions and discharge home medications reviewed with Patient and a copy given. All questions have been answered and understanding verbalized. The following instructions and handouts were given: Diet, activity, medication list and follow up instructions provided to patient. Discontinued lines and drains: Peripheral IV discontinued and catheter intact. Patient discharged to Home or Self Care with Self via Ambulated
--- NOTE | 2021-03-01 14:27 | NUR ---
NaCl started at 23:05 on 02/20/21--stop time 00:05 on 02/21/21
== END 2021-02-22 13:20 | disposition home or self-care (01) ==
LOC: ER 20:47 → ED HOLD 23:30 → 4 NORTH 02-21 19:00
PROVIDERS: ADMIT Family Medicine; ATTEND Family Medicine
DX: S27.0XXA Traumatic pneumothorax, initial encounter (principal); S22.41XA Multiple fractures of ribs, right side, initial encounter for closed fracture; S27.321A Contusion of lung, unilateral, initial encounter; T79.7XXA Traumatic subcutaneous emphysema, initial encounter; I10 Essential (primary) hypertension; E10.65 Type 1 diabetes mellitus with hyperglycemia; E78.00 Pure hypercholesterolemia, unspecified; E78.5 Hyperlipidemia, unspecified; E78.2 Mixed hyperlipidemia; Z79.82 Long term (current) use of aspirin; Z79.4 Long term (current) use of insulin; Z87.891 Personal history of nicotine dependence; Y04.0XXA Assault by unarmed brawl or fight, initial encounter; Y93.89 Activity, other specified; Y92.89 Other specified places as the place of occurrence of the external cause; Y99.8 Other external cause status
CPT/HCPCS: 36415; 71045; 71260; 74177; 80053; 82962; 85025; 96361; 96372; 96374; 96375; 96376; 99285; G0238; G0378; J1815; J2270; J7030; Q9967; G0379

== ENCOUNTER 2021-03-11 21:49 | Emergency (ER) | payer SELFPAY ==
[~2021-03-11] VITALS: Ht 190.5 cm; Wt 125.0 kg
[2021-03-12 01:05] LABS: BASO # 0.1 x10^3/uL (0.0-0.2); BASO % 1 % (0-3); EOS # 0.5 x10^3/uL (0.0-0.7); EOS % 6 % (0-3); HEMATOCRIT 39.5 % (39.0-53.0); HEMOGLOBIN 13.4 g/dL (13.0-17.5); LYMPH # 2.8 x10^3/uL (1.0-4.8); LYMPH % 34 % (24-48); MEAN CORPUSCULAR HEMOGLOBIN 31 pg (25-35); MEAN CORPUSCULAR HGB CONC 34 g/dL (31-37); MEAN CORPUSCULAR VOLUME 91 fL (79-100); MONO # 0.6 x10^3/uL (0.0-1.1); MONO % 8 % (0-9); NEUT # 4.3 x10^3/uL (1.8-7.7); NEUT % 52 % (31-73); PLATELET COUNT 266 x10^3/uL (140-400); RED BLOOD COUNT 4.36 x10^6/uL (4.30-5.70); RED CELL DISTRIBUTION WIDTH 13.1 % (11.5-14.5); WHITE BLOOD COUNT 8.3 x10^3/uL (4.0-11.0)
--- NOTE | 2021-03-12 01:21 | PHYS DOC ---
Past Medical History Past Medical History: Diabetes-Type I, High Cholesterol, Hypertension Additional Past Medical Histor: PNEUMOTHORAX Past Surgical History: Other Additional Past Surgical Histo: SHOULDER X 6, r knee meniscus shaved Smoking Status: Never Smoker Additional Information: CHEWS [place]AC[place] Alcohol Use: None Drug Use: None General Adult EDM: Chief Complaint: CHEST WALL PAIN HPI: HPI: 45-year-old male past medical history of diabetes, hypertension, hyperlipidemia with recent admission to the hospital 2 weeks ago, presents to the ED with complaints of shortness of breath and focal chest pain, states his breathing bec omes worse with exertion. Reports recent rib fractures and pneumothorax when admitted, location of pain is similar to prior injury. Denies any repeat injury, no anticoagulants. No known history of Covid. Review of Systems: Review of Systems: Constitutional: Denies fever or chills. [] Eyes: Denies change in visual acuity. [] HENT: Denies nasal congestion or sore throat. [] Respiratory: Denies cough or increased work of breathing Cardiovascular: Denies abscess or syncope GI: Denies abdominal pain, nausea, vomiting, : Denies dysuria or hematuria Musculoskeletal: Denies back pain or joint pain. [] Integument: Denies rash or diaphoresis Neurologic: Denies headache, focal weakness or sensory changes. [] Endocrine: Denies polyuria or polydipsia. [] Lymphatic: Denies swollen glands. [] Psychiatric: Denies depression or anxiety. [] Heart Score: C/O Chest Pain: Yes HEART Score for Chest Pain: HEART Score for Chest Pain Response (Comments) Value History Slighlty/Non-Suspicious 0 ECG Normal 0 Age < 45 0 Risk Factors >3 Risk Factors or Hx CAD 2 Troponin < Normal Limit 0 Total 2 Risk Factors: Risk Factors: DM, Current or recent (<one month) smoker, HTN, HLP, family history of CAD, obesity. Risk Scores: Score 0 - 3: 2.5% MACE over next 6 weeks - Discharge Home Score 4 - 6: 20.3% MACE over next 6 weeks - Admit for Clinical Observation Score 7 - 10: 72.7% MACE over next 6 weeks - Early Invasive Strategies Allergies: Allergies: Allergies Coded Allergies Type Severity Reaction Last Updated Verified No Known Drug Allergies 02/17/16 No Physical Exam: PE: Constitutional: Well developed, well nourished, no acute distress, non-toxic appearance. HENT: Normocephalic, atraumatic, Eyes: EOMI, conjunctiva normal, no discharge. Neck: Normal range of motion, supple, Cardiovascular: S1/2 present, regular rhythm, chest wall tenderness over right parasternal location approximately ribs 3/4/5, no flail chest, no subcutaneous emphysema Lungs & Thorax: Speaking in full sentences, bilateral equal chest rise, no tachypnea or increased work of breathing Abdomen: soft, no tenderness, Skin: Warm, dry, no erythema, no rash. [] Extremities: No tenderness, no cyanosis, no lower extremity edema Neurologic: Alert and oriented X 3, normal motor function, normal sensory function, no focal deficits noted. [] Psychologic: Affect normal, judgement normal, mood normal. [] Current Patient Data: Labs: Laboratory Tests Test 03/12/21 00:51 White Blood Count 8.3 x10^3/uL (4.0-11.0) Red Blood Count 4.36 x10^6/uL (4.30-5.70) Hemoglobin 13.4 g/dL (13.0-17.5) Hematocrit 39.5 % (39.0-53.0) Mean Corpuscular Volume 91 fL (79-100) Mean Corpuscular Hemoglobin 31 pg (25-35) Mean Corpuscular Hemoglobin Concent 34 g/dL (31-37) Red Cell Distribution Width 13.1 % (11.5-14.5) Platelet Count 266 x10^3/uL (140-400) Neutrophils (%) (Auto) 52 % (31-73) Lymphocytes (%) (Auto) 34 % (24-48) Monocytes (%) (Auto) 8 % (0-9) Eosinophils (%) (Auto) 6 % (0-3) H Basophils (%) (Auto) 1 % (0-3) Neutrophils # (Auto) 4.3 x10^3/uL (1.8-7.7) Lymphocytes # (Auto) 2.8 x10^3/uL (1.0-4.8) Monocytes # (Auto) 0.6 x10^3/uL (0.0-1.1) Eosinophils # (Auto) 0.5 x10^3/uL (0.0-0.7) Basophils # (Auto) 0.1 x10^3/uL (0.0-0.2) Laboratory Tests 03/12/21 00:51 Vital Signs: Vital Signs Date Time Temp Pulse Resp B/P (MAP) Pulse Ox O2 Delivery O2 Flow Rate FiO2 03/11/21 21:50 98.2 80 18 146/86 97 Room Air 98.2 EKG: EKG: Sinus rhythm 71 bpm, right axis deviation, T wave inversion V2, no ST elevations or ST depressions Radiology/Procedures: Radiology/Procedures: []IMAGING REPORT Signed PATIENT: WILIAM NAVARRO ACCOUNT: [id number] : 1975 LOCATION: ER AGE: 45 SEX: M EXAM STATUS: REG ER ORD. PHYSICIAN: FROYLAN MACHADO DO REASON: cp, soa, r/o pe;OMNI 350, 100ML PROCEDURE: CT ANGIOGRAPHY CHEST CTA CHEST INDICATION: cp, soa, r/o pe Comparison: None. TECHNIQUE: Following the uneventful administration of intravenous contrast, 100 cc Omnipaque 350, axial CT sections were obtained through the lungs and upper abdomen. Multiplanar reconstructions and MIP images were obtained. PQRS compliance statement: One or more of the following individualized dose reduction techniques were utilized for this examination: 1. Automated exposure control 2. Adjustment of the mA and/or kV according to patient size 3. Use of iterative reconstruction technique FINDINGS: Pulmonary arteries: No evidence of pulmonary thromboembolic disease. Lungs and Airways: No pulmonary mass or consolidation. No abnormality of the central airways. Pleura: The pleural spaces are normal. Heart and Mediastinum: The visualized thyroid is normal in size and attenuation. No axillary or supraclavicular lymphadenopathy. No mediastinal, hilar or retrocrural lymphadenopathy. The heart and pericardium are within normal limits. The great vessels of the thorax are normal. Abdomen: Limited images through the upper abdomen show no abnormality of the visualized organs. Bones and Soft Tissues: Degenerative changes of the spine. IMPRESSION: 1. No evidence of pulmonary thromboembolic disease. 2. No pulmonary mass or consolidation. Electronically signed by: Milan Marin MD (03/12/2021 2:28 AM) [facility] DICTATED and SIGNED BY: MILAN MARIN MD DATE: 03/12/21 [id number] 0 Course & Med Decision Making: Course & Med Decision Making Pertinent Labs and Imaging studies reviewed. (See chart for details) Concern for localized chest wall pain after blunt trauma, likely residual chest pain from initial injury. CTA with no signs of pulmonary embolus or infiltrates. Patient denies any new trauma. Patient symptoms present for more than 2 and half weeks. Troponin negative. Suspect more musculoskeletal versus neuropathic pain. Will discharge home with strict ED return precautions were given for syncope, neurologic deficits, chest pressure or hemoptysis. Encouraged urgent outpatient follow-up with PMD and audiology for nonemergent evaluation of chest pain. Life-threatening processes were considered but are low suspicion at this time, given history, physical exam and ED workup. Pt was educated on all prescription medications and adverse effects. All patient's questions were answered and pt was stable at time of discharge. Life/limb-threatening differential includes but is not limited to, acute myocardial infarction, aortic dissection, congestive heart failure, esophageal injury including rupture, surgical abdomen, arrhythmia, cardiomyopathy, myocarditis, pericarditis, peptic ulcer disease, pneumomediastinum, pneumonia, pneumothorax, pulmonary embolus, unstable angina, rib fracture, contusion, pericardial tamponade or effusion, traumatic injury including mediastinal hemorrhage or hematoma, or pulmonary contusion. I have spoken with the patient and/or caregivers. I explained the patient's condition, diagnoses and treatment plan based on the information available to me at this time. I have answered the patient and/or caregiver's questions and addressed any concerns. The patient and/or caregivers have a good understanding of patient's diagnosis, condition and treatment plan as can be expected at this point. Vital signs have been stable. Patient's condition is stable and appropriate for discharge from the emergency department. Patient will pursue further outpatient evaluation with primary care physician or other designated or consulting physician as outlined in the discharge instructions. The patient and/or caregivers are agreeable to this plan of care and follow-up instructions have been explained in detail. The patient and/or caregivers have received these instructions in written form and have expressed an understanding of the discharge instructions. The patient and/or caregivers are aware that any significant change of condition or worsening of symptoms should prompt immediate return to this or the closest emergency department or call to 911. Go Disclaimer: Go Disclaimer: This electronic medical record was generated, in whole or in part, using a voice recognition dictation system. Departure Departure Impression: Primary Impression: Chronic chest wall pain Additional Impression: Hyperglycemia Disposition: HOME / SELF CARE / HOMELESS Condition: STABLE Referrals: MILAN GUARDADO MD (PCP) Follow-up with your primary care physician in 24 to 48 hours OR FOLLOW UP WITH FAMILY MEDICINE: [address] [place] [address] Patient Instructions: Chest Wall Pain, Hyperglycemia Additional Instructions: FOLLOW UP WITH CARDIOLOGY: FOR DEFINITIVE MANAGEMENT of chest pain [facility] [address] [place] [address] EMERGENCY DEPARTMENT GENERAL DISCHARGE INSTRUCTIONS Thank you for coming to [facility] Emergency Department (ED) today and trusting us with you care. We trust that you had a positive experience in our Emergency Department. If you wish to speak to the department management, you may call the Director at [phone]. YOUR FOLLOW UP INSTRUCTIONS ARE FOLLOWS: 1. Do you have a private Doctor? If you do not have a private doctor, please ask for a resource list of physicians or clinics that may be able to assist you with follow up care. 2. The Emergency Physicain has interpreted your x-rays. The X-Ray specialist will also review them. If there is a change in the findings, you will be notified in 48 hours when at all possible. 3. A lab test or culture has been done, your results will be reviewed and you will be notified if you need a change in treatment. ADDITIONAL INSTRUCTIONS AND INFORMATION: 1. Your care today has been supervised by a physician who is specially trained in emergency care. Many problems require more than one evaluation for a complete diagnosis and treatment. We recommend that you schedule your follow up appointment as recommended to ensure complete treatment of you illness or injury. If you are unable to obtain follow up care and continue to have a problem, or if your condition worsens, we recommend that you return to the ED. 2. We are not able to safely determine your condition over the phone nor are we able to give sound medical advice over the phone. For these safety reasons, if you call for medical advice we will ask you to come to the ED for further evaluation. 3. If you have any questions regarding these discharge instructions please call the ED at [phone]. SAFETY INFORMATION: In the interest of safety, wellness, and injury prevention; we encourage you to wear your sealbelt, if you smoke; quite smoking, and we encourage family to use a protective helmet for bicycling and other sporting events that present an increased risk for head injury. IF YOUR SYMPTOMS WORSEN OR NEW SYMPTOMS DEVELOP, OR YOU HAVE CONCERNS ABOUT YOUR CONDITION; OR IF YOUR CONDITION WORSENS WHILE YOU ARE WAITING FOR YOUR FOLLOW UP APPOINTMENT; EITHER CONTACT YOUR PRIMARY CARE DOCTOR, THE PHYSICIAN WHOSE NAME AND NUMBER YOU WERE GIVEN, OR RETURN TO THE ED IMMEDIATELY. Scripts Lidocaine (Lido Gt) 1 Each Adh..patch 1 EACH TP DAILY for 5 Days, #5 PATCH Apply 1 patch for 12 hours, remove for another 12 hours. May repeat, 1 patch per day as instructed above. Prov: FROYLAN MACHADO DO 03/12/21 FROYLAN MACHADO DO Mar 12, 2021 01:21
[2021-03-12 01:23] LABS: CALCIUM 8.7 mg/dL (8.5-10.1); CREATININE 1.1 mg/dL (0.7-1.3); GFR 72.4; POTASSIUM 3.5 mmol/L (3.5-5.1)
[2021-03-12 01:25] VITALS: BP 153/83
--- NOTE | 2021-03-12 01:27 | EKG ---
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
[2021-03-12 01:28] LABS: ALBUMIN 3.1 g/dL (3.4-5.0); ALBUMIN/GLOBULIN RATIO 0.9 (1.0-1.7); MAGNESIUM 1.8 mg/dL (1.8-2.4); TOTAL BILIRUBIN 0.3 mg/dL (0.2-1.0); TOTAL PROTEIN 6.5 g/dL (6.4-8.2)
[2021-03-12] MEDS ORDERED: CONTRAST GIVEN. MC PRN (01:45)
[2021-03-12] MEDS ORDERED: IOHEXOL 350 MG/ML 100 ML VIAL. IV ONE (02:00)
[2021-03-12] MEDS ORDERED: fentaNYL PF VIAL 100 MCG/2 ML VIAL IVP ONE (02:15)
--- NOTE | 2021-03-12 02:31 | RAD ---
CTA CHEST INDICATION: cp, soa, r/o pe Comparison: None. TECHNIQUE: Following the uneventful administration of intravenous contrast, 100 cc Omnipaque 350, axi al CT sections were obtained through the lungs and upper abdomen. Multiplanar reconstructions and MIP images were obtained. RS compliance statement: One or more of the following individualized dose reduction techniques were utilized for this examinat ion: 1. Automated exposure control 2. Adjustment of the mA and/or kV according to patient size 3. Use of iterative reconstruction technique FINDINGS: Pulmonary arteries: No evidence of pulmonary thromboembolic disease. Lungs and Airways: No pulmonary mass or consolidation. No abnormality of the central airways. Pleura: The pleural spaces are normal. Heart and Mediastinum: The visualized thyroid is normal in size and attenuation. No axillary or supra clavicular lymphadenopathy. No mediastinal, hilar or retrocrural lymphadenopathy. The heart and peric ardium are within normal limits. The great vessels of the thorax are normal. Abdomen: Limited images through the upper abdomen show no abnormality of the visualized organs. Bones and Soft Tissues: Degenerative changes of the spine. IMPRESSION: 1. No evidence of pulmonary thromboembolic disease. 2. No pulmonary mass or consolidation. Electronically signed by: Ji Marin MD (03/12/2021 2:28 AM) [facility]
[2021-03-12] MEDS ORDERED: LIDO1ADH78 TP (04:53)
[2021-03-12] MEDS ORDERED: LIDOCAINE (700MG/PATCH) PATCH. TD ONE (05:00)
== END 2021-03-12 06:40 | disposition home or self-care (01) ==
LOC: ER 21:49
DX: G89.29 Other chronic pain (principal); R07.89 Other chest pain; E10.65 Type 1 diabetes mellitus with hyperglycemia; R06.02 Shortness of breath; E78.00 Pure hypercholesterolemia, unspecified; I10 Essential (primary) hypertension; F17.220 Nicotine dependence, chewing tobacco, uncomplicated
CPT/HCPCS: 36415; 71275; 80053; 83690; 83735; 83880; 84484; 85025; 93005; 96374; 99285; J3010; Q9967

== ENCOUNTER 2021-07-24 16:54 | Emergency (ER) | payer SELFPAY ==
[~2021-07-24] VITALS: Ht 190.5 cm; Wt 140.0 kg
[~2021-07-24 16:54] MED LIST changes: +LIDO1ADH78 TP
--- NOTE | 2021-07-24 19:26 | PHYS DOC ---
Past Medical History Past Medical History: Diabetes-Type I, High Cholesterol, Hypertension Additional Past Medical Histor: PNEUMOTHORAX,SHATTERED CHEEK 06/26/21 ([employer]) Past Surgical History: Other Additional Past Surgical Histo: SHOULDER X 6, r knee meniscus shaved ([employer]) Smoking Status: Never Smoker Alcohol Use: None Drug Use: None ([employer]) General Adult EDM: Chief Complaint: HYPERGLYCEMIA HPI: HPI: Patient is a 46 year old male with history of diabetes type 1 and a half, hypertension, high cholesterol, who presents to the ED today complaining of hypoglycemia. Patient states his blood sugars have been running high for 10 days. He states high glucose has been a problem for a while but this round has been uncontrolled with his Tresiba and NovoLog. Denies any nausea or vomiting. ([employer]) Review of Systems: Review of Systems: Constitutional: Denies fever or chills. [] Eyes: Denies change in visual acuity. [] HENT: Denies nasal congestion or sore throat. [] Respiratory: Denies cough or shortness of breath. [] Cardiovascular: Denies chest pain or edema. [] GI: Denies abdominal pain, nausea, vomiting, bloody stools or diarrhea. [] : Denies dysuria. [] Musculoskeletal: Denies back pain or joint pain. [] Integument: Denies rash. [] Neurologic: Denies headache, focal weakness or sensory changes. [] Endocrine: Reports hyperglycemia Psychiatric: Denies depression or anxiety. [] ([employer]) Heart Score: C/O Chest Pain: N/A Risk Factors: Risk Factors: DM, Current or recent (<one month) smoker, HTN, HLP, family history of CAD, obesity. Risk Scores: Score 0 - 3: 2.5% MACE over next 6 weeks - Discharge Home Score 4 - 6: 20.3% MACE over next 6 weeks - Admit for Clinical Observation Score 7 - 10: 72.7% MACE over next 6 weeks - Early Invasive Strategies ([employer]) Current Medications: Current Medications Medications (Trade) Dose Ordered Sig/Radha Start Time Stop Time Status Last Admin Dose Admin Sodium Chloride 1,000 ml @ 1,000 mls/hr 1X ONCE 07/24/21 19:45 07/24/21 20:44 ([employer]) Allergies: Allergies: Allergies Coded Allergies Type Severity Reaction Last Updated Verified No Known Drug Allergies 02/17/16 No ([employer] 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 [] HENT: Normocephalic, atraumatic, bilateral external ears normal, oropharynx moist, no oral exudates, nose normal. [] Eyes: PERRLA, EOMI, conjunctiva normal, no discharge. [] Neck: Normal range of motion, no tenderness, supple, no stridor. [] Cardiovascular:Heart rate regular rhythm, no murmur [] Lungs & Thorax: Bilateral breath sounds clear to auscultation [] Abdomen: Bowel sounds normal, soft, no tenderness, no masses, no pulsatile masses. [] Skin: Warm, dry, no erythema, no rash. [] Back: No tenderness, no CVA tenderness. [] Extremities: No tenderness, no cyanosis, no clubbing, ROM intact, no edema. [] Neurologic: Alert and oriented X 3, normal motor function, normal sensory function, no focal deficits noted. [] Psychologic: Affect normal, judgement normal, mood normal. [] ([employer] E[employer] APRN) Current Patient Data: Labs: Laboratory Tests Test 07/24/21 18:48 07/24/21 19:10 Glucose (Fingerstick) 470 mg/dL (70-99) H 443 mg/dL (70-99) H Vital Signs: Vital Signs Date Time Temp Pulse Resp B/P (MAP) Pulse Ox O2 Delivery O2 Flow Rate FiO2 07/24/21 18:35 97.9 94 16 182/99 (126) 94 Room Air 97.9 ([employer]) EKG: EKG: [] ([employer] ELL[employer] APRN) Radiology/Procedures: Radiology/Procedures: [] ([employer] ELL[employer] APRN) Course & Med Decision Making: Course & Med Decision Making Pertinent Labs and Imaging studies reviewed. (See chart for details) This is a 46-year-old male patient presenting to the ED today complaining of hyperglycemia for 10 days. Currently on Tresiba and NovoLog. CBC with no acute findings, CMP with glucose of 415, anion gap is normal, CO2 is normal. Urine negative for ketones. Patient was given IV fluids, and insulin. Glucose is 284. Blood pressure is running high at 195/98 with heart rate in the 60s, he states he has not taken his blood pressure medicine for this evening. He was given hydralazine in the ED. Blood pressure will be rechecked and he will be discharged home ([employer] ELL[employer] APRN) Course & Med Decision Making Patients Care and treatment plan provided by ER Nurse Practitioner. I was available for consult. Patient's chart reviewed. (SERG MELTON DO) Dragon Disclaimer: Dragon Disclaimer: This electronic medical record was generated, in whole or in part, using a voice recognition dictation system. ([employer] ELL[employer] APRN) Departure Departure Impression: Primary Impression: Hyperglycemia Additional Impression: Hypertension Qualified Codes: I10 - Essential (primary) hypertension Disposition: HOME / SELF CARE / HOMELESS Condition: STABLE Referrals: MILAN GUARDADO MD (PCP) follow up in one week Patient Instructions: Hyperglycemia, Hypertension Additional Instructions: You were evaluated in the emergency room for hyperglycemia and hypertension. Please continue taking your blood pressure medicine and diabetes medicine as prescribed. Please follow-up with your own doctor in the course of this week [employer] ELLSWORTH APRN Jul 24, 2021 19:26 SERG MELTON DO Jul 26, 2021 03:35
[2021-07-24 19:42] LABS: BILIRUBIN,URINE NEGATIVE (NEG); CLARITY,URINE CLEAR; COLOR,URINE YELLOW; NITRITE,URINE NEGATIVE (NEG); PROTEIN,URINE NEGATIVE (NEG-TRACE); UROBILINOGEN,URINE 0.2 mg/dL (0.2 mg/dL)
[2021-07-24 19:43] LABS: BASO # 0.1 x10^3/uL (0.0-0.2); BASO % 1 % (0-3); EOS # 0.2 x10^3/uL (0.0-0.7); EOS % 3 % (0-3); HEMATOCRIT 46.7 % (39.0-53.0); HEMOGLOBIN 15.8 g/dL (13.0-17.5); LYMPH % 27 % (24-48); MEAN CORPUSCULAR HEMOGLOBIN 31 pg (25-35); MEAN CORPUSCULAR HGB CONC 34 g/dL (31-37); MEAN CORPUSCULAR VOLUME 91 fL (79-100); MONO # 0.5 x10^3/uL (0.0-1.1); MONO % 7 % (0-9); NEUT # 4.6 x10^3/uL (1.8-7.7); NEUT % 63 % (31-73); PLATELET COUNT 268 x10^3/uL (140-400); RED BLOOD COUNT 5.15 x10^6/uL (4.30-5.70); RED CELL DISTRIBUTION WIDTH 13.5 % (11.5-14.5); WHITE BLOOD COUNT 7.4 x10^3/uL (4.0-11.0)
[2021-07-24] MEDS ORDERED: IV NORMAL SALINE 1000ML BAG 1,000 ML IV ONE ×2 (19:45→20:15)
[2021-07-24 19:53] LABS: BACTERIA,URINE FEW /HPF (0-FEW)
[2021-07-24 19:54] LABS: RBC,URINE RARE /HPF (0-2); WBC,URINE OCC /HPF (0-4)
[2021-07-24 19:56] LABS: CALCIUM 8.8 mg/dL (8.5-10.1); CREATININE 1.1 mg/dL (0.7-1.3); GFR 72.1
[2021-07-24] MEDS ORDERED: KETOROLAC 30 MG/ML VIAL. IVP ONE (20:00)
[2021-07-24 20:02] LABS: ALBUMIN 3.3 g/dL (3.4-5.0); ALBUMIN/GLOBULIN RATIO 0.9 (1.0-1.7); TOTAL BILIRUBIN 0.7 mg/dL (0.2-1.0); TOTAL PROTEIN 6.8 g/dL (6.4-8.2)
[2021-07-24] MEDS ORDERED: INSULIN REGULAR 100 UNIT/ML 3ML VIAL. IV ONE (20:15)
[2021-07-24] MEDS ORDERED: hydrALAZINE 20 MG/ML VIAL. IVP ONE (22:15)
[2021-07-24 23:05] VITALS: BP 175/88
== END 2021-07-24 23:13 | disposition home or self-care (01) ==
LOC: ER 16:54
DX: E10.649 Type 1 diabetes mellitus with hypoglycemia without coma (principal); E78.00 Pure hypercholesterolemia, unspecified; I10 Essential (primary) hypertension
CPT/HCPCS: 36415; 80053; 81001; 82962; 85025; 96361; 96374; 96375; 99285; J0360; J1815; J1885; J7030

== ENCOUNTER 2021-10-22 14:38 | Emergency (ER) | payer SELFPAY ==
[~2021-10-22] VITALS: Ht 190.5 cm; Wt 131.0 kg
[2021-10-22] MEDS ORDERED: IV NORMAL SALINE 1000ML BAG 1,000 ML IV ONE (15:30)
[2021-10-22 15:43] LABS: BASO % 1 % (0-3); EOS # 0.4 x10^3/uL (0.0-0.7); EOS % 5 % (0-3); HEMATOCRIT 43.2 % (39.0-53.0); HEMOGLOBIN 14.5 g/dL (13.0-17.5); LYMPH # 2.2 x10^3/uL (1.0-4.8); LYMPH % 29 % (24-48); MEAN CORPUSCULAR HEMOGLOBIN 30 pg (25-35); MEAN CORPUSCULAR HGB CONC 34 g/dL (31-37); MEAN CORPUSCULAR VOLUME 91 fL (79-100); MONO # 0.4 x10^3/uL (0.0-1.1); MONO % 6 % (0-9); NEUT # 4.6 x10^3/uL (1.8-7.7); NEUT % 60 % (31-73); PLATELET COUNT 303 x10^3/uL (140-400); RED BLOOD COUNT 4.77 x10^6/uL (4.30-5.70); RED CELL DISTRIBUTION WIDTH 13.7 % (11.5-14.5); WHITE BLOOD COUNT 7.7 x10^3/uL (4.0-11.0)
[2021-10-22 16:02] LABS: CALCIUM 8.3 mg/dL (8.5-10.1); CREATININE 1.3 mg/dL (0.7-1.3); GFR 59.4; POTASSIUM 4.1 mmol/L (3.5-5.1)
[2021-10-22 16:07] LABS: ALBUMIN 3.6 g/dL (3.4-5.0); ALBUMIN/GLOBULIN RATIO 0.9 (1.0-1.7); TOTAL BILIRUBIN 0.2 mg/dL (0.2-1.0); TOTAL PROTEIN 7.4 g/dL (6.4-8.2)
[2021-10-22 16:15] LABS: BILIRUBIN,URINE NEGATIVE (NEG); CLARITY,URINE CLEAR; COLOR,URINE YELLOW; PROTEIN,URINE NEGATIVE (NEG-TRACE)
[2021-10-22] MEDS ORDERED: ACETAMINOPHEN 500 MG TABLET PO ONE (16:15)
[2021-10-22 16:16] LABS: BACTERIA,URINE 0 /HPF (0-FEW); NITRITE,URINE NEGATIVE (NEG); UROBILINOGEN,URINE 0.2 mg/dL (0.2 mg/dL)
[2021-10-22 16:24] LABS: INFLUENZA A PATIENT NEGATIVE (NEGATIVE); INFLUENZA B PATIENT NEGATIVE (NEGATIVE)
--- NOTE | 2021-10-22 16:38 | PHYS DOC ---
Past Medical History Past Medical History: Diabetes-Type I, High Cholesterol, Hypertension Additional Past Medical Histor: PNEUMOTHORAX,SHATTERED CHEEK 06/26/21 Past Surgical History: Other Additional Past Surgical Histo: SHOULDER X 6, r knee meniscus shaved Smoking Status: Never Smoker Alcohol Use: None Drug Use: None General Adult EDM: Chief Complaint: BLOOD SUGAR PROBLEM HPI: HPI: Patient is a 46 year old male who presents with planes of headache, generalized body aches, chest tightness and his blood sugar running high. He states this is all been going on for the last 4 to 5 days. Today in the hospital his glucose was 304. Patient states that he takes 2 different kinds of insulins and has been taking them. He denies nausea, vomiting, abdominal pain, increased thirst, dizziness, syncope, numbness or tingling, chest pain, shortness of breath, cough, fever, urinary symptoms, back pain, focal weakness. He is fully vaccinated with a booster for Covid. He has had COVID 19x2, high cholesterol, hypertension, pneumothorax, diabetes type 1, shoulder surgery x6. He denies any current smoking or asthma history. Review of Systems: Review of Systems: Constitutional: Denies fever or chills. + High glucose [] Eyes: Denies change in visual acuity. [] HENT: Denies nasal congestion or sore throat. [] Respiratory: Denies cough or shortness of breath. [] Cardiovascular: Denies chest pain or edema. + Chest tightness times once [] GI: Denies abdominal pain, nausea, vomiting, bloody stools or diarrhea. [] : Denies dysuria. [] Musculoskeletal: Denies back pain or joint pain. + Generalized body aches [] Integument: Denies rash. [] Neurologic: + headache, denies focal weakness or sensory changes. [] Endocrine: Denies polyuria or polydipsia. [] Lymphatic: Denies swollen glands. [] Psychiatric: Denies depression or anxiety. [] Heart Score: C/O Chest Pain: No HEART Score for Chest Pain: HEART Score for Chest Pain Response (Comments) Value History Slighlty/Non-Suspicious 0 ECG Normal 0 Age >45 - < 65 1 Risk Factors >3 Risk Factors or Hx CAD 2 Troponin < Normal Limit 0 Total 3 Risk Factors: Risk Factors: DM, Current or recent (<one month) smoker, HTN, HLP, family history of CAD, obesity. Risk Scores: Score 0 - 3: 2.5% MACE over next 6 weeks - Discharge Home Score 4 - 6: 20.3% MACE over next 6 weeks - Admit for Clinical Observation Score 7 - 10: 72.7% MACE over next 6 weeks - Early Invasive Strategies Current Medications: Current Medications Medications (Trade) Dose Ordered Sig/Radha Start Time Stop Time Status Last Admin Dose Admin Acetaminophen (Tylenol) 1,000 mg 1X ONCE 10/22/21 16:15 10/22/21 16:16 DC 10/22/21 16:13 1,000 MG Sodium Chloride 1,000 ml @ 1,000 mls/hr 1X ONCE 10/22/21 15:30 10/22/21 16:29 10/22/21 15:42 1,000 MLS/HR Allergies: Allergies: Allergies Coded Allergies Type Severity Reaction Last Updated Verified No Known Drug Allergies 02/17/16 No Physical Exam: PE: Constitutional: Well developed, well nourished, no acute distress, non-toxic ap pearance. Morbidly obese [] HENT: Normocephalic, atraumatic, bilateral external ears normal, oropharynx moist, no oral exudates, nose normal. [] Eyes: PERRLA, EOMI, conjunctiva normal, no discharge. [] Neck: Normal range of motion, no tenderness, supple, no stridor. [] Cardiovascular:Heart rate regular rhythm, no murmur [] Lungs & Thorax: Bilateral upper breath sounds clear and lower diminished to auscultation [] Abdomen: Bowel sounds normal, soft, no tenderness, no masses, no pulsatile masses. [] Skin: Warm, dry, no erythema, no rash. [] Back: No tenderness, no CVA tenderness. [] Extremities: No tenderness, no cyanosis, no clubbing, ROM intact, no edema. [] Neurologic: Alert and oriented X 3, normal motor function, normal sensory function, no focal deficits noted. [] Psychologic: Affect normal, judgement normal, mood normal. [] Current Patient Data: Labs: Laboratory Tests Test 10/22/21 13:40 10/22/21 13:43 10/22/21 15:07 10/22/21 15:20 Urine Collection Type Unknown Urine Color Yellow Urine Clarity Clear Urine pH 7.0 (<5.0-8.0) Urine Specific Purling 1.020 (1.000-1.030) Urine Protein Negative mg/dL (NEG-TRACE) Urine Glucose (UA) 500 mg/dL (NEG) Urine Ketones (Stick) Trace mg/dL (NEG) Urine Blood Negative (NEG) Urine Nitrite Negative (NEG) Urine Bilirubin Negative (NEG) Urine Urobilinogen Dipstick 0.2 mg/dL (0.2 mg/dL) Urine Leukocyte Esterase Negative (NEG) Urine RBC 1-2 /HPF (0-2) Urine WBC 1-4 /HPF (0-4) Urine Squamous Epithelial Cells Few /LPF Urine Bacteria 0 /HPF (0-FEW) Influenza Type A Antigen Negative (NEGATIVE) Influenza Type B Antigen Negative (NEGATIVE) SARS-CoV-2 Antigen (Rapid) Negative (NEGATIVE) Glucose (Fingerstick) 307 mg/dL (70-99) H White Blood Count 7.7 x10^3/uL (4.0-11.0) Red Blood Count 4.77 x10^6/uL (4.30-5.70) Hemoglobin 14.5 g/dL (13.0-17.5) Hematocrit 43.2 % (39.0-53.0) Mean Corpuscular Volume 91 fL (79-100) Mean Corpuscular Hemoglobin 30 pg (25-35) Mean Corpuscular Hemoglobin Concent 34 g/dL (31-37) Red Cell Distribution Width 13.7 % (11.5-14.5) Platelet Count 303 x10^3/uL (140-400) Neutrophils (%) (Auto) 60 % (31-73) Lymphocytes (%) (Auto) 29 % (24-48) Monocytes (%) (Auto) 6 % (0-9) Eosinophils (%) (Auto) 5 % (0-3) H Basophils (%) (Auto) 1 % (0-3) Neutrophils # (Auto) 4.6 x10^3/uL (1.8-7.7) Lymphocytes # (Auto) 2.2 x10^3/uL (1.0-4.8) Monocytes # (Auto) 0.4 x10^3/uL (0.0-1.1) Eosinophils # (Auto) 0.4 x10^3/uL (0.0-0.7) Basophils # (Auto) 0.0 x10^3/uL (0.0-0.2) Sodium Level 137 mmol/L (136-145) Potassium Level 4.1 mmol/L (3.5-5.1) Chloride Level 103 mmol/L (98-107) Carbon Dioxide Level 28 mmol/L (21-32) Anion Gap 6 (6-14) Blood Urea Nitrogen 13 mg/dL (8-26) Creatinine 1.3 mg/dL (0.7-1.3) Estimated GFR (Cockcroft-Gault) 59.4 BUN/Creatinine Ratio 10 (6-20) Glucose Level 306 mg/dL (70-99) H Calcium Level 8.3 mg/dL (8.5-10.1) L Total Bilirubin 0.2 mg/dL (0.2-1.0) Aspartate Amino Transferase (AST) 20 U/L (15-37) Alanine Aminotransferase (ALT) 40 U/L (16-63) Alkaline Phosphatase 121 U/L (46-116) H Total Protein 7.4 g/dL (6.4-8.2) Albumin 3.6 g/dL (3.4-5.0) Albumin/Globulin Ratio 0.9 (1.0-1.7) L Lipase 39 U/L (73-393) L Laboratory Tests 10/22/21 15:20 Laboratory Tests 10/22/21 15:20 Vital Signs: Vital Signs Date Time Temp Pulse Resp B/P (MAP) Pulse Ox O2 Delivery O2 Flow Rate FiO2 10/22/21 14:58 98.9 88 16 162/95 (117) 95 Room Air 98.9 EKG: EK and read by Dr. Major as sinus rhythm and no STEMI Radiology/Procedures: Radiology/Procedures: [] Impression: [facility] [address] [place] [address] IMAGING REPORT Signed PATIENT: WILIAM NAVARRO ACCOUNT: [id number] : 1975 LOCATION: ER AGE: 46 SEX: M EXAM STATUS: REG ER ORD. PHYSICIAN: JUAN PABLO LAZAR APRN REASON: CHEST TIGHTNESS PROCEDURE: PORTABLE CHEST 1V Exam: Chest one view INDICATION: Chest and TECHNIQUE: Frontal view of the chest Comparisons: 02/22/2021 FINDINGS: The cardiomediastinal silhouette and pulmonary vessels are within normal limits. The lung and pleural spaces are clear. IMPRESSION: No acute cardiopulmonary process. Electronically signed by: Kaelyn Armendariz MD (10/22/2021 4:42 PM) [facility] DICTATED and SIGNED BY: KAELYN ARMENDARIZ MD DATE: 10/22/21 [id number] [facility] [address] [place] [address] IMAGING REPORT Signed PATIENT: WILIAM NAVARRO ACCOUNT: [id number] : 1975 LOCATION: ER AGE: 46 SEX: M EXAM STATUS: REG ER ORD. PHYSICIAN: JUAN PABLO LAZAR APRN REASON: HEADACHE PROCEDURE: CT HEAD WO CONTRAST Exam: CT head INDICATION: Headache TECHNIQUE: Sequential axial images through the head were obtained without the administration of IV contrast. Exposure: One or more of the following in the visualized dose reduction techniques were utilized for this examination: 1. Automated exposure control 2. Adjustment of the MA and/or KV according to patient size 3. Use of iterative of reconstructive technique Comparisons: 06/29/2019 FINDINGS: No focal parenchymal lesion or hemorrhage is identified. There is no midline shift or sulcal effacement. No acute vascular territory infarction is identified. Mariano-white distinction is preserved. The ventricular system is within normal limits without compression hydrocephalus. The basal cisterns are well maintained. The visualized portions of the paranasal sinuses and mastoid air cells are well- pneumatized. No acute fractures. IMPRESSION: No acute intracranial abnormality. Electronically signed by: Kaelyn Armendariz MD (10/22/2021 6:04 PM) [facility] DICTATED and SIGNED BY: KAELYN ARMENDARIZ MD DATE: 10/22/21 [id number] 0 Course & Med Decision Making: Course & Med Decision Making Pertinent Labs and Imaging studies reviewed. (See chart for details) COVID-19 CRITERIA: The patient was evaluated during the global COVID-19 pandemic, and that diagnosis was suspected/considered upon their initial presentation. Their evaluation, treatment and testing was consistent with current guidelines for patients who present with complaints or symptoms that may be related to COVID-19. See HPI. Alert and oriented x4. Ambulatory steady gait. Speaks in full clear sentences. Lungs are clear in upper lobes and diminished in lower lobes. Skin pink warm and dry. No extremity edema. Abdomen is soft and nontender. No nystagmus. Patient is given Tylenol for his headache and body aches. Afebrile. Rapid Covid and influenza are negative. Patient is given a liter of normal saline in the ED. Patient states Tylenol did not help his headache. I ordered Toradol and Compazine. Blood pressures in the 140s. After 1 L normal saline bolus his blood sugar came down to 228. Blood work otherwise unremarkable. Chest x-ray is clear. I have called and spoke to Dr. Roth who states it is okay for the patient go home and he can follow-up with him this coming up week. Patient to continue his medications as they are prescribed. [] Go Disclaimer: Go Disclaimer: This electronic medical record was generated, in whole or in part, using a voice recognition dictation system. COVID-19 Patient Risks: Age 65 or older: No Sign of co-morbidity: Yes Exp to person + for COVID: No Exp to PUI: No Travel from affected area: No Lower respiratory symptoms: No Fever: No Other: Yes (HEADACHE) PPE Use: Full PPE with N95 mask or PAPR: Yes Departure Departure Impression: Primary Impression: Hyperglycemia Additional Impressions: Headache Qualified Codes: R51.9 - Headache, unspecified Body aches Disposition: HOME / SELF CARE / HOMELESS Condition: STABLE Referrals: MILAN ROTH MD (PCP) Patient Instructions: General Headache Without Cause, Hyperglycemia Additional Instructions: Follow-up with Dr. Roth this coming week. I would call tomorrow to get a appointment. Drink plenty of fluids to keep hydrated. Continue taking all your medications as prescribed. Eat a diabetic diet. Take Tylenol or ibuprofen for your headache. If any of your symptoms worsen or your you begin to vomit, run a high fever or have the worst headache of your life or have dizziness or focal weakness return to the emergency room. JUAN PABLO LAZAR APRN Oct 22, 2021 16:38
--- NOTE | 2021-10-22 16:44 | RAD ---
Exam: Chest one view INDICATION: Chest and TECHNIQUE: Frontal view of the chest Comparisons: 02/22/2021 FINDINGS: The cardiomediastinal silhouette and pulmonary vessels are within normal limits. The lung and pleural spaces are clear. IMPRESSION: No acute cardiopulmonary process. Electronically signed by: Kaelyn Wilson MD (10/22/2021 4:42 PM) [facility]
[2021-10-22 17:27] VITALS: BP 145/83
[2021-10-22] MEDS ORDERED: KETOROLAC 30 MG/ML VIAL. IVP ONE (17:30)
[2021-10-22] MEDS ORDERED: PROCHLORPERAZINE 10 MG/2 ML VIAL. IV ONE (17:30)
--- NOTE | 2021-10-22 18:07 | RAD ---
Exam: CT head INDICATION: Headache TECHNIQUE: Sequential axial images through the head were obtained without the administration of IV co ntrast. Exposure: One or more of the following in the visualized dose reduction techniques were utilized for this examination: 1. Automated exposure control 2. Adjustment of the MA and/or KV according to patient size 3. Use of iterative of reconstructive technique Comparisons: 06/29/2019 FINDINGS: No focal parenchymal lesion or hemorrhage is identified. There is no midline shift or sulcal effaceme nt. No acute vascular territory infarction is identified. Mariano-white distinction is preserved. The ventricular system is within normal limits without compression hydrocephalus. The basal cisterns are well maintained. The visualized portions of the paranasal sinuses and mastoid air cells are well-pneumatized. No acute fractures. IMPRESSION: No acute intracranial abnormality. Electronically signed by: Kaelyn Wilson MD (10/22/2021 6:04 PM) [facility]
--- NOTE | 2021-10-22 18:54 | EKG ---
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
--- NOTE | 2021-10-24 11:32 | NUR ---
IP: Attempted to contact pt concerning covid results. No answer, left a voicemail to return the call.
--- NOTE | 2021-10-25 16:22 | NUR ---
IP: [facility]. No answer, left a second voicemail to return the call.
== END 2021-10-22 18:16 | disposition home or self-care (01) ==
LOC: ER 14:38
DX: E10.65 Type 1 diabetes mellitus with hyperglycemia (principal); Z20.822 Contact with and (suspected) exposure to COVID-19; R51.9 Headache, unspecified; M79.10 Myalgia, unspecified site; E78.00 Pure hypercholesterolemia, unspecified; I10 Essential (primary) hypertension; E66.01 Morbid (severe) obesity due to excess calories; Z68.36 Body mass index [BMI] 36.0-36.9, adult
CPT/HCPCS: 36415; 70450; 71045; 80053; 81001; 82962; 83690; 84484; 85025; 87428; 93005; 96361; 96374; 96375; 99285; C9803; J0780; J1885; J7030; U0003

== ENCOUNTER 2021-10-27 12:29 | Observation (INO) | payer SELFPAY ==
[~2021-10-27] VITALS: Ht 190.5 cm; Wt 139.0 kg
[2021-10-27 13:29] LABS: BASO % 0 % (0-3); EOS % 0 % (0-3); HEMATOCRIT 42.2 % (39.0-53.0); HEMOGLOBIN 13.9 g/dL (13.0-17.5); LYMPH # 1.1 x10^3/uL (1.0-4.8); LYMPH % 9 % (24-48); MEAN CORPUSCULAR HEMOGLOBIN 30 pg (25-35); MEAN CORPUSCULAR HGB CONC 33 g/dL (31-37); MEAN CORPUSCULAR VOLUME 90 fL (79-100); MONO # 0.5 x10^3/uL (0.0-1.1); MONO % 4 % (0-9); NEUT # 10.4 x10^3/uL (1.8-7.7); NEUT % 86 % (31-73); PLATELET COUNT 313 x10^3/uL (140-400); RED BLOOD COUNT 4.68 x10^6/uL (4.30-5.70); RED CELL DISTRIBUTION WIDTH 13.8 % (11.5-14.5); WHITE BLOOD COUNT 12.1 x10^3/uL (4.0-11.0)
[2021-10-27 13:42] LABS: PROTHROMBIN TIME PATIENT 12.2 SEC (11.7-14.0)
--- NOTE | 2021-10-27 13:43 | RAD ---
AP chest. HISTORY: Chest pain AP view was taken of the chest. There is sclerosis from old anterior right rib fractures. Lungs are f ree of infiltrates. Heart is normal in size. There is no effusion. IMPRESSION: 1. No acute chest disease. Electronically signed by: Ministerio Benavides MD (10/27/2021 1:40 PM) [facility]
[2021-10-27 13:44] LABS: CREATININE 1.4 mg/dL (0.7-1.3); GFR 54.6; POTASSIUM 3.4 mmol/L (3.5-5.1)
[2021-10-27 13:50] LABS: ALBUMIN/GLOBULIN RATIO 1.2 (1.0-1.7); TOTAL BILIRUBIN 0.4 mg/dL (0.2-1.0); TOTAL PROTEIN 7.3 g/dL (6.4-8.2)
--- NOTE | 2021-10-27 14:26 | PDOC2 ---
CAROLINA UNDERWOOD AQUATICS COORDINATOR 10/27/21 1425: CARDIAC CONSULT DATE OF CONSULT Date of Consult DATE: 10/27/21 TIME: 14:20 REASON FOR CONSULT Reason for Consult: chest pain REFERRING PHYSICIAN Referring Physician: deborah SOURCE Source: Chart review, Patient HISTORY OF PRESENT ILLNESS HISTORY OF PRESENT ILLNESS This is a pleasant 46 yo male admitted for complains of chest pain. Reports of dull achy discomfort to left lower sternal region radiating to immediate back. No associated SOA. This has been on and off in the last week. No significant SOA and works in a [employer] business which requires heavy exertion and no consistent chest pain nor THAO with his work. He does some tingling on his hands with notable issues with cluster SANTIAGO and bilateral shoulder issues in the past. He was started on prednisone this Saturday due to cluster SANTIAGO as he was told by his PCP. His BG have been up and down. He just started taking adderall again for ADD. Also yesterday he had 6 diarrheal stools and this morning had vomiting and almost passed out after that. No palpitations. No hx of arrhythmias. No fever or chills. PAST MEDICAL HISTORY Cardiovascular: HTN, Hyperlipidemia CENTRAL NERVOUS SYSTEM: Other (cluster SANTIAGO) Psych: Other (ADD) Endocrine: Diabetes PAST SURGICAL HISTORY Past Surgical History: Other (multiple shoulder surgery, righ knee meniscus repair) FAMILY HISTORY Family History noncontributory to CV SOCIAL HISTORY Smoke: Quit ALCOHOL: none Drugs: None ALLERGIES ALLERGIES: Coded Allergies: No Known Drug Allergies (Unverified , 02/17/16) ROS Review of System 14 point ROS evaluated with pertinent positives noted per HPI PHYSICAL EXAM General: Alert, Oriented X3, Cooperative, No acute distress HEENT: Atraumatic, Mucous membr. moist/pink Lungs: Clear to auscultation, Normal air movement Heart: Regular rate (SR), Normal S1, Normal S2, No murmurs Abdomen: Soft, No tenderness Extremities: No cyanosis, No edema Skin: No breakdown, No significant lesion Neuro: Normal speech, Sensation intact Psych/Mental Status: Mental status NL, Mood NL MUSCULOSKELETAL: Osteoarthritic changes both hands VITALS/I&O VITALS/I&O: Vital Signs Date Time Temp Pulse Resp B/P (MAP) Pulse Ox O2 Delivery O2 Flow Rate FiO2 10/27/21 12:29 98.3 134 26 157/71 (99) 95 98.3 LABS Lab: Laboratory Tests Test 10/27/21 13:00 White Blood Count 12.1 x10^3/uL (4.0-11.0) H Red Blood Count 4.68 x10^6/uL (4.30-5.70) Hemoglobin 13.9 g/dL (13.0-17.5) Hematocrit 42.2 % (39.0-53.0) Mean Corpuscular Volume 90 fL (79-100) Mean Corpuscular Hemoglobin 30 pg (25-35) Mean Corpuscular Hemoglobin Concent 33 g/dL (31-37) Red Cell Distribution Width 13.8 % (11.5-14.5) Platelet Count 313 x10^3/uL (140-400) Neutrophils (%) (Auto) 86 % (31-73) H Lymphocytes (%) (Auto) 9 % (24-48) L Monocytes (%) (Auto) 4 % (0-9) Eosinophils (%) (Auto) 0 % (0-3) Basophils (%) (Auto) 0 % (0-3) Neutrophils # (Auto) 10.4 x10^3/uL (1.8-7.7) H Lymphocytes # (Auto) 1.1 x10^3/uL (1.0-4.8) Monocytes # (Auto) 0.5 x10^3/uL (0.0-1.1) Eosinophils # (Auto) 0.0 x10^3/uL (0.0-0.7) Basophils # (Auto) 0.0 x10^3/uL (0.0-0.2) Prothrombin Time 12.2 SEC (11.7-14.0) Prothrombin Time INR 0.9 (0.8-1.1) Activated Partial Thromboplast Time 27 SEC (24-38) Sodium Level 139 mmol/L (136-145) Potassium Level 3.4 mmol/L (3.5-5.1) L Chloride Level 98 mmol/L (98-107) Carbon Dioxide Level 25 mmol/L (21-32) Anion Gap 16 (6-14) H Blood Urea Nitrogen 31 mg/dL (8-26) H Creatinine 1.4 mg/dL (0.7-1.3) H Estimated GFR (Cockcroft-Gault) 54.6 BUN/Creatinine Ratio 22 (6-20) H Glucose Level 152 mg/dL (70-99) H Calcium Level 9.0 mg/dL (8.5-10.1) Total Bilirubin 0.4 mg/dL (0.2-1.0) Aspartate Amino Transferase (AST) 43 U/L (15-37) H Alanine Aminotransferase (ALT) 40 U/L (16-63) Alkaline Phosphatase 89 U/L (46-116) Troponin I High Sensitivity 9 ng/L (4-75) [id number]-[id number]-F-Type Natriuretic Peptide 9 pg/mL (0-124) Total Protein 7.3 g/dL (6.4-8.2) Albumin 4.0 g/dL (3.4-5.0) Albumin/Globulin Ratio 1.2 (1.0-1.7) Laboratory Tests 10/27/21 13:00 Laboratory Tests 10/27/21 13:00 ECHOCARDIOGRAM ECHOCARDIOGRAM <Conclusion> The left ventricular systolic function is normal. The Ejection Fraction is 60-65%. There is normal LV segmental wall motion. Doppler and Color Flow revealed trace tricuspid regurgitation. There is no evidence of significant pericardial effusion. DATE: 11/17/17 1634 STRESS TEST STRESS TEST Conclusion 1. Regadenoson cardioisotope stress test did not show any evidence of ischemia or infarct. 2. Normal left ventricular systolic function with ejection fraction calculated at 61%. 3. Low risk for cardiac events. DATE: 11/18/17 1339 ASSESSMENT/PLAN ASSESSMENT/PLAN 1. Atypical chest pain 2. Mild CELI: prerenal 3. DM2: insulin dependent 4. HTN: mildly labile 5. Possible gastroenteritis 6. Presyncope: suspect vasovagal associated with vomiting 7. SANTIAGO: described it as cluster: was started on prednisone this week per PCP 8. Adderall use Recommendations 1. EKG SR without acute changes. doubt ACS. With his risk factors will recommend outpt treadmill MPI 2. Continue secondary prevention measures. Start on IVF DONNY WRIGHT MD 10/27/21 1525: CARDIAC CONSULT ASSESSMENT/PLAN ASSESSMENT/PLAN Patient seen and examined. Agree with DIRECTOR TRADING's assessment plan. Chest pain with atypical features. EKG without acute changes and initial troponin negative Near syncope and mild CELI probably secondary to dehydration Continue intravenous fluids Plan for outpatient ischemic evaluation Thank you for your consultation CAROLINA UNDERWOOD APRN Oct 27, 2021 14:25 DONNY WRIGHT MD Oct 27, 2021 15:25
[2021-10-27] MEDS ORDERED: IV NORMAL SALINE 1000ML BAG 1,000 ML IV ONE ×2 (14:45)
--- NOTE | 2021-10-27 15:09 | PHYS DOC ---
Past Medical History Past Medical History: Diabetes-Type I, High Cholesterol, Hypertension Additional Past Medical Histor: PNEUMOTHORAX,SHATTERED CHEEK 06/26/21 Past Surgical History: Other Additional Past Surgical Histo: SHOULDER X 6, r knee meniscus shaved Smoking Status: Never Smoker Alcohol Use: Occasionally Drug Use: None Adult General Chief Complaint Chief Complaint: CHEST PAIN HPI HPI The patient is a 46-year-old male with a history of hypertension, hyperlipidemia and type 1 diabetes. He presents with 2 complaints. First, patient notes left-sided nonexertional nonpleuritic stuttering chest discomfort, radiating to his left scapular region, with onset about 2 weeks ago and worsening somewhat in severity and persistence over the last 1 to 2 days. Severity no more than 3 out of 10 at present. Second, patient notes several weeks of intermittent bilateral frontal headaches. States his primary doctor suspects that the headaches are clustertype. Has a headache now, typical for him over the past few weeks. He visited the emergency department a little less than a week ago for evaluation of headache, among other concerns, and at that time, noncontrast CT scan of the head was negative. Patient reports no change in the character or severity of his headaches since the CT scan was completed. He notes that the headaches have not gotten better however. Patient denies associated fevers, nausea or vomiting, upper respiratory conges tion/rhinorrhea, cough, sore throat, shortness of breath, abdominal pain, flank pain, back pain. Vital signs are appropriate here and the patient is in no acute distress. Review of Systems Review of Systems A 12 point review of systems was completed and was negative except where noted in HPI above. Current Medications Current Medications Current Medications Medications (Trade) Dose Ordered Sig/Radha Start Time Stop Time Status Last Admin Dose Admin Acetaminophen (Tylenol) 1,000 mg 1X ONCE 10/27/21 15:15 10/27/21 15:16 Aspirin (Zuleyma Aspirin) 325 mg 1X ONCE 10/27/21 14:45 10/27/21 14:46 UNV Diphenhydramine HCl (Benadryl) 25 mg 1X ONCE 10/27/21 15:15 10/27/21 15:16 Prochlorperazine Edisylate (Compazine) 10 mg 1X ONCE 10/27/21 15:15 10/27/21 15:16 Sodium Chloride 1,000 ml @ 1,000 mls/hr 1X ONCE 10/27/21 14:45 10/27/21 15:44 Allergies Allergies Allergies Coded Allergies Type Severity Reaction Last Updated Verified No Known Drug Allergies 02/17/16 No Physical Exam Physical Exam 46-year-old male appearing nontoxic and in no acute distress. Head is normocephalic and atraumatic. Neck is supple and nontender. No JVD. Patient ranges neck fully in all dimensions out discomfort or distress. No stiffness/rigidity/meningismus seen. Oropharynx is moist. Lungs are clear to auscultation at all stations. There is a normal S1 and S2 without rubs or gallops and capillary refill is appropriate, less than 2 seconds globally. Abdomen is soft, nontender nondistended. Skin is warm and dry and without cyanosis, clubbing or edema. Psychiatrically, the patient demonstrates appropriate mood and affect and is alert. Neurologically, cranial nerves II through XII are intact and there are no lateralizing deficits seen. Speech is normal. Language is normal. Coordination is normal. There is no dysmetria finger-nose or eftl-xr-dend bilaterally. Strength is 5-5 in all joints of bilateral upper and lower extremities. Sensation intact light touch in bilateral upper and lower extremities. Patient ambulates with a narrow, steady, non-ataxic gait here in the emergency department and is alert and oriented x4. Evaluation of the extremities reveals BUEs and BLEs neurovascularly intact distally with strength out of 5, sensation intact light touch in all nerve distributions, radial, DP and PT pulses 2+ and equal bilaterally, capillary re fill less than 2 seconds, hands and feet warm and well-perfused. No dependent peripheral edema distally. No calf tenderness swelling bilaterally. Homans test is negative bilaterally. Current Patient Data Vital Signs Vital Signs Date Time Temp Pulse Resp B/P (MAP) Pulse Ox O2 Delivery O2 Flow Rate FiO2 10/27/21 12:29 98.3 134 26 157/71 (99) 95 98.3 Lab Values Laboratory Tests Test 10/27/21 13:00 White Blood Count 12.1 x10^3/uL (4.0-11.0) H Red Blood Count 4.68 x10^6/uL (4.30-5.70) Hemoglobin 13.9 g/dL (13.0-17.5) Hematocrit 42.2 % (39.0-53.0) Mean Corpuscular Volume 90 fL (79-100) Mean Corpuscular Hemoglobin 30 pg (25-35) Mean Corpuscular Hemoglobin Concent 33 g/dL (31-37) Red Cell Distribution Width 13.8 % (11.5-14.5) Platelet Count 313 x10^3/uL (140-400) Neutrophils (%) (Auto) 86 % (31-73) H Lymphocytes (%) (Auto) 9 % (24-48) L Monocytes (%) (Auto) 4 % (0-9) Eosinophils (%) (Auto) 0 % (0-3) Basophils (%) (Auto) 0 % (0-3) Neutrophils # (Auto) 10.4 x10^3/uL (1.8-7.7) H Lymphocytes # (Auto) 1.1 x10^3/uL (1.0-4.8) Monocytes # (Auto) 0.5 x10^3/uL (0.0-1.1) Eosinophils # (Auto) 0.0 x10^3/uL (0.0-0.7) Basophils # (Auto) 0.0 x10^3/uL (0.0-0.2) Prothrombin Time 12.2 SEC (11.7-14.0) Prothrombin Time INR 0.9 (0.8-1.1) Activated Partial Thromboplast Time 27 SEC (24-38) Sodium Level 139 mmol/L (136-145) Potassium Level 3.4 mmol/L (3.5-5.1) L Chloride Level 98 mmol/L (98-107) Carbon Dioxide Level 25 mmol/L (21-32) Anion Gap 16 (6-14) H Blood Urea Nitrogen 31 mg/dL (8-26) H Creatinine 1.4 mg/dL (0.7-1.3) H Estimated GFR (Cockcroft-Gault) 54.6 BUN/Creatinine Ratio 22 (6-20) H Glucose Level 152 mg/dL (70-99) H Calcium Level 9.0 mg/dL (8.5-10.1) Total Bilirubin 0.4 mg/dL (0.2-1.0) Aspartate Amino Transferase (AST) 43 U/L (15-37) H Alanine Aminotransferase (ALT) 40 U/L (16-63) Alkaline Phosphatase 89 U/L (46-116) Troponin I High Sensitivity 9 ng/L (4-75) KV-Lki-P-Type Natriuretic Peptide 9 pg/mL (0-124) Total Protein 7.3 g/dL (6.4-8.2) Albumin 4.0 g/dL (3.4-5.0) Albumin/Globulin Ratio 1.2 (1.0-1.7) Laboratory Tests 10/27/21 13:00 Laboratory Tests 10/27/21 13:00 EKG EKG Sinus rhythm, rate 92, no acute elevation or depression, PA 164, QRS 108, QTc 463, EP interpretation. Nonischemic tracing. Radiology/Procedures Radiology/Procedures AP chest. HISTORY: Chest pain AP view was taken of the chest. There is sclerosis from old anterior right rib fractures. Lungs are free of infiltrates. Heart is normal in size. There is no effusion. IMPRESSION: 1. No acute chest disease. Electronically signed by: Ministerio Benavides MD (10/27/2021 1:40 PM) [facility] DICTATED and SIGNED BY: MINISTERIO BENAVIDES MD DATE: 10/27/21 [id number] 0 Course & Med Decision Making Course & Med Decision Making 46-year-old insulin-dependent diabetic presenting for stuttering somewhat atypical chest discomfort along with intermittent headaches over the past couple of weeks. Head CT a few days ago was negative and do not see a clear reason to repeat today. Will bring in for further care on an observation basis for ACS rule out and cardiology consultation. Will also consult neurology for recurrent issues with headache discomfort. Graciously accepted for admission by Dr. Roth. Go Disclaimer Go Disclaimer This electronic medical record was generated, in whole or in part, using a voice recognition dictation system. Departure Departure Impression: Primary Impression: Other chest pain Additional Impression: Acute headache Disposition: 09 ADMITTED INPATIENT Condition: STABLE Referrals: MILAN ROTH MD (PCP) Problem Qualifiers Additional Impression: Acute headache Headache type: unspecified Intractability: not intractable Qualified Codes: R51.9 - Headache, unspecified MIGDALIA BOOTH MD Oct 27, 2021 15:09
[2021-10-27] MEDS ORDERED: ONDANSETRON PF 4 MG/2 ML VIAL. IVP PRN (15:15)
[2021-10-27] MEDS ORDERED: ACETAMINOPHEN 325 MG TABLET. PO PRN (15:15)
[2021-10-27] MEDS ORDERED: ASPIRIN 325 MG TABLET PO ONE (15:15)
[2021-10-27] MEDS ORDERED: PROCHLORPERAZINE 10 MG/2 ML VIAL. IV ONE (15:15)
[2021-10-27] MEDS ORDERED: diphenhydrAMINE 50 MG/ML VIAL IVP ONE (15:15)
[2021-10-27] MEDS ORDERED: ACETAMINOPHEN 500 MG TABLET PO ONE (15:15)
--- NOTE | 2021-10-27 15:42 | EKG ---
[facility] [address] [place] [address] Test Date: 2021-10-27 Test Time: 12:38:56 Pat Name: WILIAM NAVARRO Department: Room: Gender: M [employer]er [employer]: : 1975 Requested By: MIGDALIA BOOTH Order Number: [id number] Reading MD: Minesh Beltre MD Measurements Intervals Tabiona Rate: 92 P: 43 HI: 164 QRS: -36 QRSD: 108 T: 56 QT: 370 QTc: 463 Interpretive Statements SINUS RHYTHM LAD NON-SPECIFIC ST/T CHANGES Electronically Signed On 10-30-2021 11:04:57 INVENTORY AUDITOR by Minesh Beltre MD
[2021-10-27] MEDS ORDERED: MAGNESIUM SULFATE 2GM 50 ML IV ONE (16:00)
[2021-10-27] MEDS: NITROGLYCERIN SUBLINGUAL 0.4 MG BOTTLE OF 25. SL PRN ×2 (17:31→17:55)
[2021-10-27] MEDS ORDERED: DEXTROSE 50% 25 GM / 50ML DISP.SYRIN. IV PRN (17:45)
[2021-10-27] MEDS ORDERED: IV DEXTROSE 5% 250 ML BAG. IV PRN (17:45)
[2021-10-27] MEDS: MORPHINE SULFATE 2 MG/ML INJ. IVP PRN ×2 (17:54→21:37)
[2021-10-27] MEDS: IV NORMAL SALINE 1000ML BAG 1,000 ML IV SCH (17:56)
[2021-10-27 17:57] VITALS: BP 120/64
[2021-10-27 18:00] VITALS: BP 117/65
[2021-10-27] MEDS ORDERED: NICOTINE 14MG PATCH. TD PRN (18:00)
[2021-10-27] MEDS ORDERED: NICOTINE POLACRILEX 2MG GUM PACKAGE of 12. BC PRN (18:00)
[2021-10-27] MEDS: INSULIN LISPRO 300 UNITS/3 ML VIAL. SQ SCH (18:05)
[2021-10-27] MEDS ORDERED: ZOLPIDEM 5 MG TABLET. PO PRN (18:30)
[2021-10-27] MEDS ORDERED: clonazePAM 0.5 MG TABLET PO PRN (18:30)
[2021-10-27 19:30] VITALS: BP 121/71
[2021-10-27] MEDS ORDERED: FLU VACC QUAD 21-22 (6MOS+) PF 0.5 ML SYRINGE. VAX IM ONE (20:00)
[2021-10-27] MEDS ORDERED: DIPHTH,PERTUSS(ACELL),TET TOX 0.5 ML DISP.SYRIN. VAX IM ONE (20:00)
[2021-10-27] MEDS ORDERED: SIMVASTATIN 20 MG TABLET PO SCH (21:00)
[2021-10-27] MEDS ORDERED: DEXT20TA24 PO (21:31)
[2021-10-27] MEDS ORDERED: INSU100V37 SQ (21:31)
[2021-10-27] MEDS ORDERED: HYDR25TA10 PO (21:31)
[2021-10-27] MEDS ORDERED: OLME40TA16 PO (21:31)
[2021-10-27] MEDS ORDERED: GABA600T7 PO (21:31)
[2021-10-27] MEDS ORDERED: INSULIN GLARGINE SYRINGE. SQ SCH (21:45)
[2021-10-27] MEDS ORDERED: LOSARTAN POTASSIUM 50 MG TABLET. PO SCH (21:45)
[2021-10-27] MEDS ORDERED: hydroCHLOROthiazide 25 MG TABLET PO SCH (22:30)
[2021-10-27 22:45] VITALS: BP 120/68
[2021-10-27] MEDS: GABAPENTIN 300 MG CAPSULE. PO SCH (22:51)
[2021-10-28] MEDS: MORPHINE SULFATE 2 MG/ML INJ. IVP PRN ×2 (00:49→05:57)
[2021-10-28] MEDS: IV NORMAL SALINE 1000ML BAG 1,000 ML IV SCH ×2 (00:52→08:48)
[2021-10-28 02:08] LABS: BASO % 0 % (0-3); EOS % 0 % (0-3); HEMATOCRIT 39.3 % (39.0-53.0); LYMPH # 2.1 x10^3/uL (1.0-4.8); LYMPH % 23 % (24-48); MEAN CORPUSCULAR HEMOGLOBIN 30 pg (25-35); MEAN CORPUSCULAR HGB CONC 33 g/dL (31-37); MEAN CORPUSCULAR VOLUME 92 fL (79-100); MONO # 0.6 x10^3/uL (0.0-1.1); MONO % 7 % (0-9); NEUT # 6.4 x10^3/uL (1.8-7.7); NEUT % 71 % (31-73); PLATELET COUNT 272 x10^3/uL (140-400); RED BLOOD COUNT 4.29 x10^6/uL (4.30-5.70); RED CELL DISTRIBUTION WIDTH 14.1 % (11.5-14.5); WHITE BLOOD COUNT 9.2 x10^3/uL (4.0-11.0)
[2021-10-28 02:46] VITALS: BP 111/63
[2021-10-28 03:07] LABS: CALCIUM 8.2 mg/dL (8.5-10.1); CREATININE 1.2 mg/dL (0.7-1.3); GFR 65.2; POTASSIUM 4.3 mmol/L (3.5-5.1)
[2021-10-28 07:00] VITALS: BP 112/62
[2021-10-28] MEDS: GABAPENTIN 300 MG CAPSULE. PO SCH (08:47)
[2021-10-28] MEDS ORDERED: ASPIRIN CHEWABLE 81 MG TABLET. PO SCH (09:00)
[2021-10-28] MEDS ORDERED: GABAPENTIN PO SCH (09:00)
[2021-10-28] MEDS ORDERED: LOSARTAN POTASSIUM 50 MG TABLET. PO SCH (09:00)
[2021-10-28] MEDS: INSULIN LISPRO 300 UNITS/3 ML VIAL. SQ SCH (09:04)
--- NOTE | 2021-10-28 09:38 | PDOC ---
PROGRESS NOTES Date of Service: DATE: 10/28/21 TIME: 09:38 Subjective Subjective Denied any chest pain today Objective Objective Vital Signs Date Time Temp Pulse Resp B/P (MAP) Pulse Ox O2 Delivery O2 Flow Rate FiO2 10/28/21 07:00 97.7 71 20 112/62 (79) 97 Room Air 97.7 Intake and Output 10/28/21 07:00 Intake Total 4000 ml Balance 4000 ml Intake Oral 2000 ml IV Total 2000 ml # Voids 2 Physical Exam Abdomen: Soft, No tenderness Heart: Regular rate (SR), Normal S1, Normal S2, No murmurs Extremities: No cyanosis, No edema General: Alert, Oriented X3, Cooperative, No acute distress HEENT: Atraumatic, Mucous membr. moist/pink Lungs: Clear to auscultation, Normal air movement MUSCULOSKELETAL: Osteoarthritic changes both hands Neuro: Normal speech, Sensation intact Psych/Mental Status: Mental status NL, Mood NL Skin: No breakdown, No significant lesion Assessment Assessment 1. Atypical chest pain 2. Mild CELI: prerenal 3. DM2: insulin dependent 4. HTN: mildly labile 5. Possible gastroenteritis 6. Presyncope: suspect vasovagal associated with vomiting 7. SANTIAGO: described it as cluster: was started on prednisone this week per PCP 8. Adderall use Recommendations 1. EKG SR without acute changes. doubt ACS. With his risk factors will recommend outpt treadmill MPI 2. Continue secondary prevention measures. Plan Plan of Care Problems Medical Problems: (1) Acute headache Status: Acute (2) Other chest pain Status: Acute Comment Review of Relevant I have reviewed the following items bryant (where applicable) has been applied. Labs Laboratory Tests Test 10/27/21 13:00 10/27/21 15:46 10/27/21 17:23 10/27/21 19:12 White Blood Count 12.1 x10^3/uL (4.0-11.0) Red Blood Count 4.68 x10^6/uL (4.30-5.70) Hemoglobin 13.9 g/dL (13.0-17.5) Hematocrit 42.2 % (39.0-53.0) Mean Corpuscular Volume 90 fL (79-100) Mean Corpuscular Hemoglobin 30 pg (25-35) Mean Corpuscular Hemoglobin Concent 33 g/dL (31-37) Red Cell Distribution Width 13.8 % (11.5-14.5) Platelet Count 313 x10^3/uL (140-400) Neutrophils (%) (Auto) 86 % (31-73) Lymphocytes (%) (Auto) 9 % (24-48) Monocytes (%) (Auto) 4 % (0-9) Eosinophils (%) (Auto) 0 % (0-3) Basophils (%) (Auto) 0 % (0-3) Neutrophils # (Auto) 10.4 x10^3/uL (1.8-7.7) Lymphocytes # (Auto) 1.1 x10^3/uL (1.0-4.8) Monocytes # (Auto) 0.5 x10^3/uL (0.0-1.1) Eosinophils # (Auto) 0.0 x10^3/uL (0.0-0.7) Basophils # (Auto) 0.0 x10^3/uL (0.0-0.2) Prothrombin Time 12.2 SEC (11.7-14.0) Prothromb Time International Ratio 0.9 (0.8-1.1) Activated Partial Thromboplast Time 27 SEC (24-38) D-Dimer (Amanda) < 0.27 ug/mlFEU Sodium Level 139 mmol/L (136-145) Potassium Level 3.4 mmol/L (3.5-5.1) Chloride Level 98 mmol/L (98-107) Carbon Dioxide Level 25 mmol/L (21-32) Anion Gap 16 (6-14) Blood Urea Nitrogen 31 mg/dL (8-26) Creatinine 1.4 mg/dL (0.7-1.3) Estimated GFR (Cockcroft-Gault) 54.6 BUN/Creatinine Ratio 22 (6-20) Glucose Level 152 mg/dL (70-99) Calcium Level 9.0 mg/dL (8.5-10.1) Total Bilirubin 0.4 mg/dL (0.2-1.0) Aspartate Amino Transf (AST/SGOT) 43 U/L (15-37) Alanine Aminotransferase (ALT/SGPT) 40 U/L (16-63) Alkaline Phosphatase 89 U/L (46-116) Troponin I High Sensitivity 9 ng/L (4-75) 6 ng/L (4-75) RS-Rqh-P-Type Natriuretic Peptide 9 pg/mL (0-124) Total Protein 7.3 g/dL (6.4-8.2) Albumin 4.0 g/dL (3.4-5.0) Albumin/Globulin Ratio 1.2 (1.0-1.7) Glucose (Fingerstick) 327 mg/dL (70-99) 268 mg/dL (70-99) Test 10/27/21 21:44 10/28/21 01:25 10/28/21 07:37 Glucose (Fingerstick) 199 mg/dL (70-99) 186 mg/dL (70-99) White Blood Count 9.2 x10^3/uL (4.0-11.0) Red Blood Count 4.29 x10^6/uL (4.30-5.70) Hemoglobin 13.0 g/dL (13.0-17.5) Hematocrit 39.3 % (39.0-53.0) Mean Corpuscular Volume 92 fL (79-100) Mean Corpuscular Hemoglobin 30 pg (25-35) Mean Corpuscular Hemoglobin Concent 33 g/dL (31-37) Red Cell Distribution Width 14.1 % (11.5-14.5) Platelet Count 272 x10^3/uL (140-400) Neutrophils (%) (Auto) 71 % (31-73) Lymphocytes (%) (Auto) 23 % (24-48) Monocytes (%) (Auto) 7 % (0-9) Eosinophils (%) (Auto) 0 % (0-3) Basophils (%) (Auto) 0 % (0-3) Neutrophils # (Auto) 6.4 x10^3/uL (1.8-7.7) Lymphocytes # (Auto) 2.1 x10^3/uL (1.0-4.8) Monocytes # (Auto) 0.6 x10^3/uL (0.0-1.1) Eosinophils # (Auto) 0.0 x10^3/uL (0.0-0.7) Basophils # (Auto) 0.0 x10^3/uL (0.0-0.2) Sodium Level 139 mmol/L (136-145) Potassium Level 4.3 mmol/L (3.5-5.1) Chloride Level 103 mmol/L (98-107) Carbon Dioxide Level 29 mmol/L (21-32) Anion Gap 7 (6-14) Blood Urea Nitrogen 26 mg/dL (8-26) Creatinine 1.2 mg/dL (0.7-1.3) Estimated GFR (Cockcroft-Gault) 65.2 Glucose Level 344 mg/dL (70-99) Calcium Level 8.2 mg/dL (8.5-10.1) Troponin I High Sensitivity 6 ng/L (4-75) Medications Current Medications Acetaminophen (Tylenol) 650 mg PRN Q4HRS PRN PO FEVER > 100.3'F; Start 10/27/21 at 15:15; Stop 10/28/21 at 15:14 Acetaminophen (Tylenol) 1,000 mg 1X ONCE PO Last administered on 10/27/21at 15:50; Start 10/27/21 at 15:15; Stop 10/27/21 at 15:16; Status DC Amlodipine Besylate (Norvasc) 5 mg DAILY PO ; Start 10/28/21 at 09:00; Stop 10/27/21 at 21:36; Status DC Amlodipine Besylate (Norvasc) 5 mg HS PO Last administered on 10/27/21at 22:51; Start 10/27/21 at 21:45 Aspirin (Aspirin Chewable) 81 mg DAILY PO Last administered on 10/28/21at 08:47; Start 10/28/21 at 09:00 Aspirin (Zuleyma Aspirin) 325 mg 1X ONCE PO Last administered on 10/27/21at 15:37; Start 10/27/21 at 15:15; Stop 10/27/21 at 15:16; Status DC Clonazepam (KlonoPIN) 0.5 mg PRN BID PRN PO ANXIETY / AGITATION Last administered on 10/27/21at 22:50; Start 10/27/21 at 18:30 Dextrose (Dextrose 50%-Water Syringe) 12.5 gm PRN Q15MIN PRN IV SEE COMMENTS; Start 10/27/21 at 17:45; Status UNV Dextrose (Iv Dextrose 5%) 250 ml PRN Q15MIN PRN IV SEE COMMENTS; Start 10/27/21 at 17:45 Diphenhydramine HCl (Benadryl) 25 mg 1X ONCE IVP Last administered on 10/27/21at 15:50; Start 10/27/21 at 15:15; Stop 10/27/21 at 15:16; Status DC Diphtheria/ Tetanus/Acell Pertussis (Boostrix) 0.5 ml ONCE ONCE VAX IM Last administered on 10/27/21 21:49; Start 10/27/21 at 20:00; Stop 10/27/21 at 20:01; Status DC Gabapentin (Neurontin) 1,200 mg TID PO Last administered on 10/28/21at 08:47; Start 10/27/21 at 22:45 Hydrochlorothiazide (Hydrodiuril) 25 mg HS PO Last administered on 10/27/21 22:50; Start 10/27/21 at 22:30 Hydrochlorothiazide (Hydrodiuril) 25 mg HS PO ; Start 10/28/21 at 21:00; Stop 10/27/21 at 22:25; Status DC Influenza Virus Vaccine Quadrival (Flulaval Quad 9932-0672 Syringe) 0.5 ml ONCE ONCE VAX IM Last administered on 10/27/21at 21:47; Start 10/27/21 at 20:00; Stop 10/27/21 at 20:01; Status DC Insulin Glargine (Lantus Syringe) 92 unit QHS SQ Last administered on 10/27/21at 23:02; Start 10/27/21 at 21:45 Insulin Human Lispro (HumaLOG) 0-9 UNITS TIDWMEALS SQ Last administered on 10/28/21at 09:04; Start 10/27/21 at 18:00 Losartan Potassium (Cozaar) 50 mg DAILY PO ; Start 10/28/21 at 09:00; Stop 10/27/21 at 21:36; Status DC Losartan Potassium (Cozaar) 50 mg HS PO Last administered on 10/27/21at 22:50; Start 10/27/21 at 21:45 Magnesium Sulfate 50 ml @ 25 mls/hr 1X ONCE IV Last administered on 10/27/21at 15:37; Start 10/27/21 at 16:00; Stop 10/27/21 at 17:59; Status DC Morphine Sulfate (Morphine Sulfate) 2 mg PRN Q2HR PRN IVP PAIN Last administered on 10/28/21at 05:57; Start 10/27/21 at 17:45 Nicotine (Nicoderm Cq 14mg) 1 patch PRN DAILY PRN TD SMOKING CESSATION; Start 10/27/21 at 18:00 Nicotine Polacrilex (Nicorette Gum) 1 each PRN Q1HR PRN BC SMOKING CESSATION; Start 10/27/21 at 18:00 Nitroglycerin (Nitrostat) 0.4 mg PRN Q5MIN PRN SL CHEST PAIN Last administered on 10/27/21at 17:55; Start 10/27/21 at 17:30 Non-Formulary Medication (Gabapentin ) 2 tab TID PO ; Start 10/28/21 at 09:00; Stop 10/27/21 at 22:25; Status DC Non-Formulary Medication (Insulin Degludec (Tresiba)) 92 unit HS SQ ; Start 10/28/21 at 21:00; Stop 10/27/21 at 22:25; Status DC Ondansetron HCl (Zofran) 4 mg PRN Q8HRS PRN IVP NAUSEA/VOMITING; Start 10/27/21 at 15:15; Stop 10/28/21 at 15:14 Prochlorperazine Edisylate (Compazine) 10 mg 1X ONCE IV ; Start 10/27/21 at 15:15; Stop 10/27/21 at 15:16; Status DC Simvastatin (Zocor) 20 mg QHS PO Last administered on 10/27/21at 22:50; Start 10/27/21 at 21:00 Sodium Chloride 1,000 ml @ 100 mls/hr 1X ONCE IV ; Start 10/27/21 at 14:45; Stop 10/28/21 at 00:44; Status DC Sodium Chloride 1,000 ml @ 125 mls/hr Q8H IV Last administered on 10/28/21at 08:48; Start 10/27/21 at 17:45 Sodium Chloride 1,000 ml @ 1,000 mls/hr 1X ONCE IV Last administered on 10/27/21at 15:37; Start 10/27/21 at 14:45; Stop 10/27/21 at 15:44; Status DC Zolpidem Tartrate (Ambien) 5 mg PRN QHS PRN PO INSOMNIA, MAY REPEAT X1 Last administered on 10/27/21at 22:51; Start 10/27/21 at 18:30 Vitals/I & O Vital Sign - Last 24 Hours 10/27/21 10/27/21 10/27/21 10/27/21 12:29 12:52 13:22 13:52 Temp 98.3 98.3 Pulse 134 94 96 90 Resp 26 B/P (MAP) 157/71 (99) 165/81 (109) 165/74 (104) 175/95 (121) Pulse Ox 95 97 95 94 O2 Delivery Room Air Room Air Room Air 10/27/21 10/27/21 10/27/21 10/27/21 14:22 14:52 15:22 15:52 Pulse 90 88 86 78 B/P (MAP) 163/91 (115) 168/93 (118) 165/87 (113) 149/88 (108) Pulse Ox 92 93 92 95 O2 Delivery Room Air Room Air Room Air Room Air 10/27/21 10/27/21 10/27/21 10/27/21 16:22 16:46 17:31 17:54 Pulse 80 73 B/P (MAP) 169/99 (122) 144/84 Pulse Ox 95 95 O2 Delivery Room Air Room Air Room Air 10/27/21 10/27/21 10/27/21 10/27/21 17:55 17:57 18:00 19:00 Pulse 66 73 70 Resp 20 B/P (MAP) 127/64 120/64 (82) 117/65 (82) O2 Delivery Room Air 10/27/21 10/27/21 10/27/21 10/27/21 19:30 19:50 21:37 22:07 Temp 97.8 97.8 Pulse 69 Resp 20 20 20 B/P (MAP) 121/71 (88) Pulse Ox 95 O2 Delivery Room Air Room Air Room Air Room Air 10/27/21 10/27/21 10/27/21 10/28/21 22:45 22:50 22:51 00:49 Temp 97.6 97.6 Pulse 71 74 76 Resp 20 20 B/P (MAP) 120/68 (85) 120/68 120/68 Pulse Ox 96 O2 Delivery Room Air Room Air 10/28/21 10/28/21 10/28/21 10/28/21 02:46 05:57 06:27 07:00 Temp 97.7 97.7 97.7 97.7 Pulse 62 71 Resp 16 20 18 20 B/P (MAP) 111/63 (79) 112/62 (79) Pulse Ox 93 97 O2 Delivery Room Air Room Air Room Air Room Air Intake and Output 0 10/27/21 10/27/21 10/28/21 15:00 23:00 07:00 Intake Total 1000 ml 3000 ml Balance 1000 ml 3000 ml DONNY WRIGHT MD Oct 28, 2021 09:38
--- NOTE | 2021-10-28 10:28 | PDOC2 ---
NEUROLOGY CONSULT Date of Service DOS: DATE: 10/28/21 TIME: 10:23 Reason for Consult Reason for Consult: Headaches Referring Physician Referring Physician: Dr. Roth Source Source: Chart review, Patient History of Present Illness History of Present Illness The patient is a 46-year-old right-handed male who has had 3 weeks of headaches and 2 or 3 weeks of left-sided pleuritic chest pain. His sugars have been running high. He describes jabs of pain in the left frontal region without photo phonophobia, nausea, conjunctival injection, tearing, or ptosis. He has no prior history of headaches, stroke, seizure, or head injury. He went to the emergency department a week ago and underwent a head CT negative as reviewed below. He was treated with fluids, Toradol, and Compazine. He then saw Dr. Roth last week who put him on a steroid pulse for presumed cluster headache. This did help some. Patient is feeling better this morning and wants to go home. He denies any focal neurological symptoms. 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, chews tobacco Current Medications Current Medications Current Medications Prochlorperazine Edisylate (Compazine) 10 mg 1X ONCE IV ; Start 10/27/21 at 15:15; Stop 10/27/21 at 15:16; Status DC Diphenhydramine HCl (Benadryl) 25 mg 1X ONCE IVP Last administered on 10/27/21at 15:50; Start 10/27/21 at 15:15; Stop 10/27/21 at 15:16; Status DC Acetaminophen (Tylenol) 1,000 mg 1X ONCE PO Last administered on 10/27/21at 1 5:50; Start 10/27/21 at 15:15; Stop 10/27/21 at 15:16; Status DC Sodium Chloride 1,000 ml @ 1,000 mls/hr 1X ONCE IV Last administered on 10/27/21at 15:37; Start 10/27/21 at 14:45; Stop 10/27/21 at 15:44; Status DC Aspirin (Zuleyma Aspirin) 325 mg 1X ONCE PO Last administered on 10/27/21at 15:37; Start 10/27/21 at 15:15; Stop 10/27/21 at 15:16; Status DC Sodium Chloride 1,000 ml @ 100 mls/hr 1X ONCE IV ; Start 10/27/21 at 14:45; Stop 10/28/21 at 00:44; Status DC Magnesium Sulfate 50 ml @ 25 mls/hr 1X ONCE IV Last administered on 10/27/21at 15:37; Start 10/27/21 at 16:00; Stop 10/27/21 at 17:59; Status DC Ondansetron HCl (Zofran) 4 mg PRN Q8HRS PRN IVP NAUSEA/VOMITING; Start 10/27/21 at 15:15; Stop 10/28/21 at 15:14 Acetaminophen (Tylenol) 650 mg PRN Q4HRS PRN PO FEVER > 100.3'F; Start 10/27/21 at 15:15; Stop 10/28/21 at 15:14 Nitroglycerin (Nitrostat) 0.4 mg PRN Q5MIN PRN SL CHEST PAIN Last administered on 10/27/21at 17:55; Start 10/27/21 at 17:30 Insulin Human Lispro (HumaLOG) 0-9 UNITS TIDWMEALS SQ Last administered on 10/28/21at 09:04; Start 10/27/21 at 18:00 Dextrose (Dextrose 50%-Water Syringe) 12.5 gm PRN Q15MIN PRN IV SEE COMMENTS; Start 10/27/21 at 17:45; Status UNV Dextrose (Iv Dextrose 5%) 250 ml PRN Q15MIN PRN IV SEE COMMENTS; Start 10/27/21 at 17:45 Morphine Sulfate (Morphine Sulfate) 2 mg PRN Q2HR PRN IVP PAIN Last administered on 10/28/21at 05:57; Start 10/27/21 at 17:45 Sodium Chloride 1,000 ml @ 125 mls/hr Q8H IV Last administered on 10/28/21at 08:48; Start 10/27/21 at 17:45 Nicotine (Nicoderm Cq 14mg) 1 patch PRN DAILY PRN TD SMOKING CESSATION; Start 10/27/21 at 18:00 Nicotine Polacrilex (Nicorette Gum) 1 each PRN Q1HR PRN BC SMOKING CESSATION; Start 10/27/21 at 18:00 Amlodipine Besylate (Norvasc) 5 mg DAILY PO ; Start 10/28/21 at 09:00; Stop 10/27/21 at 21:36; Status DC Aspirin (Aspirin Chewable) 81 mg DAILY PO Last administered on 10/28/21at 08:47; Start 10/28/21 at 09:00 Clonazepam (KlonoPIN) 0.5 mg PRN BID PRN PO ANXIETY / AGITATION Last administered on 10/27/21 22:50; Start 10/27/21 at 18:30 Simvastatin (Zocor) 20 mg QHS PO Last administered on 10/27/21 22:50; Start 10/27/21 at 21:00 Losartan Potassium (Cozaar) 50 mg DAILY PO ; Start 10/28/21 at 09:00; Stop 10/27/21 at 21:36; Status DC Zolpidem Tartrate (Ambien) 5 mg PRN QHS PRN PO INSOMNIA, MAY REPEAT X1 Last administered on 10/27/21at 22:51; Start 10/27/21 at 18:30 Influenza Virus Vaccine Quadrival (Flulaval Quad [id number] Syringe) 0.5 ml ONCE ONCE VAX IM Last administered on 10/27/21 21:47; Start 10/27/21 at 20:00; Stop 10/27/21 at 20:01; Status DC Diphtheria/ Tetanus/Acell Pertussis (Boostrix) 0.5 ml ONCE ONCE VAX IM Last administered on 10/27/21at 21:49; Start 10/27/21 at 20:00; Stop 10/27/21 at 20:01; Status DC Amlodipine Besylate (Norvasc) 5 mg HS PO Last administered on 10/27/21 22:51; Start 10/27/21 at 21:45 Losartan Potassium (Cozaar) 50 mg HS PO Last administered on 10/27/21 22:50; Start 10/27/21 at 21:45 Hydrochlorothiazide (Hydrodiuril) 25 mg HS PO ; Start 10/28/21 at 21:00; Stop 10/27/21 at 22:25; Status DC Non-Formulary Medication (Gabapentin ) 2 tab TID PO ; Start 10/28/21 at 09:00; Stop 10/27/21 at 22:25; Status DC Non-Formulary Medication (Insulin Degludec (Tresiba)) 92 unit HS SQ ; Start 10/28/21 at 21:00; Stop 10/27/21 at 22:25; Status DC Hydrochlorothiazide (Hydrodiuril) 25 mg HS PO Last administered on 10/27/21at 22:50; Start 10/27/21 at 22:30 Gabapentin (Neurontin) 1,200 mg TID PO Last administered on 10/28/21at 08:47; Start 10/27/21 at 22:45 Insulin Glargine (Lantus Syringe) 92 unit QHS SQ Last administered on 10/27/21at 23:02; Start 10/27/21 at 21:45 Active Scripts Active Reported Hydrochlorothiazide 25 Mg Tablet 1 Tab PO HS Gabapentin 600 Mg Tablet 2 Tab PO TID Amphetamine Salts 20 Mg Tablet (Dextroamphetamine/Amphetamine) 20 Mg Tablet 1 Tab PO BID Tresiba (Insulin Degludec) 100 Unit/1 Ml Vial 92 Unit SQ HS Olmesartan Medoxomil 40 Mg Tablet 40 Mg PO HS Amlodipine Besylate 5 Mg Tablet 5 Mg PO DAILY Humalog (Insulin Lispro) 100 Unit/1 Ml Vial 0-8 Unit SQ QIDACHS Clonazepam (Clonazepam) 0.5 Mg Tablet 0.5 Mg PO PRN BID PRN Aspirin 81 Mg Tab.chew 81 Mg PO DAILY 30 Days Ambien (Zolpidem Tartrate) 10 Mg Tablet 10 Mg PO HS PRN Simvastatin 40 Mg Tablet 20 Mg PO QHS MDD Allergies Allergies: Coded Allergies: No Known Drug Allergies (Unverified , 02/17/16) ROS Review of System Negative for fever, chills, weight loss, shortness of breath, chest pain, indigestion, hematochezia, melena, and dysuria. Full 14-point review of systems is negative. Physical Exam Physical Examination General: Well-developed, well-nourished, white male, in no acute distress HEENT: Normocephalic andatraumatic. Tympanic membranes clear.Temporal arteriespulsatile and nontender.Fundoscopic exam unremarkable Neck: Supple without bruit, no meningismus Musculoskeletal: Stability:see neurologic. Gait exam:see neurologic. Tone:see neurologic.Strength:see neurologic. Neurological: Mental Status:intact, orientation, memory, attention span/concentration, language, fund of knowledge normal. Cranial Nerves:Pupils equal and reactive to light, extraocular movements areintact, visual moe are full to confrontation. Facial sensation is normal. There is no facial asymmetry. Vestibulo-ocular reflex is intact. Palate elevates and tongue protrudes in midline. All other cranial related problems are negative except as mentioned before.Reflexes:1+ and symmetric with flexor plantar responses. Motor:5/5 strength with normal tone and bulk. Coordination:Finger-nose finger and vraa-xm-fheh testing are normal. Rapid alternating movements and fine finger movements are intact. Gait:Normal, including tandem. Sensory:stocking loss. Vitals VITALS Vital Signs Date Time Temp Pulse Resp B/P (MAP) Pulse Ox O2 Delivery O2 Flow Rate FiO2 10/28/21 07:00 97.7 71 20 112/62 (79) 97 Room Air 97.7 Labs Labs Laboratory Tests Test 10/27/21 13:00 10/27/21 15:46 10/27/21 17:23 10/27/21 19:12 White Blood Count 12.1 x10^3/uL (4.0-11.0) Red Blood Count 4.68 x10^6/uL (4.30-5.70) Hemoglobin 13.9 g/dL (13.0-17.5) Hematocrit 42.2 % (39.0-53.0) Mean Corpuscular Volume 90 fL (79-100) Mean Corpuscular Hemoglobin 30 pg (25-35) Mean Corpuscular Hemoglobin Concent 33 g/dL (31-37) Red Cell Distribution Width 13.8 % (11.5-14.5) Platelet Count 313 x10^3/uL (140-400) Neutrophils (%) (Auto) 86 % (31-73) Lymphocytes (%) (Auto) 9 % (24-48) Monocytes (%) (Auto) 4 % (0-9) Eosinophils (%) (Auto) 0 % (0-3) Basophils (%) (Auto) 0 % (0-3) Neutrophils # (Auto) 10.4 x10^3/uL (1.8-7.7) Lymphocytes # (Auto) 1.1 x10^3/uL (1.0-4.8) Monocytes # (Auto) 0.5 x10^3/uL (0.0-1.1) Eosinophils # (Auto) 0.0 x10^3/uL (0.0-0.7) Basophils # (Auto) 0.0 x10^3/uL (0.0-0.2) Prothrombin Time 12.2 SEC (11.7-14.0) Prothromb Time International Ratio 0.9 (0.8-1.1) Activated Partial Thromboplast Time 27 SEC (24-38) D-Dimer (Amanda) < 0.27 ug/mlFEU Sodium Level 139 mmol/L (136-145) Potassium Level 3.4 mmol/L (3.5-5.1) Chloride Level 98 mmol/L (98-107) Carbon Dioxide Level 25 mmol/L (21-32) Anion Gap 16 (6-14) Blood Urea Nitrogen 31 mg/dL (8-26) Creatinine 1.4 mg/dL (0.7-1.3) Estimated GFR (Cockcroft-Gault) 54.6 BUN/Creatinine Ratio 22 (6-20) Glucose Level 152 mg/dL (70-99) Calcium Level 9.0 mg/dL (8.5-10.1) Total Bilirubin 0.4 mg/dL (0.2-1.0) Aspartate Amino Transf (AST/SGOT) 43 U/L (15-37) Alanine Aminotransferase (ALT/SGPT) 40 U/L (16-63) Alkaline Phosphatase 89 U/L (46-116) Troponin I High Sensitivity 9 ng/L (4-75) 6 ng/L (4-75) LS-Jgi-J-Type Natriuretic Peptide 9 pg/mL (0-124) Total Protein 7.3 g/dL (6.4-8.2) Albumin 4.0 g/dL (3.4-5.0) Albumin/Globulin Ratio 1.2 (1.0-1.7) Glucose (Fingerstick) 327 mg/dL (70-99) 268 mg/dL (70-99) Test 10/27/21 21:44 10/28/21 01:25 10/28/21 07:37 Glucose (Fingerstick) 199 mg/dL (70-99) 186 mg/dL (70-99) White Blood Count 9.2 x10^3/uL (4.0-11.0) Red Blood Count 4.29 x10^6/uL (4.30-5.70) Hemoglobin 13.0 g/dL (13.0-17.5) Hematocrit 39.3 % (39.0-53.0) Mean Corpuscular Volume 92 fL (79-100) Mean Corpuscular Hemoglobin 30 pg (25-35) Mean Corpuscular Hemoglobin Concent 33 g/dL (31-37) Red Cell Distribution Width 14.1 % (11.5-14.5) Platelet Count 272 x10^3/uL (140-400) Neutrophils (%) (Auto) 71 % (31-73) Lymphocytes (%) (Auto) 23 % (24-48) Monocytes (%) (Auto) 7 % (0-9) Eosinophils (%) (Auto) 0 % (0-3) Basophils (%) (Auto) 0 % (0-3) Neutrophils # (Auto) 6.4 x10^3/uL (1.8-7.7) Lymphocytes # (Auto) 2.1 x10^3/uL (1.0-4.8) Monocytes # (Auto) 0.6 x10^3/uL (0.0-1.1) Eosinophils # (Auto) 0.0 x10^3/uL (0.0-0.7) Basophils # (Auto) 0.0 x10^3/uL (0.0-0.2) Sodium Level 139 mmol/L (136-145) Potassium Level 4.3 mmol/L (3.5-5.1) Chloride Level 103 mmol/L (98-107) Carbon Dioxide Level 29 mmol/L (21-32) Anion Gap 7 (6-14) Blood Urea Nitrogen 26 mg/dL (8-26) Creatinine 1.2 mg/dL (0.7-1.3) Estimated GFR (Cockcroft-Gault) 65.2 Glucose Level 344 mg/dL (70-99) Calcium Level 8.2 mg/dL (8.5-10.1) Troponin I High Sensitivity 6 ng/L (4-75) Laboratory Tests Test 10/27/21 13:00 10/27/21 15:46 10/27/21 17:23 10/27/21 19:12 White Blood Count 12.1 x10^3/uL (4.0-11.0) Red Blood Count 4.68 x10^6/uL (4.30-5.70) Hemoglobin 13.9 g/dL (13.0-17.5) Hematocrit 42.2 % (39.0-53.0) Mean Corpuscular Volume 90 fL (79-100) Mean Corpuscular Hemoglobin 30 pg (25-35) Mean Corpuscular Hemoglobin Concent 33 g/dL (31-37) Red Cell Distribution Width 13.8 % (11.5-14.5) Platelet Count 313 x10^3/uL (140-400) Neutrophils (%) (Auto) 86 % (31-73) Lymphocytes (%) (Auto) 9 % (24-48) Monocytes (%) (Auto) 4 % (0-9) Eosinophils (%) (Auto) 0 % (0-3) Basophils (%) (Auto) 0 % (0-3) Neutrophils # (Auto) 10.4 x10^3/uL (1.8-7.7) Lymphocytes # (Auto) 1.1 x10^3/uL (1.0-4.8) Monocytes # (Auto) 0.5 x10^3/uL (0.0-1.1) Eosinophils # (Auto) 0.0 x10^3/uL (0.0-0.7) Basophils # (Auto) 0.0 x10^3/uL (0.0-0.2) Prothrombin Time 12.2 SEC (11.7-14.0) Prothromb Time International Ratio 0.9 (0.8-1.1) Activated Partial Thromboplast Time 27 SEC (24-38) D-Dimer (Amanda) < 0.27 ug/mlFEU Sodium Level 139 mmol/L (136-145) Potassium Level 3.4 mmol/L (3.5-5.1) Chloride Level 98 mmol/L (98-107) Carbon Dioxide Level 25 mmol/L (21-32) Anion Gap 16 (6-14) Blood Urea Nitrogen 31 mg/dL (8-26) Creatinine 1.4 mg/dL (0.7-1.3) Estimated GFR (Cockcroft-Gault) 54.6 BUN/Creatinine Ratio 22 (6-20) Glucose Level 152 mg/dL (70-99) Calcium Level 9.0 mg/dL (8.5-10.1) Total Bilirubin 0.4 mg/dL (0.2-1.0) Aspartate Amino Transf (AST/SGOT) 43 U/L (15-37) Alanine Aminotransferase (ALT/SGPT) 40 U/L (16-63) Alkaline Phosphatase 89 U/L (46-116) Troponin I High Sensitivity 9 ng/L (4-75) 6 ng/L (4-75) GI-Mvz-L-Type Natriuretic Peptide 9 pg/mL (0-124) Total Protein 7.3 g/dL (6.4-8.2) Albumin 4.0 g/dL (3.4-5.0) Albumin/Globulin Ratio 1.2 (1.0-1.7) Glucose (Fingerstick) 327 mg/dL (70-99) 268 mg/dL (70-99) Test 10/27/21 21:44 10/28/21 01:25 10/28/21 07:37 Glucose (Fingerstick) 199 mg/dL (70-99) 186 mg/dL (70-99) White Blood Count 9.2 x10^3/uL (4.0-11.0) Red Blood Count 4.29 x10^6/uL (4.30-5.70) Hemoglobin 13.0 g/dL (13.0-17.5) Hematocrit 39.3 % (39.0-53.0) Mean Corpuscular Volume 92 fL (79-100) Mean Corpuscular Hemoglobin 30 pg (25-35) Mean Corpuscular Hemoglobin Concent 33 g/dL (31-37) Red Cell Distribution Width 14.1 % (11.5-14.5) Platelet Count 272 x10^3/uL (140-400) Neutrophils (%) (Auto) 71 % (31-73) Lymphocytes (%) (Auto) 23 % (24-48) Monocytes (%) (Auto) 7 % (0-9) Eosinophils (%) (Auto) 0 % (0-3) Basophils (%) (Auto) 0 % (0-3) Neutrophils # (Auto) 6.4 x10^3/uL (1.8-7.7) Lymphocytes # (Auto) 2.1 x10^3/uL (1.0-4.8) Monocytes # (Auto) 0.6 x10^3/uL (0.0-1.1) Eosinophils # (Auto) 0.0 x10^3/uL (0.0-0.7) Basophils # (Auto) 0.0 x10^3/uL (0.0-0.2) Sodium Level 139 mmol/L (136-145) Potassium Level 4.3 mmol/L (3.5-5.1) Chloride Level 103 mmol/L (98-107) Carbon Dioxide Level 29 mmol/L (21-32) Anion Gap 7 (6-14) Blood Urea Nitrogen 26 mg/dL (8-26) Creatinine 1.2 mg/dL (0.7-1.3) Estimated GFR (Cockcroft-Gault) 65.2 Glucose Level 344 mg/dL (70-99) Calcium Level 8.2 mg/dL (8.5-10.1) Troponin I High Sensitivity 6 ng/L (4-75) Images Images CT head, 10/22/2021 6:04 PM No focal parenchymal lesion or hemorrhage is identified. There is no midline shift or sulcal effacement. No acute vascular territory infarction is identified. Mariano-white distinction is preserved. The ventricular system is within normal limits without compression hydrocephalus. The basal cisterns are well maintained. The visualized portions of the paranasal sinuses and mastoid air cells are well- pneumatized. No acute fractures. IMPRESSION: No acute intracranial abnormality. Assessment/Plan Assessment/Plan Impression: Headaches, migraine type, against cluster headache is the lack of vasomotor symptoms, but this is still possible. Steroid response is nonspecific, steroids can help with all sorts of headaches. In particular I find no evidence of temporal arteritis. In any event, he is feeling much better now and wants to go home. Diabetic neuropathy Recommendations: Send home on simple analgesics for now I gave him my card, he can certainly call if symptoms recur. Hold on resuming steroids Follow-up with me or my nurse practitioner in 3 weeks, I will consider additional studies including MRI of the brain, MR venogram, MR angiogram, even lumbar puncture. Thank you for letting me help with the patient's care VALDEZ TABOR MD Oct 28, 2021 10:28
--- NOTE | 2021-10-28 10:51 | NUR ---
Discharge Note: WILIAM NAVARRO Discharge instructions and discharge home medications reviewed with the patient and a copy given. All questions have been answered and understanding verbalized. The following instructions and handouts were given: Home meds as directed. Follow up with PCP in a week Follow up with Dr. Healy in 3 weeks. Discontinued lines and drains: IV intact, no complications Patient discharged to home with self care ambulatory accompanied by the patient's father at 1045.
--- NOTE | 2021-10-28 13:59 | HP ---
DATE OF SERVICE: 10/28/2021 ADMIT DATE: 10/27/2021 CHIEF COMPLAINT AND HISTORY OF PRESENT ILLNESS: This 46-year-old male is well known to me from followup in the office. I actually had seen the patient in the office earlier in the week of admission with severe headache after he had been to the Emergency Room for the same and had negative CT of the head. The character of the headache was most consistent with left-sided cluster headaches. He was started on a prednisone taper with increased insulin doses to cover elevated sugars associated with them. He feels like the headaches have decreased in frequency; however, he was brought into the hospital with severe headache on the day of admission that came suddenly, lasted a minute or less, but brought him to his knees with nausea and had several days in a row. He also was having some left-sided nonexertional tightness in his chest radiating to the left scapular area over the last couple of weeks and was admitted to the Emergency Room with chest pain as well as severe headache for Cardiology as well as neurological evaluation. PAST MEDICAL HISTORY: Remarkable for insulin-dependent diabetes, hyperlipidemia, hypertension, prior pneumothorax, prior cheek fracture. PAST SURGICAL HISTORY: He has done right knee arthroscopy for meniscus and shoulder surgeries x 6 in the past. MEDICATIONS: Brought with the patient, listed on the computer, have been addressed. ALLERGIES: He has no known drug allergies. SOCIAL HISTORY: He is a never smoker. Occasional alcohol. Denies drug use. FAMILY HISTORY: Noncontributory. REVIEW OF SYSTEMS: As mentioned above. PHYSICAL EXAMINATION: GENERAL: He is a well-developed, well-nourished white male in no acute distress, by the time of my examination HEAD, EYES, EARS, NOSE AND THROAT: Unremarkable. NECK: Supple, without adenopathy or thyromegaly. CHEST: Clear to auscultation. HEART: Regular rate and rhythm without S3, S4 or murmur. ABDOMEN: Soft, nontender, without hepatosplenomegaly or masses. EXTREMITIES: Without cyanosis, clubbing, edema. NEUROLOGIC: He is intact. LABORATORY DATA: Initial labs show relatively normal CBC. Sugar was elevated on admission at 152 and has been labile since which is his normal. Creatinine was 1.4, potassium 3.4 with improvement overnight. Chest x-ray showed no acute disease. ASSESSMENT: 1. Severe headache, likely cluster with the searing component to it and the shortness of it yesterday as a trigeminal neuralgia would have to be considered in addition. 2. Chest pain, atypical, with Cardiology evaluation and followup. PLAN: Control pain. Cardiology and Neurology opinions with plans to follow. DEEPA/JORGITO/NOHEMY DR: Joyce TID: [id number]
--- NOTE | 2021-10-28 14:59 | DS ---
DATE OF DISCHARGE: 10/28/2021 PRIMARY DIAGNOSES: 1. Severe headache, likely cluster. 2. Chest pain, atypical, but outpatient ischemic evaluation planned by Cardiology. 3. Insulin-dependent diabetes mellitus. CHIEF COMPLAINT AND HISTORY OF PRESENT ILLNESS: This 46-year-old male admitted through the Emergency Room with chest pain as well as severe headache. SUMMARY OF STAY: The patient was admitted, given morphine overnight as well as high flow oxygen, which he felt did relieve the headache fairly significantly. He felt like the prednisone he had been on for the week for headaches had actually decreased the frequency of the headaches in addition. He was chasing around sugars with insulin because of the steroids. Cardiology saw him and felt outpatient ischemic workup should be done and Neurology did not see him as he was pushing for discharge and apparently were going to be later in the day. DISPOSITION: The patient is discharged to home. DIET: ADA diet. ACTIVITY: As tolerated. FOLLOWUP: Office this coming week. DISCHARGE MEDICATIONS: Regular home meds. Upon followup in the office, we will schedule the outpatient ischemic workup. Consider Neurology consultation as an outpatient and consider a trial of Tegretol if the headaches are not improving. CELI/KYLIE DR: Joyce TID: [id number]
--- NOTE | 2021-10-28 19:04 | EKG ---
[facility] [address] [place] [address] Test Date: 2021-10-27 Test Time: 12:35:55 Pat Name: WILIAM NAVARRO Department: Room: 209 1 Gender: M [employer]: : 1975 Requested By: MIGDALIA BOOTH Order Number: [id number] Reading MD: Minesh Beltre MD Measurements Intervals [place] Rate: 94 P: 31 MD: 170 QRS: -39 QRSD: 108 T: 62 QT: 372 QTc: 471 Interpretive Statements SINUS RHYTHM LAD Electronically Signed On 10-30-2021 11:05:07 SERVICE DELIVERY MANAGEMENT CONSULTANT by Minesh Beltre MD
[2021-10-28] MEDS ORDERED: INSULIN DEGLUDEC SQ SCH (21:00)
[2021-10-28] MEDS ORDERED: hydroCHLOROthiazide 25 MG TABLET PO SCH (21:00)
== END 2021-10-28 10:45 | disposition home or self-care (01) ==
LOC: ER 12:29 → 2 NORTH 15:10
PROVIDERS: ADMIT Family Medicine; ATTEND Family Medicine
DX: G44.009 Cluster headache syndrome, unspecified, not intractable (principal); R07.89 Other chest pain; I10 Essential (primary) hypertension; E78.00 Pure hypercholesterolemia, unspecified; E78.5 Hyperlipidemia, unspecified; E86.0 Dehydration; N17.9 Acute kidney failure, unspecified; K21.9 Gastro-esophageal reflux disease without esophagitis; E10.40 Type 1 diabetes mellitus with diabetic neuropathy, unspecified; Z23 Encounter for immunization; Z71.85 Encounter for immunization safety counseling; Z72.0 Tobacco use; Z79.4 Long term (current) use of insulin; Z79.899 Other long term (current) drug therapy; Z98.890 Other specified postprocedural states
CPT/HCPCS: 36415; 71045; 80048; 80053; 82962; 83880; 84484; 85025; 85379; 85610; 85730; 90471; 90472; 90686; 90715; 93005; 96361; 96365; 96366; 96372; 96375; 96376; 99285; 99406; G0378; J1200; J1815; J2270; J3475; J7030; G0379

== ENCOUNTER 2022-01-21 10:36 | Emergency (ER) | payer OTHER ==
[~2022-01-21] VITALS: Ht 190.5 cm; Wt 127.2 kg
[~2022-01-21 10:36] MED LIST changes: +DEXT20TA24 PO; +GABA600T7 PO; +HYDR25TA10 PO; +INSU100V37 SQ; +OLME40TA16 PO
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
[2022-01-21] MEDS ORDERED: oxyCODONE/APAP 5/325 1 TAB TABLET PO ONE (11:00)
[2022-01-21] MEDS ORDERED: OXYC1TAB15 PO (11:24)
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
[2022-01-21 13:17] VITALS: BP 146/86
== END 2022-01-21 13:25 | disposition home or self-care (01) ==
LOC: ER 10:36
DX: S82.832D Other fracture of upper and lower end of left fibula, subsequent encounter for closed fracture with routine healing (principal); E10.9 Type 1 diabetes mellitus without complications; E78.00 Pure hypercholesterolemia, unspecified; I10 Essential (primary) hypertension; V49.49XD Driver injured in collision with other motor vehicles in traffic accident, subsequent encounter
CPT/HCPCS: 29505; 73590; 73610; 73630; 99285-25